=== PATIENT | male | born 1945 | race Caucasian/White ===

== ENCOUNTER 2016-08-30 10:18 | Emergency (ER) | payer MEDICARE, BC ==
--- NOTE | 2016-08-30 11:16 | EDDOCDS ---
Nurse's Notes [facility] Name: Dereck Yañez Age: 71 yrs Sex: Male : 1945 Arrival Date: 08/30/2016 Time: 10:18 Bed TR7 Private MD: Diagnosis: Pain in right shoulder-suspect bursitis Presentation: 08/30 10:31 Presenting complaint: Patient states: im achey. mainly right arm. symptoms for a couple srm of months. today felt like he couldn't get out of bed. states he cant lift his right arm very high. symptoms started with left arm pain since he fell off a ladder. changed medicines for cholesterol and insulin at about the same time. he stopped the new insulin then stopped it but has returned to new insulin as of last week. numbness sometimes to right hand in joints. his PMD is aware of these symptoms. when he wakes in the am his muscle in right arm but improves throughout the day. Presenting complaint: Patient states: denies chest or back pain. thighs hurt in the am too but once he stands up he's fine. Adult Sepsis Screening: The patient does not have new or worsening altered mentation. Patient's respiratory rate is less than 22. Systolic blood pressure is greater than 100. Patient has a qSOFA score of 0- Negative Sepsis Screen. Suicide/Homicide risk assessment- the patient denies having any suicidal and/or homicidal ideations and does not present with any other emotional, behavioral or mental health complaints. Status: Patient is not a financial services internship or dependent. Transition of care:. 10:31 Acuity: JEFFERY Level 3 [facility] 10:31 Method Of Arrival: Walkin/Carried/Asstd srm Triage Assessment: 10:41 General: Appears in no apparent distress, Behavior is appropriate for age, cooperative. srm Pain: Pain currently is 10 out of 10 on a pain scale. Musculoskeletal: Reports right arm pain. Historical: - Allergies: no known allergies; - Home Meds: 1. folic acid 1 mg oral tab once daily 2. levothyroxine 112 mcg Oral tab 1 tab once daily 3. atenolol 100 mg Oral tab 1 tab twice a day 4. lisinopril 20 mg Oral tab 1 tab once daily 5. atorvastatin 40 mg oral tab 1 tab once daily was told to stopp it last week for 2 weeks 6. aspirin 325 mg Oral tab 1 tab once daily 7. iron 65mg daily 8. vitamin b12 5000mg daily 9. Toujeo SoloStar 100 units subcutaneous inpn daily 10. [place]-3 oral oral daily 11. fenofibrate oral 145 mg oral once daily - PMHx: Diabetes - IDDM: uncontrolled; Hypercholesterolemia; Thyroid problem; cardia arrythmia; - PSHx: pig heart valve; cardiac bypass; 2 toes amputations; - Social history: Smoking status: Patient states former smoker of tobacco. No barriers to communication noted, The patient speaks fluent Icelandic, Speaks appropriately for age. - Family history: Not pertinent. - : The pt / caregiver states he / she is not on anticoagulants. Home medication list is obtained from the patient. - Exposure Risk Screening:: None identified. Screenin:14 Screening information is obtained from the patient. Fall risk: No risks identified. [facility] Assistance ADL's: requires no assistance with activities of daily living. Abuse/DV Screen: The patient / caregiver reports he/she is: not in a situation that causes fear, pain or injury. Nutritional screening: No deficits noted. Advance Directives: There is no active DNR order. home support is adequate. Assessment: 11:12 General: Appears in no apparent distress, comfortable, Behavior is appropriate for age, h cooperative, pleasant. Pain: Location: right arm Pain currently is 4 out of 10 on a pain scale. Neurological: No deficits noted. Level of Consciousness is awake, alert, Oriented to person, place, time. Respiratory: Onset: The symptoms/episode began/occurred Airway is patent Respiratory effort is even, unlabored, Respiratory pattern is regular, symmetrical. Derm: Skin is pink, warm & dry. Musculoskeletal: Range of motion limited in right shoulder. Vital Signs: 10:20 BP 176 / 86; Pulse 62; Resp 18; Temp 96.5; Pulse Ox 97% ; Weight 104.33 kg; Height 6 jlm ft. 1 in. (185.42 cm); Pain 9/10; 10:20 Body Mass Index 30.34 (104.33 kg, 185.42 cm) [facility] Vitals: 10:20 Log In Time: August 30, 2016 at 10:21. [facility] ED Course: 10:19 Patient visited by Abigail Parada, [employer]. [facility] 10:19 Patient moved to Waiting jlm 10:26 Patient moved to Pre RCE jlm 10:35 Triage Initiated srm 10:41 Patient moved to Triage 2 srm 10:42 Patient moved to Triage 1 srm 10:44 [facility]el Hutton [facility] btw 10:44 Alise Reid MD is Attending Physician. btw 10:44 Patient visited by Noel Hutton PA. btw 10:[facility] btw 11:12 Patient moved to TR7 [facility] 11:14 The patient / caregiver is instructed regarding the plan of care and ED course. [facility] 11:14 No IV's were initiated during this patient's visit. No procedures done that require [facility] assistance. Order Results: There are currently no results for this order. Outcome: 10:54 Discharge ordered by Provider. btw 11:14 Discharge Assessment: Patient awake, alert and oriented x 3. No cognitive and/or [facility] functional deficits noted. Patient verbalized understanding of disposition instructions. patient administered narcotics - no. The following High Risk Discharge criteria are identified: None. Discharged to home ambulatory, with significant other. Condition: good Condition: stable Condition: improved. Discharge instructions given to patient, Instructed on discharge instructions, follow up and referral plans. Demonstrated understanding of instructions, Pt was receptive of discharge instructions/ teaching. No special radiology studies were completed. Property :Personal belongings accompany Pt. 11:15 Patient left the ED. [facility] Signatures: Shelli Acosta, RN RN [facility] Noel Hutton PA PA btw Hafner, Jane, RN RN [facility] Abigail Parada, [employer] Unit [facility] MTDD
--- NOTE | 2016-08-30 11:16 | EDDOCDS ---
Physician Documentation [facility] Name: Dereck Yañez Age: 71 yrs Sex: Male : 1945 Arrival Date: 08/30/2016 Time: 10:18 Bed TR7 Private MD: Disposition: 08/30/16 10:54 Discharged to Home/Self Care. Impression: Pain in right shoulder - suspect bursitis. - Condition is Stable. - Discharge Instructions: Shoulder Pain, Vbla-xz-Vpcz, Bursitis, Lfyz-vu-Xwms. - Prescriptions for Voltaren 1 % Topical gel - apply 2 gram by TOPICAL route 4 times per day; 100 gram. - Medication Reconciliation, Local Pharmacy Hours form. - Follow up: Orthopaedics, [facility]; When: Call to arrange an appointment; Reason: Further diagnostic work-up, Recheck today's complaints, Continuance of care. - Problem is new. - Symptoms are unchanged. Historical: - Allergies: no known allergies; - Home Meds: 1. folic acid 1 mg oral tab once daily 2. levothyroxine 112 mcg Oral tab 1 tab once daily 3. atenolol 100 mg Oral tab 1 tab twice a day 4. lisinopril 20 mg Oral tab 1 tab once daily 5. atorvastatin 40 mg oral tab 1 tab once daily was told to stopp it last week for 2 weeks 6. aspirin 325 mg Oral tab 1 tab once daily 7. iron 65mg daily 8. vitamin b12 5000mg daily 9. Toujeo SoloStar 100 units subcutaneous inpn daily 10. [place]-3 oral oral daily 11. fenofibrate oral 145 mg oral once daily - PMHx: Diabetes - IDDM: uncontrolled; Hypercholesterolemia; Thyroid problem; cardia arrythmia; - PSHx: pig heart valve; cardiac bypass; 2 toes amputations; - Social history: Smoking status: Patient states former smoker of tobacco. No barriers to communication noted, The patient speaks fluent Samoan, Speaks appropriately for age. - Family history: Not pertinent. - : The pt / caregiver states he / she is not on anticoagulants. Home medication list is obtained from the patient. - Exposure Risk Screening:: None identified. Vital Signs: 08/30 10:20 BP 176 / 86; Pulse 62; Resp 18; Temp 96.5; Pulse Ox 97% ; Weight 104.33 kg / 230.01 jlm lbs; Height 6 ft. 1 in. (185.42 cm); Pain 9/10; 10:20 Body Mass Index 30.34 (104.33 kg, 185.42 cm) [facility] Signatures: Shelli Acosta, RN RN Noel Talbert PA PA btw Ruth Desouza RN RN [facility] MTDD
--- NOTE | 2016-09-01 12:16 | EDDOCDS ---
Physician Documentation [facility] Name: Dereck Yañez Jr Age: 71 yrs Sex: Male : 1945 Arrival Date: 08/30/2016 Time: 10:18 Bed TR7 Private MD: Disposition: 08/30/16 10:54 Discharged to Home/Self Care. Impression: Pain in right shoulder - suspect bursitis. - Condition is Stable. - Discharge Instructions: Shoulder Pain, Cfas-gv-Vtew, Bursitis, Utds-kw-Pjrx. - Prescriptions for Voltaren 1 % Topical gel - apply 2 gram by TOPICAL route 4 times per day; 100 gram. - Medication Reconciliation, Local Pharmacy Hours form. - Follow up: Orthopaedics, [facility]; When: Call to arrange an appointment; Reason: Further diagnostic work-up, Recheck today's complaints, Continuance of care. - Problem is new. - Symptoms are unchanged. Historical: - Allergies: no known allergies; - Home Meds: 1. folic acid 1 mg oral tab once daily 2. levothyroxine 112 mcg Oral tab 1 tab once daily 3. atenolol 100 mg Oral tab 1 tab twice a day 4. lisinopril 20 mg Oral tab 1 tab once daily 5. atorvastatin 40 mg oral tab 1 tab once daily was told to stopp it last week for 2 weeks 6. aspirin 325 mg Oral tab 1 tab once daily 7. iron 65mg daily 8. vitamin b12 5000mg daily 9. Toujeo SoloStar 100 units subcutaneous inpn daily 10. [place]-3 oral oral daily 11. fenofibrate oral 145 mg oral once daily - PMHx: Diabetes - IDDM: uncontrolled; Hypercholesterolemia; Thyroid problem; cardia arrythmia; - PSHx: pig heart valve; cardiac bypass; 2 toes amputations; - Social history: Smoking status: Patient states former smoker of tobacco. No barriers to communication noted, The patient speaks fluent Cuban, Speaks appropriately for age. - Family history: Not pertinent. - : The pt / caregiver states he / she is not on anticoagulants. Home medication list is obtained from the patient. - Exposure Risk Screening:: None identified. Vital Signs: 08/30 10:20 BP 176 / 86; Pulse 62; Resp 18; Temp 96.5; Pulse Ox 97% ; Weight 104.33 kg / 230.01 jlm lbs; Height 6 ft. 1 in. (185.42 cm); Pain 9/10; 10:20 Body Mass Index 30.34 (104.33 kg, 185.42 cm) [facility] MDM: 11:44 [facility] Payment Agreement was scanned into [employer] and attached to record. lg 21:12 T-Sheet-- Draft Copy was scanned into [employer] and attached to record. klr Signatures: Shelli Acosta, RN Tracy Le, Rogelio Reg Noel Hutton PA PA btw Hafner, Jane, RN RN cjh Redder, Kathie klr The chart was reviewed and I authenticate all verbal orders and agree with the evaluation and treatment provided.Attachments: 11:44 [facility] Payment Agreement lg 21:12 T-Sheet-- Draft Copy klr Chart Complete MTDD
--- NOTE | 2016-09-01 12:16 | EDDOCDS ---
Nurse's Notes [facility] Name: Dereck Yañez Jr Age: 71 yrs Sex: Male : 1945 Arrival Date: 08/30/2016 Time: 10:18 Bed TR7 Private MD: Diagnosis: Pain in right shoulder-suspect bursitis Presentation: 08/30 10:31 Presenting complaint: Patient states: im achey. mainly right arm. symptoms for a couple srm of months. today felt like he couldn't get out of bed. states he cant lift his right arm very high. symptoms started with left arm pain since he fell off a ladder. changed medicines for cholesterol and insulin at about the same time. he stopped the new insulin then stopped it but has returned to new insulin as of last week. numbness sometimes to right hand in joints. his PMD is aware of these symptoms. when he wakes in the am his muscle in right arm but improves throughout the day. Presenting complaint: Patient states: denies chest or back pain. thighs hurt in the am too but once he stands up he's fine. Adult Sepsis Screening: The patient does not have new or worsening altered mentation. Patient's respiratory rate is less than 22. Systolic blood pressure is greater than 100. Patient has a qSOFA score of 0- Negative Sepsis Screen. Suicide/Homicide risk assessment- the patient denies having any suicidal and/or homicidal ideations and does not present with any other emotional, behavioral or mental health complaints. Status: Patient is not a interlibrary loan services librarian or dependent. Transition of care:. 10:31 Acuity: JEFFERY Level 3 [facility] 10:31 Method Of Arrival: Walkin/Carried/Asstd srm Triage Assessment: 10:41 General: Appears in no apparent distress, Behavior is appropriate for age, cooperative. srm Pain: Pain currently is 10 out of 10 on a pain scale. Musculoskeletal: Reports right arm pain. Historical: - Allergies: no known allergies; - Home Meds: 1. folic acid 1 mg oral tab once daily 2. levothyroxine 112 mcg Oral tab 1 tab once daily 3. atenolol 100 mg Oral tab 1 tab twice a day 4. lisinopril 20 mg Oral tab 1 tab once daily 5. atorvastatin 40 mg oral tab 1 tab once daily was told to stopp it last week for 2 weeks 6. aspirin 325 mg Oral tab 1 tab once daily 7. iron 65mg daily 8. vitamin b12 5000mg daily 9. Toujeo SoloStar 100 units subcutaneous inpn daily 10. [place]-3 oral oral daily 11. fenofibrate oral 145 mg oral once daily - PMHx: Diabetes - IDDM: uncontrolled; Hypercholesterolemia; Thyroid problem; cardia arrythmia; - PSHx: pig heart valve; cardiac bypass; 2 toes amputations; - Social history: Smoking status: Patient states former smoker of tobacco. No barriers to communication noted, The patient speaks fluent Serbian, Speaks appropriately for age. - Family history: Not pertinent. - : The pt / caregiver states he / she is not on anticoagulants. Home medication list is obtained from the patient. - Exposure Risk Screening:: None identified. Screenin:14 Screening information is obtained from the patient. Fall risk: No risks identified. [facility] Assistance ADL's: requires no assistance with activities of daily living. Abuse/DV Screen: The patient / caregiver reports he/she is: not in a situation that causes fear, pain or injury. Nutritional screening: No deficits noted. Advance Directives: There is no active DNR order. home support is adequate. Assessment: 11:12 General: Appears in no apparent distress, comfortable, Behavior is appropriate for age, cjh cooperative, pleasant. Pain: Location: right arm Pain currently is 4 out of 10 on a pain scale. Neurological: No deficits noted. Level of Consciousness is awake, alert, Oriented to person, place, time. Respiratory: Onset: The symptoms/episode began/occurred Airway is patent Respiratory effort is even, unlabored, Respiratory pattern is regular, symmetrical. Derm: Skin is pink, warm & dry. Musculoskeletal: Range of motion limited in right shoulder. Vital Signs: 10:20 BP 176 / 86; Pulse 62; Resp 18; Temp 96.5; Pulse Ox 97% ; Weight 104.33 kg; Height 6 jlm ft. 1 in. (185.42 cm); Pain 9/10; 10:20 Body Mass Index 30.34 (104.33 kg, 185.42 cm) [facility] Vitals: 10:20 Log In Time: August 30, 2016 at 10:21. [facility] ED Course: 10:19 Patient visited by Abigail Parada, [employer]. [facility] 10:19 Patient moved to Waiting jlm 10:26 Patient moved to Pre RCE jlm 10:35 Triage Initiated srm 10:41 Patient moved to Triage 2 srm 10:42 Patient moved to Triage 1 srm 10:44 Noel [facility]utton [facility] btw 10:44 Alise Reid MD is Attending Physician. btw 10:44 Patient visited by Noel Hutton PA. btw 10:53 [facility]. btw 11:12 Patient moved to TR7 cj 11:14 The patient / caregiver is instructed regarding the plan of care and ED course. [facility] 11:14 No IV's were initiated during this patient's visit. No procedures done that require [facility] assistance. 11:37 Patient name changed from Dereck\S\\S\Casco\S\ to Dereck\S\E\S\Otilio. EDMS 11:44 [facility] Payment Agreement was scanned into [employer] and attached to record. 11:52 Patient name changed from Dereck\S\E\S\Casco\S\ to Dereck\S\E\S\Otilio Jr. EDMS 21:12 T-Sheet-- Draft Copy was scanned into [employer] and attached to record. klr Order Results: There are currently no results for this order. Outcome: 10:54 Discharge ordered by Provider. btw 11:14 Discharge Assessment: Patient awake, alert and oriented x 3. No cognitive and/or [facility] functional deficits noted. Patient verbalized understanding of disposition instructions. patient administered narcotics - no. The following High Risk Discharge criteria are identified: None. Discharged to home ambulatory, with significant other. Condition: good Condition: stable Condition: improved. Discharge instructions given to patient, Instructed on discharge instructions, follow up and referral plans. Demonstrated understanding of instructions, Pt was receptive of discharge instructions/ teaching. No special radiology studies were completed. Property :Personal belongings accompany Pt. 11:15 Patient left the ED. [facility] Signatures: Dispatcher [employer] EDMS Shelli Acosta, RN RN [facility] Tracy Lopez, Reg Reg lg Noel Hutton PA PA btw Hafner, Jane, RN RN [facility] Abigail Parada, Conveyor Operator Unit [facility] Viv Pearson Chart Complete MTDD
--- NOTE | 2016-09-01 12:16 | EDDOCDS ---
Physician Documentation [facility] Name: Dereck Yañez Jr Age: 71 yrs Sex: Male : 1945 Arrival Date: 08/30/2016 Time: 10:18 Bed TR7 Private MD: Disposition: 08/30/16 10:54 Discharged to Home/Self Care. Impression: Pain in right shoulder - suspect bursitis. - Condition is Stable. - Discharge Instructions: Shoulder Pain, Bcnb-iz-Qfly, Bursitis, Lruj-tf-Jvsa. - Prescriptions for Voltaren 1 % Topical gel - apply 2 gram by TOPICAL route 4 times per day; 100 gram. - Medication Reconciliation, Local Pharmacy Hours form. - Follow up: Orthopaedics, [facility]; When: Call to arrange an appointment; Reason: Further diagnostic work-up, Recheck today's complaints, Continuance of care. - Problem is new. - Symptoms are unchanged. Historical: - Allergies: no known allergies; - Home Meds: 1. folic acid 1 mg oral tab once daily 2. levothyroxine 112 mcg Oral tab 1 tab once daily 3. atenolol 100 mg Oral tab 1 tab twice a day 4. lisinopril 20 mg Oral tab 1 tab once daily 5. atorvastatin 40 mg oral tab 1 tab once daily was told to stopp it last week for 2 weeks 6. aspirin 325 mg Oral tab 1 tab once daily 7. iron 65mg daily 8. vitamin b12 5000mg daily 9. Toujeo SoloStar 100 units subcutaneous inpn daily 10. [place]-3 oral oral daily 11. fenofibrate oral 145 mg oral once daily - PMHx: Diabetes - IDDM: uncontrolled; Hypercholesterolemia; Thyroid problem; cardia arrythmia; - PSHx: pig heart valve; cardiac bypass; 2 toes amputations; - Social history: Smoking status: Patient states former smoker of tobacco. No barriers to communication noted, The patient speaks fluent Guinean, Speaks appropriately for age. - Family history: Not pertinent. - : The pt / caregiver states he / she is not on anticoagulants. Home medication list is obtained from the patient. - Exposure Risk Screening:: None identified. Vital Signs: 08/30 10:20 BP 176 / 86; Pulse 62; Resp 18; Temp 96.5; Pulse Ox 97% ; Weight 104.33 kg / 230.01 jlm lbs; Height 6 ft. 1 in. (185.42 cm); Pain 9/10; 10:20 Body Mass Index 30.34 (104.33 kg, 185.42 cm) [facility] MDM: 11:44 [facility] Payment Agreement was scanned into MED[employer] and attached to record. lg 21:12 T-Sheet-- Draft Copy was scanned into [facility] and attached to record. klr Signatures: Shelli Acosta, RN Tracy Le, Rogelio Reg Noel Hutton PA PA btw Hafner, Jane, RN RN cjh Redder, Kathie klr The chart was reviewed and I authenticate all verbal orders and agree with the evaluation and treatment provided.Attachments: 11:44 [facility] Payment Agreement lg 21:12 T-Sheet-- Draft Copy klr Chart Complete MTDD
== END 2016-08-30 11:15 | disposition home or self-care (01) ==
LOC: M ED 10:18
DX: M25.511 Pain in right shoulder (principal); E11.9 Type 2 diabetes mellitus without complications; E78.00 Pure hypercholesterolemia, unspecified; E07.9 Disorder of thyroid, unspecified; I49.9 Cardiac arrhythmia, unspecified; Z79.899 Other long term (current) drug therapy; Z79.82 Long term (current) use of aspirin; Z79.4 Long term (current) use of insulin

== ENCOUNTER 2017-09-23 08:07 | Inpatient (IN) | payer MEDICARE ==
[2017-09-23] MEDS: NS 1,000 ML IV ×2 (02:29→16:31)
[2017-09-23] MEDS: LEVOTHYROXINE 100MCG TABLET (0.1MG) PO (06:00)
[2017-09-23 08:54] LABS: BEDSIDE GLUCOSE 351 MG/DL (83-110)
[2017-09-23 08:54] LABS: BASO % 0.1 % (0.0-1.0); HEMATOCRIT 36.2 % (42.0-52.0); HEMOGLOBIN 12.4 g/dl (14.0-18.0); IMMATURE GRANULOCYTE % 1.8 % (0-3.0); MEAN CORPUSCULAR HGB CONC 34.3 g/dl (32.0-36.5); MEAN CORPUSCULAR VOLUME 84.6 fl (80.0-96.0); MONO # 1.5 10^3/uL (0.0-0.8); MONO % 9.6 % (0.0-5.0); NEUTROPHILS # 13.5 10^3/uL (1.8-7.7); NEUTROPHILS % 87.5 % (36.0-66.0); PLATELET COUNT, AUTOMATED 132 10^3/uL (150-450); RED BLOOD COUNT 4.28 10^6/uL (4.30-6.10); RED CELL DISTRIBUTION WIDTH 15.2 % (11.5-14.5); WHITE BLOOD COUNT 15.4 10^3/uL (4.0-10.0)
[2017-09-23] MEDS: ASPIRIN 81 MG CHEW TABLET PO (08:56)
[2017-09-23] MEDS: ONDANSETRON 4MG/2ML VIAL (J2405) IV (08:56)
[2017-09-23] MEDS: MORPHINE 4 MG/ML 1ML VIAL (J2270) IV (08:56)
[2017-09-23 09:13] LABS: INR 1.23; PROTHROMBIN TIME 15.7 SECONDS (12.4-14.5)
[2017-09-23 09:14] LABS: ALBUMIN 2.9 GM/DL (3.2-5.2); ALBUMIN/GLOBULIN RATIO 0.66 (1.00-1.93); ALKALINE PHOSPHATASE 74 U/L (45-117); ALT/SGPT 19 U/L (12-78); ANION GAP 15 MEQ/L (8-16); BILIRUBIN,DIRECT 0.5 MG/DL (0.0-0.2); BILIRUBIN,TOTAL 1.4 MG/DL (0.2-1.0); BLOOD UREA NITROGEN 51 MG/DL (7-18); CALCIUM LEVEL 8.1 MG/DL (8.8-10.2); CARBON DIOXIDE LEVEL 18 MEQ/L (21-32); CHLORIDE LEVEL 98 MEQ/L (98-107); CPK CREATINE PHOSPHOKINASE 74 U/L (39-308); CREATININE FOR GFR 2.38 MG/DL (0.70-1.30); GLOMERULAR FILTRATION RATE 28.6 (>42); GLUCOSE, FASTING 319 MG/DL (70-100); NT-PRO BNP 2361 PG/ML (<125); POTASSIUM SERUM 4.2 MEQ/L (3.5-5.1); SODIUM LEVEL 131 MEQ/L (136-145); TOTAL PROTEIN 7.3 GM/DL (6.4-8.2); TROPONIN I 0.02 NG/ML (< 0.10)
[2017-09-23 09:17] LABS: LYMPH # 0.2 10^3/uL (1.5-4.5); POSITIVE DIFF POS FLAG
[2017-09-23 09:19] LABS: AST/SGOT 15 U/L (7-37); CK-MB VALUE MASS 1.3 NG/ML (0.0-3.6); LIPASE 138 U/L (73-393); MB/CK RELATIVE INDEX 1.75 (< OR =4)
[2017-09-23 09:33] LABS: LACTIC ACID SEPSIS PROTOCOL 2.4 MMOL/L (0.4-2.0)
[2017-09-23] MEDS ORDERED: IPRATROPIUM 0.5MG/ALBUTEROL 2.5MG INH SOL UD 3ML (DUONEB)(J7620) NEB (13:15)
[2017-09-23] MEDS: IPRATROPIUM 0.5MG/ALBUTEROL 2.5MG INH SOL UD 3ML (DUONEB)(J7620) NEB ×2 (13:32→20:00)
[2017-09-23] MEDS ORDERED: ONDANSETRON 4 MG TAB (S0181) PO (13:45)
[2017-09-23] MEDS ORDERED: BISACODYL 5 MG TAB PO (13:45)
[2017-09-23] MEDS: LISINOPRIL 20 MG TAB PO (13:57)
[2017-09-23] MEDS: ATORVASTATIN 20 MG TAB PO (13:57)
[2017-09-23] MEDS: FOLIC ACID 1 MG TAB PO (13:58)
[2017-09-23] MEDS: AZITHROMYCIN INJ 500 MG, VIAL MATE ADAPTER 1 EACH in D5W 250 ML IV (13:58)
[2017-09-23 15:16] LABS: BEDSIDE GLUCOSE 408 MG/DL (83-110)
[2017-09-23] MEDS ORDERED: GLUCOSE 4 GM CHEW TABLET PO (15:30)
[2017-09-23] MEDS ORDERED: GLUCAGON FOR INJ 1 MG VIAL (J1610) SC (15:30)
[2017-09-23] MEDS ORDERED: DEXTROSE 50% 50 ML SYRINGE IV (15:30)
[2017-09-23 15:50] LABS: CK-MB VALUE MASS 1.1 NG/ML (0.0-3.6); CPK CREATINE PHOSPHOKINASE 60 U/L (39-308); MB/CK RELATIVE INDEX 1.83 (< OR =4); TROPONIN I 0.02 NG/ML (< 0.10)
[2017-09-23] MEDS: CEFTRIAXONE SOD 2 GM in APPROPRIATE DILUENT 1 EA IV (16:29)
[2017-09-23] MEDS: CYANOCOBALAMIN 500 MCG TAB PO (16:30)
[2017-09-23] MEDS: FERROUS SULFATE 325MG TAB PO (16:30)
[2017-09-23] MEDS: FENOFIBRATE 145 MG TAB (TRICOR) PO (16:30)
[2017-09-23] MEDS: METOPROLOL TARTRATE 100 MG TAB PO (16:31)
[2017-09-23] MEDS: OMEGA-3 1050MG CAPSULE PO (16:31)
[2017-09-23] MEDS: HumaLOG INSULIN (NovoLOG) PER UNIT SC ×2 (16:59→20:56)
[2017-09-23] MEDS: ACETAMINOPHEN TAB 650MG DOSE (2X325MG) PO ×2 (19:46→23:46)
[2017-09-23] MEDS: HEPARIN SOD (PORCINE) 5000 UNITS/ML VIAL SQ (21:02)
[2017-09-23] MEDS: LEVEMIR (INSULIN DETEMIR) 1 UNITS/0.01ML SC (21:03)
[2017-09-23 21:06] LABS: BEDSIDE GLUCOSE 241 MG/DL (83-110)
[2017-09-23 22:00] LABS: CK-MB VALUE MASS 1.2 NG/ML (0.0-3.6); CPK CREATINE PHOSPHOKINASE 68 U/L (39-308); MB/CK RELATIVE INDEX 1.76 (< OR =4); TROPONIN I 0.04 NG/ML (< 0.10)
[2017-09-24 01:33] LABS: AMORPHOUS SEDIMENT SMALL (NEGATIVE); APPEARANCE, URINE CLOUDY (CLEAR); BACTERIA, URINE AUTO 1+ (NEGATIVE); BILIRUBIN, URINE AUTO NEGATIVE (NEGATIVE); BLOOD, URINE BLOOD 1+ (NEGATIVE); COLOR, URINE YELLOW (YELLOW); GLUCOSE, URINE (UA) AUTO 3+ mg/dL (NEGATIVE); KETONE, URINE AUTO NEGATIVE (NEGATIVE); LEUKOCYTE ESTERASE, URINE AUTO NEGATIVE (NEGATIVE); MUCUS, URINE SMALL (NEGATIVE); NITRITE, URINE AUTO NEGATIVE (NEGATIVE); PROTEIN, URINE AUTO 3+ mg/dL (NEGATIVE); RBC, URINE AUTO 7 /HPF (0-3); SQUAMOUS EPITHELIAL CELL UR AU 3 /HPF (0-6); WBC, URINE AUTO 3 /HPF (0-3)
[2017-09-24] MEDS: IPRATROPIUM 0.5MG/ALBUTEROL 2.5MG INH SOL UD 3ML (DUONEB)(J7620) NEB ×4 (02:00→20:00)
[2017-09-24] MEDS: ACETAMINOPHEN TAB 650MG DOSE (2X325MG) PO ×2 (03:53→08:23)
[2017-09-24] MEDS: VANCOMYCIN HCL 1,000 MG, VIAL MATE ADAPTER 1 EACH in D5W 250 ML IV ×2 (04:58→06:15)
[2017-09-24 05:55] LABS: BASO % 0.1 % (0.0-1.0); EOS % 0.1 % (0.0-3.0); HEMATOCRIT 30.3 % (42.0-52.0); HEMOGLOBIN 10.3 g/dl (14.0-18.0); IMMATURE GRANULOCYTE % 1.7 % (0-3.0); LYMPH # 0.5 10^3/uL (1.5-4.5); LYMPH % 3.5 % (24.0-44.0); MEAN CORPUSCULAR HEMOGLOBIN 28.8 pg (27.0-33.0); MEAN CORPUSCULAR VOLUME 84.6 fl (80.0-96.0); MONO # 1.7 10^3/uL (0.0-0.8); MONO % 13.2 % (0.0-5.0); NEUTROPHILS # 10.5 10^3/uL (1.8-7.7); NEUTROPHILS % 81.4 % (36.0-66.0); PLATELET COUNT, AUTOMATED 133 10^3/uL (150-450); RED BLOOD COUNT 3.58 10^6/uL (4.30-6.10); RED CELL DISTRIBUTION WIDTH 15.4 % (11.5-14.5); WHITE BLOOD COUNT 12.8 10^3/uL (4.0-10.0)
[2017-09-24 06:15] LABS: ALBUMIN 2.1 GM/DL (3.2-5.2); ALBUMIN/GLOBULIN RATIO 0.48 (1.00-1.93); ALKALINE PHOSPHATASE 61 U/L (45-117); ALT/SGPT 12 U/L (12-78); ANION GAP 9 MEQ/L (8-16); AST/SGOT 12 U/L (7-37); BILIRUBIN,TOTAL 0.6 MG/DL (0.2-1.0); BLOOD UREA NITROGEN 54 MG/DL (7-18); CALCIUM LEVEL 7.4 MG/DL (8.8-10.2); CARBON DIOXIDE LEVEL 21 MEQ/L (21-32); CHLORIDE LEVEL 103 MEQ/L (98-107); CREATININE FOR GFR 2.43 MG/DL (0.70-1.30); GLOMERULAR FILTRATION RATE 27.9 (>42); GLUCOSE, FASTING 118 MG/DL (70-100); MAGNESIUM LEVEL 2.1 MG/DL (1.8-2.4); POTASSIUM SERUM 3.5 MEQ/L (3.5-5.1); SODIUM LEVEL 133 MEQ/L (136-145); TOTAL PROTEIN 6.5 GM/DL (6.4-8.2)
[2017-09-24] MEDS: LEVOTHYROXINE 100MCG TABLET (0.1MG) PO (06:15)
[2017-09-24] MEDS: ASPIRIN ENTERIC 325 MG TAB PO (08:23)
[2017-09-24] MEDS: HumaLOG INSULIN (NovoLOG) PER UNIT SC ×4 (08:23→20:28)
[2017-09-24] MEDS: ATORVASTATIN 20 MG TAB PO (08:23)
[2017-09-24] MEDS: FENOFIBRATE 145 MG TAB (TRICOR) PO (08:23)
[2017-09-24] MEDS: METOPROLOL TARTRATE 100 MG TAB PO (08:24)
[2017-09-24] MEDS: HEPARIN SOD (PORCINE) 5000 UNITS/ML VIAL SQ ×2 (08:24→20:54)
[2017-09-24] MEDS: FOLIC ACID 1 MG TAB PO (08:24)
[2017-09-24] MEDS: FERROUS SULFATE 325MG TAB PO (08:24)
[2017-09-24] MEDS: OMEGA-3 1050MG CAPSULE PO (08:24)
[2017-09-24] MEDS: CYANOCOBALAMIN 500 MCG TAB PO (08:24)
[2017-09-24] MEDS: NS 1,000 ML IV ×3 (08:25→19:29)
[2017-09-24 11:34] LABS: BEDSIDE GLUCOSE 138 MG/DL (83-110)
[2017-09-24] MEDS: traMADol 50 MG TAB PO ×2 (12:23→23:21)
[2017-09-24] MEDS: AZITHROMYCIN INJ 500 MG, VIAL MATE ADAPTER 1 EACH in D5W 250 ML IV (13:39)
[2017-09-24] MEDS: CEFTRIAXONE SOD 2 GM in APPROPRIATE DILUENT 1 EA IV (15:05)
[2017-09-24 16:57] LABS: BEDSIDE GLUCOSE 378 MG/DL (83-110)
[2017-09-24 20:30] LABS: BEDSIDE GLUCOSE 88 MG/DL (83-110)
[2017-09-24] MEDS: LEVEMIR (INSULIN DETEMIR) 1 UNITS/0.01ML SC (20:54)
[2017-09-25] MEDS: IPRATROPIUM 0.5MG/ALBUTEROL 2.5MG INH SOL UD 3ML (DUONEB)(J7620) NEB ×4 (01:28→20:00)
[2017-09-25] MEDS: NS 1,000 ML IV ×3 (04:00→21:31)
[2017-09-25 05:10] LABS: BASO % 0.1 % (0.0-1.0); EOS % 0.1 % (0.0-3.0); HEMOGLOBIN 9.8 g/dl (14.0-18.0); IMMATURE GRANULOCYTE % 1.4 % (0-3.0); LYMPH # 0.3 10^3/uL (1.5-4.5); LYMPH % 2.5 % (24.0-44.0); MEAN CORPUSCULAR HEMOGLOBIN 28.6 pg (27.0-33.0); MEAN CORPUSCULAR HGB CONC 33.8 g/dl (32.0-36.5); MEAN CORPUSCULAR VOLUME 84.5 fl (80.0-96.0); MONO # 1.6 10^3/uL (0.0-0.8); MONO % 11.9 % (0.0-5.0); NEUTROPHILS # 11.3 10^3/uL (1.8-7.7); PLATELET COUNT, AUTOMATED 138 10^3/uL (150-450); RED BLOOD COUNT 3.43 10^6/uL (4.30-6.10); RED CELL DISTRIBUTION WIDTH 15.7 % (11.5-14.5); WHITE BLOOD COUNT 13.4 10^3/uL (4.0-10.0)
[2017-09-25 05:27] LABS: ALBUMIN 1.9 GM/DL (3.2-5.2); ALBUMIN/GLOBULIN RATIO 0.44 (1.00-1.93); ALKALINE PHOSPHATASE 78 U/L (45-117); ALT/SGPT 16 U/L (12-78); ANION GAP 10 MEQ/L (8-16); AST/SGOT 21 U/L (7-37); BILIRUBIN,TOTAL 0.5 MG/DL (0.2-1.0); BLOOD UREA NITROGEN 54 MG/DL (7-18); CALCIUM LEVEL 7.4 MG/DL (8.8-10.2); CARBON DIOXIDE LEVEL 21 MEQ/L (21-32); CHLORIDE LEVEL 104 MEQ/L (98-107); CREATININE FOR GFR 2.38 MG/DL (0.70-1.30); GLOMERULAR FILTRATION RATE 28.6 (>42); GLUCOSE, FASTING 44 MG/DL (70-100); MAGNESIUM LEVEL 2.1 MG/DL (1.8-2.4); POTASSIUM SERUM 3.1 MEQ/L (3.5-5.1); SODIUM LEVEL 135 MEQ/L (136-145); TOTAL PROTEIN 6.2 GM/DL (6.4-8.2)
[2017-09-25] MEDS: VANCOMYCIN HCL 1,000 MG, VIAL MATE ADAPTER 1 EACH in D5W 250 ML IV (05:56)
[2017-09-25] MEDS: LEVOTHYROXINE 112MCG TABLET (0.112MG) PO (05:56)
[2017-09-25 06:48] LABS: BEDSIDE GLUCOSE 114 MG/DL (83-110)
[2017-09-25] MEDS: HumaLOG INSULIN (NovoLOG) PER UNIT SC ×4 (07:30→20:30)
[2017-09-25] MEDS: ATORVASTATIN 20 MG TAB PO (08:27)
[2017-09-25] MEDS: CYANOCOBALAMIN 500 MCG TAB PO (08:27)
[2017-09-25] MEDS: HEPARIN SOD (PORCINE) 5000 UNITS/ML VIAL SQ ×2 (08:27→20:44)
[2017-09-25] MEDS: ASPIRIN ENTERIC 325 MG TAB PO (08:27)
[2017-09-25 08:28] LABS: BEDSIDE GLUCOSE 139 MG/DL (83-110)
[2017-09-25] MEDS: OMEGA-3 1050MG CAPSULE PO (08:28)
[2017-09-25] MEDS: FENOFIBRATE 145 MG TAB (TRICOR) PO (08:28)
[2017-09-25] MEDS: FOLIC ACID 1 MG TAB PO (08:28)
[2017-09-25] MEDS: METOPROLOL TARTRATE 100 MG TAB PO (08:28)
[2017-09-25] MEDS: FERROUS SULFATE 325MG TAB PO (08:28)
[2017-09-25] MEDS: POTASSIUM CHLORIDE 10 MEQ SR TABLET PO (08:47)
[2017-09-25] MEDS: traMADol 50 MG TAB PO ×2 (12:40→20:53)
[2017-09-25 12:41] LABS: BEDSIDE GLUCOSE 121 MG/DL (83-110)
[2017-09-25] MEDS: AZITHROMYCIN INJ 500 MG, VIAL MATE ADAPTER 1 EACH in D5W 250 ML IV (13:45)
[2017-09-25] MEDS: CEFTRIAXONE SOD 2 GM in APPROPRIATE DILUENT 1 EA IV (15:28)
[2017-09-25 17:00] LABS: BEDSIDE GLUCOSE 97 MG/DL (83-110)
[2017-09-25 20:34] LABS: BEDSIDE GLUCOSE 100 MG/DL (83-110)
[2017-09-25] MEDS ORDERED: LEVEMIR (INSULIN DETEMIR) 1 UNITS/0.01ML SC (21:00)
[2017-09-26] MEDS: IPRATROPIUM 0.5MG/ALBUTEROL 2.5MG INH SOL UD 3ML (DUONEB)(J7620) NEB (02:00)
[2017-09-26 05:40] LABS: BASO % 0.2 % (0.0-1.0); EOS % 0.4 % (0.0-3.0); HEMATOCRIT 30.4 % (42.0-52.0); HEMOGLOBIN 10.1 g/dl (14.0-18.0); IMMATURE GRANULOCYTE % 1.9 % (0-3.0); LYMPH # 0.5 10^3/uL (1.5-4.5); LYMPH % 4.8 % (24.0-44.0); MEAN CORPUSCULAR HEMOGLOBIN 28.5 pg (27.0-33.0); MEAN CORPUSCULAR HGB CONC 33.2 g/dl (32.0-36.5); MEAN CORPUSCULAR VOLUME 85.9 fl (80.0-96.0); MONO # 1.1 10^3/uL (0.0-0.8); MONO % 11.8 % (0.0-5.0); NEUTROPHILS # 7.5 10^3/uL (1.8-7.7); NEUTROPHILS % 80.9 % (36.0-66.0); PLATELET COUNT, AUTOMATED 141 10^3/uL (150-450); RED BLOOD COUNT 3.54 10^6/uL (4.30-6.10); RED CELL DISTRIBUTION WIDTH 15.6 % (11.5-14.5); WHITE BLOOD COUNT 9.3 10^3/uL (4.0-10.0)
[2017-09-26 06:01] LABS: ALBUMIN 1.9 GM/DL (3.2-5.2); ALBUMIN/GLOBULIN RATIO 0.42 (1.00-1.93); ALKALINE PHOSPHATASE 103 U/L (45-117); ALT/SGPT 15 U/L (12-78); ANION GAP 10 MEQ/L (8-16); AST/SGOT 20 U/L (7-37); BILIRUBIN,TOTAL 0.4 MG/DL (0.2-1.0); BLOOD UREA NITROGEN 42 MG/DL (7-18); CALCIUM LEVEL 6.9 MG/DL (8.8-10.2); CARBON DIOXIDE LEVEL 20 MEQ/L (21-32); CHLORIDE LEVEL 105 MEQ/L (98-107); CREATININE FOR GFR 1.98 MG/DL (0.70-1.30); GLOMERULAR FILTRATION RATE 35.4 (>42); GLUCOSE, FASTING 75 MG/DL (70-100); MAGNESIUM LEVEL 2.2 MG/DL (1.8-2.4); POTASSIUM SERUM 3.6 MEQ/L (3.5-5.1); SODIUM LEVEL 135 MEQ/L (136-145); TOTAL PROTEIN 6.4 GM/DL (6.4-8.2); VANCOMYCIN LEVEL TROUGH 17.3 UG/ML (10.0-20.0)
[2017-09-26] MEDS: LEVOTHYROXINE 112MCG TABLET (0.112MG) PO (06:11)
[2017-09-26] MEDS: VANCOMYCIN HCL 1,000 MG, VIAL MATE ADAPTER 1 EACH in D5W 250 ML IV (06:11)
[2017-09-26] MEDS: NS 1,000 ML IV (06:11)
[2017-09-26 06:46] LABS: BEDSIDE GLUCOSE 83 MG/DL (83-110)
[2017-09-26] MEDS: HumaLOG INSULIN (NovoLOG) PER UNIT SC (07:30)
[2017-09-26 08:45] LABS: LACTIC ACID SEPSIS PROTOCOL 1.3 MMOL/L (0.4-2.0)
[2017-09-26] MEDS: ATORVASTATIN 20 MG TAB PO (09:00)
[2017-09-26] MEDS: HEPARIN SOD (PORCINE) 5000 UNITS/ML VIAL SQ (09:00)
[2017-09-26] MEDS: FENOFIBRATE 145 MG TAB (TRICOR) PO (09:14)
[2017-09-26] MEDS: CYANOCOBALAMIN 500 MCG TAB PO (09:14)
[2017-09-26] MEDS: OMEGA-3 1050MG CAPSULE PO (09:14)
[2017-09-26] MEDS: DOXYCYCLINE HYCLATE 100 MG TAB PO (09:14)
[2017-09-26] MEDS: FOLIC ACID 1 MG TAB PO (09:14)
[2017-09-26] MEDS: ASPIRIN ENTERIC 325 MG TAB PO (09:14)
[2017-09-26] MEDS: FERROUS SULFATE 325MG TAB PO (09:14)
[2017-09-26] MEDS: METOPROLOL TARTRATE 100 MG TAB PO (09:15)
[2017-09-28 00:07] LABS: BODY FLUID CULTURE Not Indicated (.); LEGIONELLA ANTIGEN URINE Negative (Negative); ORGANISM ID Not indicated. (.); SPECIMEN SOURCE Urine (.); URINE STREP PNEUMONIAE ANTIGEN Negative (Negative)
== END 2017-09-26 11:52 | disposition home or self-care (01) | DRG 871 ==
LOC: M MSPAV 09-25 17:10 → M ED 08:07 → M ED INP 11:26 → M PCU 14:48
DX: A41.9 Sepsis, unspecified organism (principal); J18.9 Pneumonia, unspecified organism; J90 Pleural effusion, not elsewhere classified; N17.9 Acute kidney failure, unspecified; E87.2 Acidosis; E46 Unspecified protein-calorie malnutrition; E87.1 Hypo-osmolality and hyponatremia; E86.0 Dehydration; R65.20 Severe sepsis without septic shock; E11.649 Type 2 diabetes mellitus with hypoglycemia without coma; L97.529 Non-pressure chronic ulcer of other part of left foot with unspecified severity; Z95.3 Presence of xenogenic heart valve; Z95.1 Presence of aortocoronary bypass graft; Z89.421 Acquired absence of other right toe(s); Z87.891 Personal history of nicotine dependence; Z88.8 Allergy status to other drugs, medicaments and biological substances; Z91.041 Radiographic dye allergy status; Z79.82 Long term (current) use of aspirin; Z79.899 Other long term (current) drug therapy

== ENCOUNTER 2017-09-27 11:57 | Inpatient (IN) | payer MEDICARE ==
[2017-09-27] MEDS: LEVOTHYROXINE 112MCG TABLET (0.112MG) PO (06:00)
[2017-09-27] MEDS: METOPROLOL TARTRATE 100 MG TAB PO ×2 (09:00→20:39)
[2017-09-27] MEDS: amLODIPine 5 MG TAB PO ×2 (09:00→20:39)
[~2017-09-27 11:57] MED LIST: ACETAMINOPHEN TAB 650MG DOSE (2X325MG) PO; CEFTAROLINE FOSAMIL 600 MG in D5W MINI-BAG PLUS 50 ML IV; DEXTROSE 50% 50 ML SYRINGE IV; GLUCAGON FOR INJ 1 MG VIAL (J1610) SC; GLUCOSE 4 GM CHEW TABLET PO; IPRATROPIUM 0.5MG/ALBUTEROL 2.5MG INH SOL UD 3ML (DUONEB)(J7620) NEB
[2017-09-27] MEDS: HumaLOG INSULIN (NovoLOG) PER UNIT SC ×3 (12:00→20:42)
[2017-09-27] MEDS: CYANOCOBALAMIN 500 MCG TAB PO (12:27)
[2017-09-27] MEDS: ATORVASTATIN 20 MG TAB PO (12:27)
[2017-09-27] MEDS: ASPIRIN 325 MG TAB PO (12:27)
[2017-09-27] MEDS: DOCUSATE SODIUM 100 MG CAP PO ×2 (12:28→20:39)
[2017-09-27] MEDS: FENOFIBRATE 145 MG TAB (TRICOR) PO (12:28)
[2017-09-27] MEDS: FOLIC ACID 1 MG TAB PO (12:28)
[2017-09-27] MEDS: OMEGA-3 1050MG CAPSULE PO (12:28)
[2017-09-27] MEDS: FERROUS SULFATE 325MG TAB PO (12:28)
[2017-09-27 12:42] LABS: BEDSIDE GLUCOSE 231 MG/DL (83-110)
[2017-09-27] MEDS: METOCLOPRAMIDE INJ 10MG/2ML VIAL (J2765) IV (13:57)
[2017-09-27] MEDS: CEFTAROLINE FOSAMIL 400 MG in D5W MINI-BAG PLUS 50 ML IV (13:58)
[2017-09-27 14:17] LABS: HEMATOCRIT 31.7 % (42.0-52.0); HEMOGLOBIN 10.7 g/dl (14.0-18.0); MEAN CORPUSCULAR HEMOGLOBIN 28.4 pg (27.0-33.0); MEAN CORPUSCULAR HGB CONC 33.8 g/dl (32.0-36.5); MEAN CORPUSCULAR VOLUME 84.1 fl (80.0-96.0); PLATELET COUNT, AUTOMATED 171 10^3/uL (150-450); RED BLOOD COUNT 3.77 10^6/uL (4.30-6.10); RED CELL DISTRIBUTION WIDTH 15.1 % (11.5-14.5); WHITE BLOOD COUNT 12.1 10^3/uL (4.0-10.0)
[2017-09-27 14:40] LABS: ERYTHROCYTE SEDIMENTATION RATE 126 mm/hr (0-20)
[2017-09-27 14:47] LABS: ALBUMIN 2.1 GM/DL (3.2-5.2); ALBUMIN/GLOBULIN RATIO 0.51 (1.00-1.93); ALKALINE PHOSPHATASE 132 U/L (45-117); ALT/SGPT 21 U/L (12-78); ANION GAP 14 MEQ/L (8-16); AST/SGOT 26 U/L (7-37); BILIRUBIN,TOTAL 0.7 MG/DL (0.2-1.0); BLOOD UREA NITROGEN 35 MG/DL (7-18); CALCIUM LEVEL 7.7 MG/DL (8.8-10.2); CARBON DIOXIDE LEVEL 19 MEQ/L (21-32); CHLORIDE LEVEL 101 MEQ/L (98-107); GLOMERULAR FILTRATION RATE 39.5 (>42); GLUCOSE, FASTING 222 MG/DL (70-100); POTASSIUM SERUM 4.2 MEQ/L (3.5-5.1); SODIUM LEVEL 134 MEQ/L (136-145); TOTAL PROTEIN 6.2 GM/DL (6.4-8.2)
[2017-09-27 15:22] LABS: LDH LACTATE DEHYDROGENASE 199 U/L (87-241)
[2017-09-27] MEDS ORDERED: MOM 30ML SUSPENSION UDC PO (15:30)
[2017-09-27] MEDS: IPRATROPIUM 0.5MG/ALBUTEROL 2.5MG INH SOL UD 3ML (DUONEB)(J7620) NEB (16:00)
[2017-09-27] MEDS ORDERED: LIDOCAINE 1% MDV 20ML VIAL As Ordered (16:04)
[2017-09-27 18:05] LABS: BF MONONUCLEAR CELL % 23.2 % (0-0); BF POLYMORPHONUCLEAR CELL % 76.8 % (0-0); RBC BODY FLUID < 2 10^3/uL (<2); WBC BODY FLUID 259 /uL (0-10)
[2017-09-27 18:06] LABS: APPEARANCE, BODY FLUID CLEAR (CLEAR); PLEURAL FL COLOR YELLOW (COLORLESS); SOURCE, BODY FLUID PLEURAL
[2017-09-27 18:07] LABS: BF DIFF IF INDICATED? YES (NO)
[2017-09-27 18:10] LABS: BEDSIDE GLUCOSE 227 MG/DL (83-110)
[2017-09-27 18:20] LABS: PH BODY FLUID 7.076 UNITS (NOT ESTABLISHED); SOURCE, BODY FLUID pH PLEURAL
[2017-09-27 18:29] LABS: AMYLASE, BODY FLUID 49 U/L (NOT ESTABLISHED); CHOLESTEROL, BODY FLUID < 50 MG/DL (NOT ESTABLISHED); LDH, BODY FLUID 1089 U/L (NOT ESTABLISHED); SOURCE, BODY FLUID ALBUMIN PLEURAL; SOURCE, BODY FLUID AMYLASE PLEURAL; SOURCE, BODY FLUID CHOL PLEURAL; SOURCE, BODY FLUID GLUCOSE PLEURAL; SOURCE, BODY FLUID LDH PLEURAL; SOURCE, BODY FLUID TOT PROTEIN PLEURAL; SOURCE, BODY FLUID TRIG PLEURAL; TOTAL PROTEIN, BODY FLUID 4.1 G/DL (NOT ESTABLISHED); TRIGLYCERIDE, BODY FLUID 62 MG/DL (NOT ESTABLISHED)
[2017-09-27] MEDS: SENOKOT S TAB PO (20:39)
[2017-09-27 21:01] LABS: BEDSIDE GLUCOSE 217 MG/DL (83-110)
[2017-09-28] MEDS: hydrALAZINE INJ 20 MG/ML VIAL IV ×4 (01:10→18:17)
[2017-09-28] MEDS: CEFTAROLINE FOSAMIL 400 MG in D5W MINI-BAG PLUS 50 ML IV ×2 (01:10→14:19)
[2017-09-28] MEDS: traMADol 50 MG TAB PO (01:11)
[2017-09-28 05:06] LABS: HEMATOCRIT 30.9 % (42.0-52.0); HEMOGLOBIN 10.5 g/dl (14.0-18.0); MEAN CORPUSCULAR HEMOGLOBIN 28.1 pg (27.0-33.0); MEAN CORPUSCULAR VOLUME 82.6 fl (80.0-96.0); PLATELET COUNT, AUTOMATED 170 10^3/uL (150-450); RED BLOOD COUNT 3.74 10^6/uL (4.30-6.10); RED CELL DISTRIBUTION WIDTH 15.3 % (11.5-14.5); WHITE BLOOD COUNT 10.9 10^3/uL (4.0-10.0)
[2017-09-28 05:19] LABS: ANION GAP 14 MEQ/L (8-16); BLOOD UREA NITROGEN 35 MG/DL (7-18); CARBON DIOXIDE LEVEL 15 MEQ/L (21-32); CHLORIDE LEVEL 105 MEQ/L (98-107); CREATININE FOR GFR 1.65 MG/DL (0.70-1.30); GLOMERULAR FILTRATION RATE 43.6 (>42); GLUCOSE, FASTING 200 MG/DL (70-100); POTASSIUM SERUM 3.6 MEQ/L (3.5-5.1); SODIUM LEVEL 134 MEQ/L (136-145)
[2017-09-28] MEDS: LEVOTHYROXINE 112MCG TABLET (0.112MG) PO (05:56)
[2017-09-28] MEDS ORDERED: LEVALBUTEROL 1.25 MG/0.5 ML CONCENTRATE NEB NEB (07:30)
[2017-09-28] MEDS: LEVALBUTEROL 1.25 MG/0.5 ML CONCENTRATE NEB NEB ×3 (08:00→20:00)
[2017-09-28] MEDS: IPRATROPIUM 0.5MG/ALBUTEROL 2.5MG INH SOL UD 3ML (DUONEB)(J7620) NEB ×4 (08:00→23:03)
[2017-09-28] MEDS: HumaLOG INSULIN (NovoLOG) PER UNIT SC ×4 (08:17→21:00)
[2017-09-28] MEDS: FENOFIBRATE 145 MG TAB (TRICOR) PO (08:18)
[2017-09-28] MEDS: FOLIC ACID 1 MG TAB PO (08:18)
[2017-09-28] MEDS: CYANOCOBALAMIN 500 MCG TAB PO (08:18)
[2017-09-28] MEDS: ASPIRIN 325 MG TAB PO (08:18)
[2017-09-28] MEDS: PERCOCET 5MG/325MG TAB PO ×2 (08:18→21:19)
[2017-09-28] MEDS: FERROUS SULFATE 325MG TAB PO (08:19)
[2017-09-28] MEDS: amLODIPine 5 MG TAB PO (08:19)
[2017-09-28] MEDS: ATORVASTATIN 20 MG TAB PO (08:19)
[2017-09-28] MEDS: DOCUSATE SODIUM 100 MG CAP PO ×2 (08:20→21:20)
[2017-09-28] MEDS: OMEGA-3 1050MG CAPSULE PO (08:20)
[2017-09-28] MEDS: SENOKOT S TAB PO ×2 (08:20→21:18)
[2017-09-28] MEDS: PANTOPRAZOLE 40MG TAB (PROTONIX) PO (08:20)
[2017-09-28] MEDS: METOPROLOL TARTRATE 100 MG TAB PO (08:20)
[2017-09-28 11:39] LABS: BEDSIDE GLUCOSE 244 MG/DL (83-110)
[2017-09-28] MEDS: NS 1,000 ML IV (12:44)
[2017-09-28 16:48] LABS: BEDSIDE GLUCOSE 166 MG/DL (83-110)
[2017-09-28] MEDS: cloNIDine 0.1 MG TAB PO (21:18)
[2017-09-29] MEDS: NS 1,000 ML IV ×2 (00:33→09:30)
[2017-09-29 00:34] LABS: BEDSIDE GLUCOSE 250 MG/DL (83-110)
[2017-09-29] MEDS: hydrALAZINE INJ 20 MG/ML VIAL IV ×4 (00:48→18:27)
[2017-09-29] MEDS: LEVALBUTEROL 1.25 MG/0.5 ML CONCENTRATE NEB NEB ×4 (02:00→20:00)
[2017-09-29] MEDS: CEFTAROLINE FOSAMIL 400 MG in D5W MINI-BAG PLUS 50 ML IV ×2 (02:12→13:59)
[2017-09-29 05:48] LABS: HEMATOCRIT 29.9 % (42.0-52.0); MEAN CORPUSCULAR HEMOGLOBIN 28.1 pg (27.0-33.0); MEAN CORPUSCULAR HGB CONC 33.4 g/dl (32.0-36.5); PLATELET COUNT, AUTOMATED 147 10^3/uL (150-450); RED BLOOD COUNT 3.56 10^6/uL (4.30-6.10); RED CELL DISTRIBUTION WIDTH 15.1 % (11.5-14.5); WHITE BLOOD COUNT 8.1 10^3/uL (4.0-10.0)
[2017-09-29 06:00] LABS: ANION GAP 10 MEQ/L (8-16); BLOOD UREA NITROGEN 35 MG/DL (7-18); CALCIUM LEVEL 8.1 MG/DL (8.8-10.2); CARBON DIOXIDE LEVEL 20 MEQ/L (21-32); CHLORIDE LEVEL 107 MEQ/L (98-107); CREATININE FOR GFR 1.96 MG/DL (0.70-1.30); GLOMERULAR FILTRATION RATE 35.8 (>42); GLUCOSE, FASTING 178 MG/DL (70-100); POTASSIUM SERUM 3.4 MEQ/L (3.5-5.1); SODIUM LEVEL 137 MEQ/L (136-145)
[2017-09-29] MEDS: LEVOTHYROXINE 112MCG TABLET (0.112MG) PO (06:28)
[2017-09-29] MEDS: PERCOCET 5MG/325MG TAB PO ×2 (06:32→20:18)
[2017-09-29] MEDS: HumaLOG INSULIN (NovoLOG) PER UNIT SC ×4 (07:30→20:32)
[2017-09-29] MEDS: IPRATROPIUM 0.5MG/ALBUTEROL 2.5MG INH SOL UD 3ML (DUONEB)(J7620) NEB ×3 (08:00→22:15)
[2017-09-29] MEDS: amLODIPine 5 MG TAB PO ×2 (10:25→14:01)
[2017-09-29] MEDS: METOPROLOL TARTRATE 100 MG TAB PO (10:26)
[2017-09-29] MEDS: POTASSIUM CHLORIDE 10 MEQ SR TABLET PO (10:26)
[2017-09-29] MEDS ORDERED: ALTEPLASE 2 MG/2 ML VIAL (J2997 PER 1MG) XX (10:45)
[2017-09-29] MEDS ORDERED: CETACAINE SPRAY 5GM As Ordered (11:51)
[2017-09-29] MEDS ORDERED: MIDAZOLAM INJ 2 MG/2 ML VIAL (J2250) As Ordered ×3 (11:52)
[2017-09-29 13:50] LABS: BEDSIDE GLUCOSE 171 MG/DL (83-110)
[2017-09-29] MEDS: ASPIRIN 325 MG TAB PO (14:01)
[2017-09-29] MEDS: ATORVASTATIN 20 MG TAB PO (14:02)
[2017-09-29] MEDS: DOCUSATE SODIUM 100 MG CAP PO ×2 (14:20→20:18)
[2017-09-29] MEDS: FENOFIBRATE 145 MG TAB (TRICOR) PO (14:21)
[2017-09-29] MEDS: SENOKOT S TAB PO ×2 (14:22→20:17)
[2017-09-29] MEDS: FOLIC ACID 1 MG TAB PO (14:22)
[2017-09-29] MEDS: CYANOCOBALAMIN 500 MCG TAB PO (14:22)
[2017-09-29] MEDS: FERROUS SULFATE 325MG TAB PO (14:22)
[2017-09-29] MEDS: PANTOPRAZOLE 40MG TAB (PROTONIX) PO (14:26)
[2017-09-29] MEDS: OMEGA-3 1050MG CAPSULE PO (14:26)
[2017-09-29 17:58] LABS: BEDSIDE GLUCOSE 299 MG/DL (83-110)
[2017-09-30] MEDS: hydrALAZINE INJ 20 MG/ML VIAL IV ×3 (01:05→14:03)
[2017-09-30] MEDS: CEFTAROLINE FOSAMIL 400 MG in D5W MINI-BAG PLUS 50 ML IV (01:05)
[2017-09-30] MEDS: PERCOCET 5MG/325MG TAB PO ×2 (03:49→20:41)
[2017-09-30 05:42] LABS: HEMOGLOBIN 9.6 g/dl (14.0-18.0); MEAN CORPUSCULAR HEMOGLOBIN 28.2 pg (27.0-33.0); MEAN CORPUSCULAR HGB CONC 33.1 g/dl (32.0-36.5); PLATELET COUNT, AUTOMATED 158 10^3/uL (150-450); RED BLOOD COUNT 3.41 10^6/uL (4.30-6.10); RED CELL DISTRIBUTION WIDTH 15.2 % (11.5-14.5); WHITE BLOOD COUNT 9.3 10^3/uL (4.0-10.0)
[2017-09-30 06:00] LABS: ANION GAP 10 MEQ/L (8-16); BLOOD UREA NITROGEN 36 MG/DL (7-18); CALCIUM LEVEL 7.8 MG/DL (8.8-10.2); CARBON DIOXIDE LEVEL 19 MEQ/L (21-32); CHLORIDE LEVEL 111 MEQ/L (98-107); GLOMERULAR FILTRATION RATE 31.3 (>42); GLUCOSE, FASTING 183 MG/DL (70-100); MAGNESIUM LEVEL 2.1 MG/DL (1.8-2.4); POTASSIUM SERUM 3.6 MEQ/L (3.5-5.1); SODIUM LEVEL 140 MEQ/L (136-145)
[2017-09-30] MEDS: LEVOTHYROXINE 112MCG TABLET (0.112MG) PO (06:41)
[2017-09-30 07:23] LABS: BEDSIDE GLUCOSE 240 MG/DL (83-110)
[2017-09-30] MEDS: LEVALBUTEROL 1.25 MG/0.5 ML CONCENTRATE NEB NEB ×5 (08:00→20:32)
[2017-09-30] MEDS: IPRATROPIUM 0.5MG/ALBUTEROL 2.5MG INH SOL UD 3ML (DUONEB)(J7620) NEB ×4 (08:00→20:32)
[2017-09-30] MEDS: HumaLOG INSULIN (NovoLOG) PER UNIT SC ×4 (08:56→20:41)
[2017-09-30] MEDS: FERROUS SULFATE 325MG TAB PO (09:20)
[2017-09-30] MEDS: CYANOCOBALAMIN 500 MCG TAB PO (09:20)
[2017-09-30] MEDS: ASPIRIN 325 MG TAB PO (09:20)
[2017-09-30] MEDS: METOPROLOL TARTRATE 100 MG TAB PO (09:21)
[2017-09-30] MEDS: FENOFIBRATE 145 MG TAB (TRICOR) PO (09:21)
[2017-09-30] MEDS: FOLIC ACID 1 MG TAB PO (09:21)
[2017-09-30] MEDS: ATORVASTATIN 20 MG TAB PO (09:21)
[2017-09-30] MEDS: OMEGA-3 1050MG CAPSULE PO (09:22)
[2017-09-30] MEDS: PANTOPRAZOLE 40MG TAB (PROTONIX) PO (09:22)
[2017-09-30] MEDS: DOCUSATE SODIUM 100 MG CAP PO ×2 (09:22→20:40)
[2017-09-30] MEDS: SENOKOT S TAB PO ×2 (09:22→20:40)
[2017-09-30] MEDS: amLODIPine 5 MG TAB PO (12:07)
[2017-09-30 12:10] LABS: BEDSIDE GLUCOSE 271 MG/DL (83-110)
[2017-09-30] MEDS ORDERED: CEFAZOLIN SOD 2 GM in APPROPRIATE DILUENT 1 EA IV (14:00)
[2017-09-30] MEDS: ALTEPLASE 2 MG/2 ML VIAL (J2997 PER 1MG) XX (15:19)
[2017-09-30 17:15] LABS: BEDSIDE GLUCOSE 216 MG/DL (83-110)
[2017-09-30 21:34] LABS: BEDSIDE GLUCOSE 180 MG/DL (83-110)
[2017-10-01 05:32] LABS: HEMATOCRIT 28.9 % (42.0-52.0); HEMOGLOBIN 9.6 g/dl (14.0-18.0); MEAN CORPUSCULAR HEMOGLOBIN 28.4 pg (27.0-33.0); MEAN CORPUSCULAR HGB CONC 33.2 g/dl (32.0-36.5); MEAN CORPUSCULAR VOLUME 85.5 fl (80.0-96.0); PLATELET COUNT, AUTOMATED 139 10^3/uL (150-450); RED BLOOD COUNT 3.38 10^6/uL (4.30-6.10); RED CELL DISTRIBUTION WIDTH 15.4 % (11.5-14.5); WHITE BLOOD COUNT 7.7 10^3/uL (4.0-10.0)
[2017-10-01 05:49] LABS: ANION GAP 9 MEQ/L (8-16); BLOOD UREA NITROGEN 34 MG/DL (7-18); CALCIUM LEVEL 8.2 MG/DL (8.8-10.2); CARBON DIOXIDE LEVEL 20 MEQ/L (21-32); CHLORIDE LEVEL 111 MEQ/L (98-107); CREATININE FOR GFR 2.35 MG/DL (0.70-1.30); GLUCOSE, FASTING 142 MG/DL (70-100); MAGNESIUM LEVEL 2.2 MG/DL (1.8-2.4); POTASSIUM SERUM 3.7 MEQ/L (3.5-5.1); SODIUM LEVEL 140 MEQ/L (136-145)
[2017-10-01] MEDS: LEVOTHYROXINE 112MCG TABLET (0.112MG) PO (06:06)
[2017-10-01] MEDS: METOPROLOL TARTRATE 100 MG TAB PO (08:57)
[2017-10-01] MEDS: HumaLOG INSULIN (NovoLOG) PER UNIT SC ×4 (08:57→21:00)
[2017-10-01] MEDS: OMEGA-3 1050MG CAPSULE PO (08:57)
[2017-10-01] MEDS: FENOFIBRATE 145 MG TAB (TRICOR) PO (08:57)
[2017-10-01] MEDS: FOLIC ACID 1 MG TAB PO (08:57)
[2017-10-01] MEDS: FERROUS SULFATE 325MG TAB PO (08:57)
[2017-10-01] MEDS: ASPIRIN 325 MG TAB PO (08:57)
[2017-10-01] MEDS: DOCUSATE SODIUM 100 MG CAP PO ×2 (08:58→21:21)
[2017-10-01] MEDS: SENOKOT S TAB PO ×2 (08:58→21:00)
[2017-10-01] MEDS: PANTOPRAZOLE 40MG TAB (PROTONIX) PO (08:58)
[2017-10-01] MEDS: amLODIPine 5 MG TAB PO (08:58)
[2017-10-01] MEDS: ATORVASTATIN 20 MG TAB PO (08:58)
[2017-10-01] MEDS: CYANOCOBALAMIN 500 MCG TAB PO (08:58)
[2017-10-01 12:27] LABS: BEDSIDE GLUCOSE 195 MG/DL (83-110)
[2017-10-01] MEDS: LEVALBUTEROL 1.25 MG/0.5 ML CONCENTRATE NEB NEB ×2 (14:00→20:00)
[2017-10-01] MEDS: IPRATROPIUM 0.5MG/ALBUTEROL 2.5MG INH SOL UD 3ML (DUONEB)(J7620) NEB ×2 (15:53→22:27)
[2017-10-01 17:45] LABS: BEDSIDE GLUCOSE 201 MG/DL (83-110)
[2017-10-01] MEDS: LEVEMIR (INSULIN DETEMIR) 1 UNITS/0.01ML SC (17:53)
[2017-10-01 21:31] LABS: BEDSIDE GLUCOSE 154 MG/DL (83-110)
[2017-10-02] MEDS: LEVALBUTEROL 1.25 MG/0.5 ML CONCENTRATE NEB NEB ×4 (02:00→20:00)
[2017-10-02] MEDS: LEVOTHYROXINE 112MCG TABLET (0.112MG) PO ×2 (05:34→07:41)
[2017-10-02 05:47] LABS: HEMATOCRIT 29.8 % (42.0-52.0); HEMOGLOBIN 9.8 g/dl (14.0-18.0); MEAN CORPUSCULAR HEMOGLOBIN 27.8 pg (27.0-33.0); MEAN CORPUSCULAR HGB CONC 32.9 g/dl (32.0-36.5); MEAN CORPUSCULAR VOLUME 84.4 fl (80.0-96.0); PLATELET COUNT, AUTOMATED 145 10^3/uL (150-450); RED BLOOD COUNT 3.53 10^6/uL (4.30-6.10); RED CELL DISTRIBUTION WIDTH 15.2 % (11.5-14.5); WHITE BLOOD COUNT 6.8 10^3/uL (4.0-10.0)
[2017-10-02 06:49] LABS: ANION GAP 9 MEQ/L (8-16); BLOOD UREA NITROGEN 30 MG/DL (7-18); CARBON DIOXIDE LEVEL 20 MEQ/L (21-32); CHLORIDE LEVEL 112 MEQ/L (98-107); CREATININE FOR GFR 2.11 MG/DL (0.70-1.30); GLOMERULAR FILTRATION RATE 32.8 (>42); GLUCOSE, FASTING 118 MG/DL (70-100); POTASSIUM SERUM 3.6 MEQ/L (3.5-5.1); SODIUM LEVEL 141 MEQ/L (136-145)
[2017-10-02] MEDS: IPRATROPIUM 0.5MG/ALBUTEROL 2.5MG INH SOL UD 3ML (DUONEB)(J7620) NEB ×3 (07:29→23:45)
[2017-10-02] MEDS: HumaLOG INSULIN (NovoLOG) PER UNIT SC ×4 (07:38→21:38)
[2017-10-02] MEDS: LEVEMIR (INSULIN DETEMIR) 1 UNITS/0.01ML SC (07:38)
[2017-10-02] MEDS: FENOFIBRATE 145 MG TAB (TRICOR) PO (07:39)
[2017-10-02] MEDS: ATORVASTATIN 20 MG TAB PO (07:39)
[2017-10-02] MEDS: METOPROLOL TARTRATE 100 MG TAB PO (07:40)
[2017-10-02] MEDS: amLODIPine 5 MG TAB PO ×2 (07:40→10:58)
[2017-10-02] MEDS: ASPIRIN 325 MG TAB PO (07:40)
[2017-10-02] MEDS: PANTOPRAZOLE 40MG TAB (PROTONIX) PO (07:41)
[2017-10-02] MEDS: FOLIC ACID 1 MG TAB PO (07:41)
[2017-10-02] MEDS: CYANOCOBALAMIN 500 MCG TAB PO (07:43)
[2017-10-02] MEDS: PERCOCET 5MG/325MG TAB PO ×3 (07:43→21:30)
[2017-10-02] MEDS: DOCUSATE SODIUM 100 MG CAP PO ×2 (07:43→21:27)
[2017-10-02] MEDS: FERROUS SULFATE 325MG TAB PO (07:43)
[2017-10-02] MEDS: SENOKOT S TAB PO ×2 (07:43→21:27)
[2017-10-02] MEDS: OMEGA-3 1050MG CAPSULE PO (07:44)
[2017-10-02] MEDS: CALCIUM CARBONATE 500 MG CHEW U/D PO (07:49)
[2017-10-02] MEDS ORDERED: NICOTINE 14 MG/24 HR TRANSDERMAL TD (09:00)
[2017-10-02] MEDS: SODIUM BICARBONATE 325 MG TAB PO ×2 (12:54→21:27)
[2017-10-02 16:12] LABS: APPEARANCE, URINE CLEAR (CLEAR); BACTERIA, URINE AUTO NEGATIVE (NEGATIVE); BILIRUBIN, URINE AUTO NEGATIVE (NEGATIVE); BLOOD, URINE BLOOD NEGATIVE (NEGATIVE); COLOR, URINE YELLOW (YELLOW); GLUCOSE, URINE (UA) AUTO 3+ mg/dL (NEGATIVE); KETONE, URINE AUTO TRACE mg/dL (NEGATIVE); LEUKOCYTE ESTERASE, URINE AUTO NEGATIVE (NEGATIVE); NITRITE, URINE AUTO NEGATIVE (NEGATIVE); PROTEIN, URINE AUTO 2+ mg/dL (NEGATIVE); RBC, URINE AUTO 3 /HPF (0-3); SPECIFIC GRAVITY URINE AUTO 1.015 (1.002-1.035); SQUAMOUS EPITHELIAL CELL UR AU 0 /HPF (0-6); UROBILINOGEN, URINE AUTO 0.2 mg/dL (0.0-2.0); WBC, URINE AUTO 2 /HPF (0-3)
[2017-10-02] MEDS ORDERED: SODIUM CHLORIDE 0.9% INJ 10 ML SYR IV (16:15)
[2017-10-02] MEDS: SODIUM CHLORIDE 0.9% INJ 10 ML SYR IV (16:54)
[2017-10-02] MEDS: SODIUM BICARBONATE 100 MEQ in D5W 1,000 ML IV (21:52)
[2017-10-03] MEDS: LEVALBUTEROL 1.25 MG/0.5 ML CONCENTRATE NEB NEB ×3 (02:00→14:00)
[2017-10-03 03:18] LABS: BEDSIDE GLUCOSE 244 MG/DL (83-110)
[2017-10-03 03:18] LABS: BEDSIDE GLUCOSE 101 MG/DL (83-110)
[2017-10-03 03:18] LABS: BEDSIDE GLUCOSE 211 MG/DL (83-110)
[2017-10-03] MEDS: LEVOTHYROXINE 112MCG TABLET (0.112MG) PO ×2 (05:18→05:31)
[2017-10-03] MEDS: SODIUM CHLORIDE 0.9% INJ 10 ML SYR IV ×2 (05:19→18:12)
[2017-10-03 05:35] LABS: HEMATOCRIT 27.4 % (42.0-52.0); HEMOGLOBIN 9.1 g/dl (14.0-18.0); MEAN CORPUSCULAR HGB CONC 33.2 g/dl (32.0-36.5); MEAN CORPUSCULAR VOLUME 84.3 fl (80.0-96.0); PLATELET COUNT, AUTOMATED 149 10^3/uL (150-450); RED BLOOD COUNT 3.25 10^6/uL (4.30-6.10); RED CELL DISTRIBUTION WIDTH 14.8 % (11.5-14.5); WHITE BLOOD COUNT 6.7 10^3/uL (4.0-10.0)
[2017-10-03 05:53] LABS: ANION GAP 9 MEQ/L (8-16); BLOOD UREA NITROGEN 24 MG/DL (7-18); CALCIUM LEVEL 7.7 MG/DL (8.8-10.2); CARBON DIOXIDE LEVEL 24 MEQ/L (21-32); CHLORIDE LEVEL 108 MEQ/L (98-107); CREATININE FOR GFR 1.95 MG/DL (0.70-1.30); FERRITIN 646 NG/ML (26-388); GLUCOSE, FASTING 138 MG/DL (70-100); IRON (FE) 25 UG/DL (65-175); PERCENT SATURATION 15.8 % (19.7-50.0); POTASSIUM SERUM 3.7 MEQ/L (3.5-5.1); SODIUM LEVEL 141 MEQ/L (136-145); TOTAL IRON BINDING CAPACITY 158 UG/DL (250-450)
[2017-10-03] MEDS: HumaLOG INSULIN (NovoLOG) PER UNIT SC ×4 (07:30→21:00)
[2017-10-03] MEDS: IPRATROPIUM 0.5MG/ALBUTEROL 2.5MG INH SOL UD 3ML (DUONEB)(J7620) NEB ×2 (07:43→15:15)
[2017-10-03] MEDS ORDERED: E-Z-PAQUE 96% w/w SUSP 176GM BTL As Ordered (09:07)
[2017-10-03] MEDS ORDERED: E-Z-GAS II EFFERVESCENT PACKET (SODIUM BICARB./CITRIC ACID/SIMETHICONE) As Ordered (09:07)
[2017-10-03] MEDS ORDERED: E-Z-HD 98% w/w 340GM SUSP BTL As Ordered (09:07)
[2017-10-03] MEDS: ATORVASTATIN 20 MG TAB PO (11:11)
[2017-10-03] MEDS: DOCUSATE SODIUM 100 MG CAP PO ×2 (11:12→20:40)
[2017-10-03] MEDS: FERROUS SULFATE 325MG TAB PO (11:12)
[2017-10-03] MEDS: PANTOPRAZOLE 40MG TAB (PROTONIX) PO (11:12)
[2017-10-03] MEDS: OMEGA-3 1050MG CAPSULE PO (11:12)
[2017-10-03] MEDS: FOLIC ACID 1 MG TAB PO (11:13)
[2017-10-03] MEDS: METOPROLOL TARTRATE 100 MG TAB PO (11:13)
[2017-10-03] MEDS: SODIUM BICARBONATE 325 MG TAB PO ×2 (11:13→20:41)
[2017-10-03] MEDS: ASPIRIN 325 MG TAB PO (11:13)
[2017-10-03] MEDS: amLODIPine 10 MG TAB PO (11:14)
[2017-10-03] MEDS: SENOKOT S TAB PO ×2 (11:15→20:40)
[2017-10-03] MEDS: CYANOCOBALAMIN 500 MCG TAB PO (11:15)
[2017-10-03] MEDS: LEVEMIR (INSULIN DETEMIR) 1 UNITS/0.01ML SC (11:16)
[2017-10-03] MEDS: PERCOCET 5MG/325MG TAB PO (12:59)
[2017-10-03] MEDS: D5W/0.45% SODIUM CHLORIDE 1,000 ML IV ×2 (14:30→23:44)
[2017-10-03 21:27] LABS: BEDSIDE GLUCOSE 195 MG/DL (83-110)
[2017-10-03 21:27] LABS: BEDSIDE GLUCOSE 150 MG/DL (83-110)
[2017-10-03 21:27] LABS: BEDSIDE GLUCOSE 138 MG/DL (83-110)
[2017-10-04] MEDS: SODIUM CHLORIDE 0.9% INJ 10 ML SYR IV ×2 (04:00→17:37)
[2017-10-04] MEDS: PERCOCET 5MG/325MG TAB PO ×2 (05:57→20:25)
[2017-10-04] MEDS: LEVOTHYROXINE 112MCG TABLET (0.112MG) PO (05:57)
[2017-10-04 06:00] LABS: BASO % 0.2 % (0.0-1.0); EOS % 0.2 % (0.0-3.0); HEMATOCRIT 26.9 % (42.0-52.0); LYMPH # 0.8 10^3/uL (1.5-4.5); LYMPH % 11.8 % (24.0-44.0); MEAN CORPUSCULAR HGB CONC 33.5 g/dl (32.0-36.5); MEAN CORPUSCULAR VOLUME 83.5 fl (80.0-96.0); MONO % 15.4 % (0.0-5.0); NEUTROPHILS # 4.7 10^3/uL (1.8-7.7); NEUTROPHILS % 70.4 % (36.0-66.0); PLATELET COUNT, AUTOMATED 149 10^3/uL (150-450); RED BLOOD COUNT 3.22 10^6/uL (4.30-6.10); RED CELL DISTRIBUTION WIDTH 14.7 % (11.5-14.5); WHITE BLOOD COUNT 6.6 10^3/uL (4.0-10.0)
[2017-10-04 06:37] LABS: ANION GAP 9 MEQ/L (8-16); BLOOD UREA NITROGEN 19 MG/DL (7-18); CALCIUM LEVEL 7.3 MG/DL (8.8-10.2); CARBON DIOXIDE LEVEL 25 MEQ/L (21-32); CHLORIDE LEVEL 106 MEQ/L (98-107); CREATININE FOR GFR 1.76 MG/DL (0.70-1.30); GLOMERULAR FILTRATION RATE 40.5 (>42); GLUCOSE, FASTING 169 MG/DL (70-100); MAGNESIUM LEVEL 1.7 MG/DL (1.8-2.4); POTASSIUM SERUM 3.6 MEQ/L (3.5-5.1); SODIUM LEVEL 140 MEQ/L (136-145)
[2017-10-04] MEDS: MAG SULF 1GM/100ML (MAG RUN) 1 GM in APPROPRIATE DILUENT 1 EA IV ×2 (07:54→09:22)
[2017-10-04] MEDS: PANTOPRAZOLE 40MG TAB (PROTONIX) PO (07:54)
[2017-10-04] MEDS: OMEGA-3 1050MG CAPSULE PO (07:54)
[2017-10-04] MEDS: DOCUSATE SODIUM 100 MG CAP PO ×2 (07:54→20:24)
[2017-10-04] MEDS: ASPIRIN 325 MG TAB PO (07:54)
[2017-10-04] MEDS: METOPROLOL TARTRATE 100 MG TAB PO (07:55)
[2017-10-04] MEDS: CYANOCOBALAMIN 500 MCG TAB PO (07:55)
[2017-10-04] MEDS: SODIUM BICARBONATE 325 MG TAB PO (07:55)
[2017-10-04] MEDS: FOLIC ACID 1 MG TAB PO (07:55)
[2017-10-04] MEDS: ATORVASTATIN 20 MG TAB PO (07:55)
[2017-10-04] MEDS: HumaLOG INSULIN (NovoLOG) PER UNIT SC ×4 (07:56→21:00)
[2017-10-04] MEDS: SENOKOT S TAB PO ×2 (07:56→20:25)
[2017-10-04] MEDS: amLODIPine 10 MG TAB PO (07:56)
[2017-10-04] MEDS: **hydrALAZINE** 10 MG TAB PO ×3 (07:56→20:25)
[2017-10-04] MEDS ORDERED: IRON SUCROSE 100MG 5ML VIAL (J1756 PER 1MG) IV (09:00)
[2017-10-04] MEDS: CALCIUM GLUCONATE 1,000 MG in D5W MINI-BAG PLUS 100 ML IV (10:47)
[2017-10-04] MEDS: IRON SUCROSE 100 MG in NS 100 ML IV (12:42)
[2017-10-04] MEDS: D5W/0.45% SODIUM CHLORIDE 1,000 ML IV ×2 (12:46→23:36)
[2017-10-04] MEDS: EUCERIN 120GM CREAM TOP ×2 (14:25→21:00)
[2017-10-05 00:01] LABS: BEDSIDE GLUCOSE 214 MG/DL (83-110)
[2017-10-05 00:01] LABS: BEDSIDE GLUCOSE 180 MG/DL (83-110)
[2017-10-05 00:01] LABS: BEDSIDE GLUCOSE 208 MG/DL (83-110)
[2017-10-05] MEDS: LEVOTHYROXINE 112MCG TABLET (0.112MG) PO (05:20)
[2017-10-05] MEDS: SODIUM CHLORIDE 0.9% INJ 10 ML SYR IV ×2 (05:23→18:00)
[2017-10-05 05:34] LABS: BASO % 0.2 % (0.0-1.0); EOS % 0.2 % (0.0-3.0); HEMATOCRIT 26.3 % (42.0-52.0); HEMOGLOBIN 8.8 g/dl (14.0-18.0); IMMATURE GRANULOCYTE % 1.6 % (0-3.0); LYMPH # 0.6 10^3/uL (1.5-4.5); LYMPH % 11.2 % (24.0-44.0); MEAN CORPUSCULAR HEMOGLOBIN 27.4 pg (27.0-33.0); MEAN CORPUSCULAR HGB CONC 33.5 g/dl (32.0-36.5); MEAN CORPUSCULAR VOLUME 81.9 fl (80.0-96.0); MONO # 0.9 10^3/uL (0.0-0.8); MONO % 17.5 % (0.0-5.0); NEUTROPHILS # 3.5 10^3/uL (1.8-7.7); NEUTROPHILS % 69.3 % (36.0-66.0); PLATELET COUNT, AUTOMATED 152 10^3/uL (150-450); RED BLOOD COUNT 3.21 10^6/uL (4.30-6.10); RED CELL DISTRIBUTION WIDTH 14.7 % (11.5-14.5)
[2017-10-05 06:16] LABS: ANION GAP 8 MEQ/L (8-16); BLOOD UREA NITROGEN 15 MG/DL (7-18); CALCIUM LEVEL 7.2 MG/DL (8.8-10.2); CARBON DIOXIDE LEVEL 25 MEQ/L (21-32); CHLORIDE LEVEL 105 MEQ/L (98-107); CREATININE FOR GFR 1.61 MG/DL (0.70-1.30); GLOMERULAR FILTRATION RATE 44.9 (>42); GLUCOSE, FASTING 180 MG/DL (70-100); MAGNESIUM LEVEL 2.2 MG/DL (1.8-2.4); POTASSIUM SERUM 3.5 MEQ/L (3.5-5.1); SODIUM LEVEL 138 MEQ/L (136-145)
[2017-10-05] MEDS: CYANOCOBALAMIN 500 MCG TAB PO (08:15)
[2017-10-05] MEDS: ASPIRIN 325 MG TAB PO (08:15)
[2017-10-05] MEDS: amLODIPine 10 MG TAB PO (08:17)
[2017-10-05] MEDS: SENOKOT S TAB PO ×2 (08:17→21:04)
[2017-10-05] MEDS: METOPROLOL TARTRATE 100 MG TAB PO (08:17)
[2017-10-05] MEDS: **hydrALAZINE** 10 MG TAB PO ×3 (08:18→21:04)
[2017-10-05] MEDS: FOLIC ACID 1 MG TAB PO (08:19)
[2017-10-05] MEDS: OMEGA-3 1050MG CAPSULE PO (08:19)
[2017-10-05] MEDS: DOCUSATE SODIUM 100 MG CAP PO ×2 (08:19→21:03)
[2017-10-05] MEDS: PANTOPRAZOLE 40MG TAB (PROTONIX) PO (08:19)
[2017-10-05] MEDS: ATORVASTATIN 20 MG TAB PO (08:19)
[2017-10-05] MEDS: HumaLOG INSULIN (NovoLOG) PER UNIT SC ×4 (08:20→21:00)
[2017-10-05] MEDS: LEVEMIR (INSULIN DETEMIR) 1 UNITS/0.01ML SC (08:22)
[2017-10-05] MEDS: IRON SUCROSE 100 MG in NS 100 ML IV (08:49)
[2017-10-05] MEDS: EUCERIN 120GM CREAM TOP ×2 (09:00→21:04)
[2017-10-05] MEDS: D5W/0.45% SODIUM CHLORIDE 1,000 ML IV ×2 (12:00→18:22)
[2017-10-05] MEDS: NS 1,000 ML IV (14:00)
[2017-10-05] MEDS ORDERED: PROPOFOL 200 MG/20 ML VIAL As Ordered ×2 (14:01→14:26)
[2017-10-05] MEDS ORDERED: LIDOCAINE 2% INJ 100 MG/5 ML SDV (FOR ANES.) As Ordered (14:26)
[2017-10-05] MEDS ORDERED: LIDOCAINE 2% INJ 100 MG/5 ML SYRINGE As Ordered (14:26)
[2017-10-05] MEDS ORDERED: GLYCOPYRROLATE INJ 0.2 MG/ML 2 ML VIAL As Ordered (14:27)
[2017-10-05] MEDS: PERCOCET 5MG/325MG TAB PO (21:04)
[2017-10-06] MEDS: D5W/0.45% SODIUM CHLORIDE 1,000 ML IV (01:49)
[2017-10-06] MEDS: LEVOTHYROXINE 112MCG TABLET (0.112MG) PO (05:14)
[2017-10-06] MEDS: SODIUM CHLORIDE 0.9% INJ 10 ML SYR IV (05:14)
[2017-10-06 05:35] LABS: EOS % 0.2 % (0.0-3.0); HEMATOCRIT 25.9 % (42.0-52.0); HEMOGLOBIN 8.7 g/dl (14.0-18.0); IMMATURE GRANULOCYTE % 1.2 % (0-3.0); LYMPH # 0.6 10^3/uL (1.5-4.5); LYMPH % 14.9 % (24.0-44.0); MEAN CORPUSCULAR HEMOGLOBIN 27.7 pg (27.0-33.0); MEAN CORPUSCULAR HGB CONC 33.6 g/dl (32.0-36.5); MEAN CORPUSCULAR VOLUME 82.5 fl (80.0-96.0); MONO # 0.8 10^3/uL (0.0-0.8); MONO % 17.8 % (0.0-5.0); NEUTROPHILS # 2.8 10^3/uL (1.8-7.7); NEUTROPHILS % 65.9 % (36.0-66.0); PLATELET COUNT, AUTOMATED 154 10^3/uL (150-450); RED BLOOD COUNT 3.14 10^6/uL (4.30-6.10); RED CELL DISTRIBUTION WIDTH 14.8 % (11.5-14.5); WHITE BLOOD COUNT 4.2 10^3/uL (4.0-10.0)
[2017-10-06 05:51] LABS: ANION GAP 9 MEQ/L (8-16); BLOOD UREA NITROGEN 13 MG/DL (7-18); CALCIUM LEVEL 7.5 MG/DL (8.8-10.2); CARBON DIOXIDE LEVEL 24 MEQ/L (21-32); CHLORIDE LEVEL 104 MEQ/L (98-107); CREATININE FOR GFR 1.68 MG/DL (0.70-1.30); GLOMERULAR FILTRATION RATE 42.7 (>42); GLUCOSE, FASTING 149 MG/DL (70-100); MAGNESIUM LEVEL 1.9 MG/DL (1.8-2.4); POTASSIUM SERUM 3.3 MEQ/L (3.5-5.1); SODIUM LEVEL 137 MEQ/L (136-145)
[2017-10-06] MEDS: CYANOCOBALAMIN 500 MCG TAB PO (09:54)
[2017-10-06] MEDS: PANTOPRAZOLE 40MG TAB (PROTONIX) PO (09:54)
[2017-10-06] MEDS: METOPROLOL TARTRATE 100 MG TAB PO (09:54)
[2017-10-06] MEDS: amLODIPine 10 MG TAB PO (09:54)
[2017-10-06] MEDS: SENOKOT S TAB PO (09:54)
[2017-10-06] MEDS: ATORVASTATIN 20 MG TAB PO (09:54)
[2017-10-06] MEDS: **hydrALAZINE** 10 MG TAB PO (09:55)
[2017-10-06] MEDS: POTASSIUM CHLORIDE 10 MEQ SR TABLET PO (09:55)
[2017-10-06] MEDS: FOLIC ACID 1 MG TAB PO (09:55)
[2017-10-06] MEDS: OMEGA-3 1050MG CAPSULE PO (09:55)
[2017-10-06] MEDS: ASPIRIN 325 MG TAB PO (09:55)
[2017-10-06] MEDS: DOCUSATE SODIUM 100 MG CAP PO (09:56)
[2017-10-06] MEDS: HumaLOG INSULIN (NovoLOG) PER UNIT SC ×2 (09:56→12:43)
[2017-10-06] MEDS: EUCERIN 120GM CREAM TOP (09:57)
[2017-10-06] MEDS: IRON SUCROSE 100 MG in NS 100 ML IV (10:12)
[2017-10-06] MEDS: PERCOCET 5MG/325MG TAB PO (10:12)
[2017-10-06] MEDS: LEVEMIR (INSULIN DETEMIR) 1 UNITS/0.01ML SC (11:26)
[2017-10-06 11:29] LABS: BEDSIDE GLUCOSE 176 MG/DL (83-110)
[2017-10-06 11:29] LABS: BEDSIDE GLUCOSE 178 MG/DL (83-110)
[2017-10-06 11:29] LABS: BEDSIDE GLUCOSE 137 MG/DL (83-110)
[2017-10-08 22:00] LABS: BEDSIDE GLUCOSE 234 MG/DL (83-110)
== END 2017-10-06 14:30 | disposition home health service (06) | DRG 871 ==
LOC: M MS5PR 10-02 01:15 → M MSPAV 11:57 → M PCU 16:20
PROVIDERS: Hospitalist
PROC: B246ZZ4 Ultrasonography of Right and Left Heart, Transesophageal (ICD-10-PCS; 2017-09-29 12:00)
PROC: 0B9P30Z Drainage of Left Pleura with Drainage Device, Percutaneous Approach (ICD-10-PCS; principal; 2017-09-29 12:19)
PROC: 02HV33Z Insertion of Infusion Device into Superior Vena Cava, Percutaneous Approach (ICD-10-PCS; 2017-09-29 12:19)
PROC: 3E0L3GC Introduction of Other Therapeutic Substance into Pleural Cavity, Percutaneous Approach (ICD-10-PCS; 2017-09-29 12:19)
PROC: 0D758DZ Dilation of Esophagus with Intraluminal Device, Via Natural or Artificial Opening Endoscopic (ICD-10-PCS; 2017-09-29 12:19)
DX: A41.01 Sepsis due to Methicillin susceptible Staphylococcus aureus (principal); I33.0 Acute and subacute infective endocarditis; N17.9 Acute kidney failure, unspecified; E87.1 Hypo-osmolality and hyponatremia; J90 Pleural effusion, not elsewhere classified; M86.471 Chronic osteomyelitis with draining sinus, right ankle and foot; E87.2 Acidosis; R11.2 Nausea with vomiting, unspecified; R65.20 Severe sepsis without septic shock; E11.621 Type 2 diabetes mellitus with foot ulcer; E11.69 Type 2 diabetes mellitus with other specified complication; L97.513 Non-pressure chronic ulcer of other part of right foot with necrosis of muscle; E88.09 Other disorders of plasma-protein metabolism, not elsewhere classified; E78.00 Pure hypercholesterolemia, unspecified; E11.22 Type 2 diabetes mellitus with diabetic chronic kidney disease; N18.3 Chronic kidney disease, stage 3 (moderate); E03.9 Hypothyroidism, unspecified; M70.31 Other bursitis of elbow, right elbow; K20.9 Esophagitis, unspecified; I12.9 Hypertensive chronic kidney disease with stage 1 through stage 4 chronic kidney disease, or unspecified chronic kidney disease; D50.9 Iron deficiency anemia, unspecified; R13.10 Dysphagia, unspecified; K22.0 Achalasia of cardia; E83.42 Hypomagnesemia; I70.0 Atherosclerosis of aorta; Z95.3 Presence of xenogenic heart valve; Z95.1 Presence of aortocoronary bypass graft; Z89.411 Acquired absence of right great toe; Z89.421 Acquired absence of other right toe(s); Z91.040 Latex allergy status; Z88.1 Allergy status to other antibiotic agents; Z88.8 Allergy status to other drugs, medicaments and biological substances; Z87.891 Personal history of nicotine dependence; Z79.82 Long term (current) use of aspirin; Z79.899 Other long term (current) drug therapy; Z79.4 Long term (current) use of insulin; Z91.19 Patient's noncompliance with other medical treatment and regimen

== ENCOUNTER → 2017-10-11 | Outpatient (REF) | payer MEDICARE ==
[2017-10-11 18:19] LABS: ESTIMATED AVERAGE GLUCOSE 171 MG/DL (60-110); HEMOGLOBIN A1c 7.6 %
== END ==
LOC: M LAB REF 15:55
DX: E11.9 Type 2 diabetes mellitus without complications (principal); E03.9 Hypothyroidism, unspecified
CPT/HCPCS: 84443

== ENCOUNTER → 2017-10-11 | Outpatient (REF) | payer MEDICARE ==
[2017-10-11 17:12] LABS: BASO % 0.2 % (0.0-1.0); EOS % 0.2 % (0.0-3.0); HEMATOCRIT 27.3 % (42.0-52.0); HEMOGLOBIN 8.8 g/dl (13.5-17.5); IMMATURE GRANULOCYTE % 0.5 % (0-3.0); LYMPH # 0.7 10^3/uL (1.5-4.5); LYMPH % 15.8 % (24.0-44.0); MEAN CORPUSCULAR HEMOGLOBIN 27.3 pg (27.0-33.0); MEAN CORPUSCULAR HGB CONC 32.2 g/dl (32.0-36.5); MEAN CORPUSCULAR VOLUME 84.8 fl (80.0-96.0); MONO # 0.4 10^3/uL (0.0-0.8); MONO % 9.7 % (0.0-5.0); NEUTROPHILS % 73.6 % (36.0-66.0); PLATELET COUNT, AUTOMATED 258 10^3/uL (150-450); RED BLOOD COUNT 3.22 10^6/uL (4.30-6.10); RED CELL DISTRIBUTION WIDTH 15.4 % (11.5-14.5); WHITE BLOOD COUNT 4.1 10^3/uL (4.0-10.0)
[2017-10-11 17:38] LABS: ERYTHROCYTE SEDIMENTATION RATE 108 mm/hr (0-20)
[2017-10-11 18:11] LABS: ANION GAP 6 MEQ/L (8-16); BLOOD UREA NITROGEN 22 MG/DL (7-18); C REACTIVE PROTEIN QUANTITATIV 1.99 MG/DL (0.00-0.30); CALCIUM LEVEL 7.9 MG/DL (8.8-10.2); CARBON DIOXIDE LEVEL 25 MEQ/L (21-32); CHLORIDE LEVEL 107 MEQ/L (98-107); CREATININE FOR GFR 1.87 MG/DL (0.70-1.30); GLOMERULAR FILTRATION RATE 37.8 (>42); GLUCOSE, FASTING 219 MG/DL (70-100); POTASSIUM SERUM 4.4 MEQ/L (3.5-5.1); SODIUM LEVEL 138 MEQ/L (136-145)
== END ==
LOC: M LAB REF 15:57
DX: M86.9 Osteomyelitis, unspecified (principal); B95.61 Methicillin susceptible Staphylococcus aureus infection as the cause of diseases classified elsewhere
CPT/HCPCS: 80048

== ENCOUNTER → 2017-12-09 | Outpatient (REF) | payer MEDICARE ==
[2017-12-09 20:38] LABS: HEMATOCRIT 33.4 % (42.0-52.0); MEAN CORPUSCULAR HEMOGLOBIN 28.8 pg (27.0-33.0); MEAN CORPUSCULAR HGB CONC 32.9 g/dl (32.0-36.5); MEAN CORPUSCULAR VOLUME 87.4 fl (80.0-96.0); PLATELET COUNT, AUTOMATED 142 10^3/uL (150-450); RED BLOOD COUNT 3.82 10^6/uL (4.30-6.10); RED CELL DISTRIBUTION WIDTH 16.2 % (11.5-14.5); WHITE BLOOD COUNT 3.6 10^3/uL (4.0-10.0)
[2017-12-09 21:17] LABS: ANION GAP 7 MEQ/L (8-16); BLOOD UREA NITROGEN 48 MG/DL (7-18); C REACTIVE PROTEIN QUANTITATIV 0.66 MG/DL (0.00-0.30); CARBON DIOXIDE LEVEL 22 MEQ/L (21-32); CHLORIDE LEVEL 108 MEQ/L (98-107); CREATININE FOR GFR 2.54 MG/DL (0.70-1.30); ESTIMATED AVERAGE GLUCOSE 183 MG/DL (60-110); GLOMERULAR FILTRATION RATE 26.5 (>42); GLUCOSE, FASTING 212 MG/DL (70-100); SODIUM LEVEL 137 MEQ/L (136-145)
[2017-12-09 21:54] LABS: ERYTHROCYTE SEDIMENTATION RATE 70 mm/hr (0-20)
== END ==
LOC: M LAB REF 19:37
DX: E11.621 Type 2 diabetes mellitus with foot ulcer (principal)
CPT/HCPCS: 83036

== ENCOUNTER → 2017-12-13 | Outpatient (REF) | payer MEDICARE ==
[2017-12-13 18:47] LABS: COMPLEMENT C3 115 MG/DL (90-180)
[2017-12-13 18:47] LABS: COMPLEMENT C4 22.4 MG/DL (10-40); TOTAL PROTEIN 7.6 GM/DL (6.4-8.2)
[2017-12-13 19:38] LABS: URINE TOTAL PROTEIN 427.4 MG/DL (0-12)
[2017-12-14 14:45] LABS: ALBUMIN 3.94 GM/DL (3.29-5.55); ALBUMIN % 51.8 % (55.8-66.1); ALPHA-1-GLOBULIN % 5.5 % (2.9-4.9); ALPHA-1-GLOBULINS 0.42 GM/DL (0.17-0.41); ALPHA-2-GLOBULINS 0.84 GM/DL (0.42-0.99); ALPHA-2-GLOBULINS % 11.1 % (7.1-11.8); BETA-1-GLOBULINS 0.43 GM/DL (0.28-0.60); BETA-1-GLOBULINS % 5.7 % (4.7-7.2); BETA-2-GLOBULINS 0.39 GM/DL (0.19-0.55); BETA-2-GLOBULINS % 5.1 % (3.2-6.5); GAMMA GLOBULIN % 20.8 % (11.1-18.8); GAMMA GLOBULINS 1.58 GM/DL (0.65-1.58)
[2017-12-16 13:43] LABS: UPEP INTERPRETATION NO M-SPIKE NOTED; URINE VOLUME RANDOM ML
[2017-12-17 00:07] LABS: ANCA-ATYPICAL <1:20 titer (Neg:<1:20); ANTI DOUBLE STRAND-DNA AB 3 IU/mL (0-9); ANTINUCLEAR ANTIBODIES DIRECT Negative (Negative); CYTOPLASMIC NEUTROP AB ANCA-C <1:20 titer (Neg:<1:20); PERINUCLEAR AB ANCA-P <1:20 titer (Neg:<1:20)
== END ==
LOC: M LAB REF 17:13
DX: R80.9 Proteinuria, unspecified (principal)
CPT/HCPCS: 84165

== ENCOUNTER → 2017-12-27 | Outpatient (REF) | payer MEDICARE ==
[2017-12-27 18:39] LABS: CREATININE, URINE 77.1 MG/DL
[2017-12-27 20:03] LABS: TOTAL VOLUME, URINE 1825 ML
== END ==
LOC: M LAB REF 17:31
DX: R80.9 Proteinuria, unspecified (principal)
CPT/HCPCS: 81050

== ENCOUNTER → 2017-12-29 | Outpatient (CLI) | payer MEDICARE | LOC: M RAD 12:32 | DX: E11.621 Type 2 diabetes mellitus with foot ulcer (principal); L97.412 Non-pressure chronic ulcer of right heel and midfoot with fat layer exposed | CPT/HCPCS: 73718 ==

== ENCOUNTER → 2018-02-10 | Outpatient (CLI) | payer MEDICARE | LOC: M RAD 12:34 | DX: N18.4 Chronic kidney disease, stage 4 (severe) (principal); N17.9 Acute kidney failure, unspecified; I15.0 Renovascular hypertension | CPT/HCPCS: 76775 ==

== ENCOUNTER → 2018-02-15 | Outpatient (REF) | payer MEDICARE | LOC: M LAB REF 16:58 | DX: N39.0 Urinary tract infection, site not specified (principal) | CPT/HCPCS: 87186 ==

== ENCOUNTER → 2018-04-22 | Outpatient (REF) | payer MEDICARE ==
[2018-04-23 18:53] LABS: CRYOGLOBULINS NEGATIVE (NEGATIVE)
[2018-04-25 10:33] LABS: HEPATITIS B CORE ANTIBODY IGM NEGATIVE (NEGATIVE); HEPATITIS B SURFACE ANTIBODY POSITIVE (POSITIVE); HEPATITIS B SURFACE ANTIGEN NEGATIVE (NEGATIVE)
== END ==
LOC: M LAB REF 16:58
DX: N18.4 Chronic kidney disease, stage 4 (severe) (principal); I15.0 Renovascular hypertension; R80.8 Other proteinuria
CPT/HCPCS: 82595

== ENCOUNTER → 2018-05-13 | Outpatient (REF) | payer MEDICARE ==
[2018-05-13 16:25] LABS: INR 0.98; PROTHROMBIN TIME 13.1 SECONDS (12.1-14.4)
== END ==
LOC: M LABDRAWP 14:18
DX: Z01.812 Encounter for preprocedural laboratory examination (principal); R80.9 Proteinuria, unspecified; N18.4 Chronic kidney disease, stage 4 (severe)
CPT/HCPCS: 85610

== ENCOUNTER → 2018-05-23 | Outpatient (CLI) | payer MEDICARE ==
[~2018-05-23] MED LIST changes: +**hydrALAZINE HCL** 25 MG TAB PO; -ACETAMINOPHEN TAB 650MG DOSE (2X325MG) PO; -CEFTAROLINE FOSAMIL 600 MG in D5W MINI-BAG PLUS 50 ML IV; -DEXTROSE 50% 50 ML SYRINGE IV; -GLUCAGON FOR INJ 1 MG VIAL (J1610) SC; -GLUCOSE 4 GM CHEW TABLET PO; -IPRATROPIUM 0.5MG/ALBUTEROL 2.5MG INH SOL UD 3ML (DUONEB)(J7620) NEB; +LIDOCAINE 1% MDV 20ML VIAL As Ordered; +METOPROLOL TART 50 MG TAB PO; +amLODIPine 10 MG TAB PO
== END ==
LOC: M RADPRO 11:08
DX: N18.4 Chronic kidney disease, stage 4 (severe) (principal); R80.9 Proteinuria, unspecified; E11.22 Type 2 diabetes mellitus with diabetic chronic kidney disease; Z91.041 Radiographic dye allergy status; Z88.8 Allergy status to other drugs, medicaments and biological substances; Z79.899 Other long term (current) drug therapy; Z53.8 Procedure and treatment not carried out for other reasons

== ENCOUNTER → 2018-06-13 | Outpatient (CLI) | payer MEDICARE ==
[~2018-06-13] MED LIST changes: -**hydrALAZINE HCL** 25 MG TAB PO; +**hydrALAZINE** 50 MG TAB PO; +ALPRAZolam 0.5 MG TAB PO; -METOPROLOL TART 50 MG TAB PO; -amLODIPine 10 MG TAB PO; +hydrALAZINE INJ 20 MG/ML VIAL IV
== END ==
LOC: M RADPRO 10:37
DX: N26.9 Renal sclerosis, unspecified (principal); N18.4 Chronic kidney disease, stage 4 (severe); R80.9 Proteinuria, unspecified; E11.22 Type 2 diabetes mellitus with diabetic chronic kidney disease; Z88.8 Allergy status to other drugs, medicaments and biological substances; Z79.890 Hormone replacement therapy; Z79.899 Other long term (current) drug therapy; Z79.4 Long term (current) use of insulin; Z79.82 Long term (current) use of aspirin
CPT/HCPCS: 50200

== ENCOUNTER → 2018-06-21 | Outpatient (REF) | payer MEDICARE ==
[2018-06-21 19:25] LABS: FERRITIN 216 NG/ML (26-388); FOLATE 20.2 NG/ML; IRON (FE) 57 UG/DL (65-175); PERCENT SATURATION 22.7 % (19.7-50.0); TOTAL IRON BINDING CAPACITY 251 UG/DL (250-450); VITAMIN B12 LEVEL 726 PG/ML
== END ==
LOC: M LAB REF 17:33
DX: D64.9 Anemia, unspecified (principal)
CPT/HCPCS: 82746

== ENCOUNTER → 2018-06-28 | Outpatient (REF) | payer MEDICARE | LOC: M SFHCPLAZ 14:12 | DX: E78.5 Hyperlipidemia, unspecified (principal); E11.9 Type 2 diabetes mellitus without complications; Z53.8 Procedure and treatment not carried out for other reasons ==

== ENCOUNTER → 2018-06-29 | Outpatient (REF) | payer MEDICARE ==
[~2018-06-29] MED LIST changes: -**hydrALAZINE** 50 MG TAB PO; -ALPRAZolam 0.5 MG TAB PO; +AMLO10TA4 PO; +ASPI-222 PO; +ATOR40TA75 PO; +B-D1MIS3 XX; +CLEO150C PO; +DOXY100T PO; +FENO145T13 PO; +FOLI1TAB5 PO; +HYDR-3910 PO; +INSUHUMDS SC; +IRON65TA PO; +LEVO100T5 PO; -LIDOCAINE 1% MDV 20ML VIAL As Ordered; +LISI-538 PO; +LOPR1TAB7 PO; +LOVA1CAP17 PO; +NORV5TAB PO; +OMEG100011 PO; +TOUJ1.2I SC; +TRAM50TA2 PO; +VITA500T53 PO; -hydrALAZINE INJ 20 MG/ML VIAL IV
[2018-06-29 12:26] LABS: CHOLESTEROL RISK RATIO 4.205 (<5)
[2018-06-29 13:27] LABS: MAU/CREAT RATIO 3058.8 MCG/MG (0.0-30.0)
[2018-06-29 14:00] LABS: HEMOGLOBIN A1c 7.4 %
== END ==
LOC: M SFHCPLAZ 07:45
PROVIDERS: ATTEND Family Medicine
DX: E78.5 Hyperlipidemia, unspecified (principal); E11.9 Type 2 diabetes mellitus without complications

== ENCOUNTER → 2019-01-02 | Outpatient (REF) | payer MEDICARE ==
[~2019-01-02] MED LIST changes: +ACET1TAB55 PO; -AMLO10TA4 PO; +AMLO10TA5 PO; +ASPI81TA85 PO; +ATEN100T PO; +CLOP75TA2 PO; +FERR325T3 PO; +FOLI1TAB11 PO; -FOLI1TAB5 PO; +GLUC1KIT IM; +LEVO112T2 PO; +LISI40TA PO; +OMEGCAP4 PO; +VITA500T17 PO; +VITA500T40 PO; -VITA500T53 PO
[2019-01-02 17:13] LABS: CHOLESTEROL RISK RATIO 5.153 (<5); THYROID STIMULATING HORMONE 7.55 uIU/ML (0.358-3.740)
== END ==
LOC: M SFHCPLAZ 15:07
PROVIDERS: ATTEND Family Medicine
DX: E03.9 Hypothyroidism, unspecified (principal); E78.5 Hyperlipidemia, unspecified
CPT/HCPCS: 36415; 80061; 84443; G0463

== ENCOUNTER 2019-01-24 10:55 | Inpatient (IN) | payer MEDICARE ==
[~2019-01-24] VITALS: Ht 185.4 cm; Wt 97.0 kg
[~2019-01-24 10:55] MED LIST changes: -ACET1TAB55 PO; -ASPI81TA85 PO; -ATEN100T PO; -CLOP75TA2 PO; -FERR325T3 PO; -GLUC1KIT IM; -LEVO112T2 PO; -LISI40TA PO; -OMEGCAP4 PO; -VITA500T40 PO
[2019-01-24] MEDS ORDERED: DEXTROSE 50% 50 ML SYRINGE IV PRN (12:15)
[2019-01-24] MEDS ORDERED: GLUCAGON FOR INJ 1 MG VIAL (J1610) SC PRN (12:15)
[2019-01-24] MEDS ORDERED: GLUCOSE 4 GM CHEW TABLET PO PRN (12:15)
[2019-01-24] MEDS ORDERED: BISACODYL 10 MG SUPP PR PRN (12:15)
[2019-01-24] MEDS ORDERED: MOM 30ML SUSPENSION UDC PO PRN (12:15)
[2019-01-24] MEDS ORDERED: ACETAMINOPHEN TAB 650MG DOSE (2X325MG) PO PRN (12:15)
--- NOTE | 2019-01-24 12:49 | HPEPDOC ---
Healthcare Architect Note DATE OF ADMISSION: 01/24/19 SOURCE OF ADMISSION INFORMATION: [facility] records and patient CHIEF COMPLAINT: stroke HISTORY OF PRESENT ILLNESS: 73 right handed man with pmh HTN, DM2, CAD with OH s/p CABG and aortic valve replacement in 2008, CKD stage 4, carotid artery disease presented to [facility] on 01/19/19 complaining of onset of slurred speech, left facial droop, and left sided weakness within the TPA window. He was found to be hypertensive with sBP in the 200s, CTH negative for acute intracranial abnormalities. He was given tPA and admitted to the neurology service on telemetry. MR brain on January 22, 2019 showed, acute stroke within the right hernandez radiate and putamen. He later was switched to dual-antiplatelet therapy for a total of 3 weeks to be switched to just Aspirin on 02/11/19. ECHO on 01/20/19 showed, overall LV systolic function is in the low normal rangeno regional wall motion abnormalitiesno obvious PFO or shunt on bubble study. CTA head and neck showed chronic occlusion of the left vertebral artery, 50% stenosis of the right ICA. He was placed on a modified diet due to his dysphagia, but was upgraded from puree to dental soft prior to discharge. He had impairments in mobility and ADLs well below his prior level of function and deemed medically appropriate for discharge to ARU on 01/24/19. REVIEW OF SYSTEMS: The following is a completed review of systems and has been reviewed. Review of systems otherwise unremarkable. PAIN: Patient self reports no pain EYES: No recent vision changes EARS, NOSE, & THROAT: +dysphagia CARDIOVASCULAR: Denies chest pain or palpitations PULMONARY: Denies shortness of breath GASTROINTESTINAL: Denies constipation/diarrhea GENITOURINARY: denies dysuria MUSCULOSKELETAL: left UE weakenss NEUROLOGICAL: left UE paresis HEMATOLOGICAL: negative SKIN: right plantar foot ulcer PSYCHIATRIC: Unremarkable All other review of systems found to be negative. 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, no ETOH, smoking, or illicit drugs, Allergies: please see below DIET: mechanical soft, thins PHYSICAL EXAMINATION: VITAL SIGNS: Please see below. GENERAL: Pleasant and cooperative. No acute distress. +left sided facial droop HEENT: PERRL. Extraocular movements intact. Clear conjunctiva CARDIOVASCULAR: Regular rate and rhythm. No murmurs, rubs, or gallops LUNGS: Clear to auscultation bilaterally. No wheezes. No rhonchi ABDOMEN: Soft, nontender, nondistended. Positive bowel sounds. Normal active bowel sounds NEUROLOGICAL: Alert and oriented times three. Cranial nerves II through XII grossly intact. Sensation grossly intact, no neglect appreciated (-) babinkski bilat, hyper-reflexia LUE 1/4 MAS elbow flexion tone EXTREMITIES: 5\5 strength right upper extremities. 2/5 strengthen right elbow flexofrs, extensors, and fiberglass roller, 1/5 wrist extension 5\5 strength right lower extremity. 4-/5 strength in left lower extremity. SKIN: right plantar hyperkeratotic lesion IMAGING:Imaging documentation personally reviewed by record FUNCTIONAL STATUS: Premorbid: Independent with all activities of daily life as well as mobility On Admission:A lot of help with bed mobility, toileting, dressing, and a little assistance with eating, and a lot of help for ambulating with a RW. GOALS: Mod-I with cane for ambulation community distances, uneven terrain, stai rs, Mod-I bathing, dressing, toileting, medical optimization, assess for DMEs, caregiver training. ASSESSMENT:73-year-old M with past medical history of CABG and DM who presents status post stroke. PLAN: 1. Rehab: PT- advance gait and improve dynamic balance OT- strengthen LUE and stretch to prevent shoulder, elbow, wrist contractures PROFESSOR OF PRACTICE: advance diet and assess for cognitive deficits 2. Neuro: s/p right hernandez-radiata and putamen stroke with left sided hemiparesis with gait impairment, c/u ASa and Plavix for 3 weeks, then starting 02/11/19 continue solely on ASA -c/u Tricor and BP management for secondary stroke prevention -Fluoxetine for motor recovery 3. CArdio: [facility] Aortic valve repair and CABG, most recent ECHO 09/2017 with normal LVEF- medicine consulted to assist in management -HTN: c/u BP meds adjust prn 4. Resp: encourage incentive spirometry 5. GI: [facility] esophageal strictures s/p dilatation, will consider inhousr GI consult during hospital course- will start protonix 6. endo: pmh hypothyroidism, c/u synthroid, DM continue insulin and ISS, adjust prn 7. DVT ppx: heparin and TEDs 8. : monitor PVRs 9. Skin: cover right plantar lesion with optifoam-refer to podiatry 10. Dispo: TBD POST ADMISSION PHYSICIAN EVALUATION: Medical and functional status: Description of medical status, medical assessment: As above. Rehabilitation diagnosis and current and prior cold morbid medical conditions as above. Risk of complications and plans to mitigate them as above. Description of functional status current status is as above. Prior status as above. Status compared to preadmission: There are no clinically significant differences between the patient's current status and the information described on the preadmission screening document. Treatment plan anticipated: Treatment plan is as described above. Required disciplines including physical therapy, occupational therapy, others as noted above Intensity of services: 3 hours a day, 6 days a week. Special considerations: There are no specific special or safety considerations that would likely preclude immediate implementation of an intensive rehabilitation program or subsequently influence the plan of care ATTESTATION: Considering all the information above, it is my best judgment that this patient requires intensive rehabilitation therapy as described above and an inpatient hospital environment due to the complexity of nursing, medical, and rehabilitation needs required by the patient. Furthermore, this patient can reasonably be expected to participate in an benefit from an inpatient rehabilitation stay with an interdisciplinary team approach to the delivery of rehabilitation care under the direction and supervision of rehabilitation physician. PROGNOSIS: Excellent ESTIMATED LENGTH OF STAY:18-21 days. PROJECTED DISCHARGE DESTINATION: Home with family support and any durable medical equipment required to increase functional safety and mobility TIME SPENT COUNSELING AND COORDINATING INITIAL CARE: Greater than 70 minutes. Vital Signs Vital Signs Date Time Temp Pulse Resp B/P (MAP) Pulse Ox O2 Delivery O2 Flow Rate FiO2 01/24/19 13:00 97.2 58 18 158/72 (100) 96 Home Medications Scheduled Amlodipine Besylate (Amlodipine Besylate) 10 Mg Tablet, 10 MG PO DAILY, (Reported) Aspirin (Aspir 81) 81 Mg Tablet.dr, 81 MG PO DAILY, (Reported) Atenolol (Atenolol) 100 Mg Tablet, 100 MG PO DAILY, (Reported) Atorvastatin Calcium (Atorvastatin Calcium) 40 Mg Tablet, 40 MG PO QHS, (Reported) Clopidogrel Bisulfate (Clopidogrel) 75 Mg Tablet, 75 MG PO DAILY, (Reported) Cyanocobalamin (Vitamin B-12) (Vitamin B-12) 500 Mcg Tablet, 500 MCG PO DAILY, (Reported) Fenofibrate Nanocrystallized (Fenofibrate) 145 Mg Tablet, 145 MG PO DAILY, (Reported) Ferrous Sulfate (Ferrous Sulfate) 325 Mg Tablet.dr, 325 MG PO DAILY, (Reported) WITH BREAKFAST Folic Acid (Folic Acid) 1 Mg Tablet, 1 MG PO DAILY, (Reported) Glucagon,Human Recombinant (Glucagon Emergency Kit) 1 Mg Vial, 1 MG IM ASDIRECTED, (Reported) Insulin Glargine,Hum.rec.anlog (Toujeo Solostar) 300 Unit/1 Ml Insuln.pen, 100 UNIT SC DAILY, (Reported) Insulin Human Lispro (Humalog) 100 Unit/1 Ml Vial, 1 DOSE SC ASDIRECTED, (Reported) 1-8 UNITS DIRECTED Levothyroxine Sodium (Levothyroxine Sodium) 112 Mcg Tablet, 112 MCG PO DAILY, (Reported) Lisinopril (Lisinopril) 40 Mg Tablet, 40 MG PO DAILY, (Reported) [place]-3/Dha/Epa/Fish Oil ([place]-3 Fish Oil 1,000 mg Sfgl) 1,000 Mg Capsule, 1 CAP PO DAILY, (Reported) Scheduled PRN Acetaminophen (Acetaminophen) 325 Mg Tablet, 650 MG PO Q6H PRN for PAIN, (Reported) Allergies Coded Allergies: Contrast Media (Verified Allergy, Unknown, 03/29/13) daptomycin (Verified Allergy, Unknown, 01/24/19) A-FIB/CHADSVASC A-FIB History Current/History of A-Fib/PAF?: No MILDRED JUÁREZ MD Jan 24, 2019 12:49
[2019-01-24 13:00] VITALS: BP 158/72
[2019-01-24] MEDS ORDERED: CLOP75TA2 PO (13:13)
[2019-01-24] MEDS ORDERED: ASPI81TA85 PO (13:13)
[2019-01-24] MEDS ORDERED: AMLO10TA5 PO (13:13)
[2019-01-24] MEDS ORDERED: LISI40TA PO (13:13)
[2019-01-24] MEDS ORDERED: LEVO112T2 PO (13:20)
[2019-01-24] MEDS ORDERED: INSUHUMDS SC (13:20)
[2019-01-24] MEDS ORDERED: ACET1TAB55 PO (13:20)
[2019-01-24] MEDS ORDERED: ATOR40TA75 PO (13:20)
[2019-01-24] MEDS ORDERED: ATEN100T PO (13:20)
[2019-01-24] MEDS ORDERED: GLUC1KIT IM (13:20)
[2019-01-24] MEDS ORDERED: OMEGCAP4 PO (13:22)
[2019-01-24] MEDS ORDERED: FENO145T13 PO (13:22)
[2019-01-24] MEDS ORDERED: VITA500T40 PO (13:22)
[2019-01-24] MEDS ORDERED: FERR325T3 PO (13:24)
[2019-01-24] MEDS ORDERED: TOUJ1.2I SC (13:24)
[2019-01-24] MEDS ORDERED: FOLI1TAB11 PO (13:24)
[2019-01-24] MEDS: HumaLOG INSULIN (NovoLOG) PER UNIT SC SCH ×3 (14:30→20:23)
--- NOTE | 2019-01-24 18:35 | HPEPDOC ---
[facility] Medical History & Physical Date of Admission Jan 24, 2019 Date of Service: Jan 24, 2019 Attending Physician: MILDRED JUÁREZ MD History and Physical CHIEF COMPLAINT: CVA HISTORY OF PRESENT ILLNESS: 73 yo male transfered from [facility] to [facility] for rehab after having tPA for CVA with residual left sided weakness and dysphagia. Patient states he still has residual left sided numbness but able to move left l ower leg. 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 State no CP, no N, no V, no ACEVEDO, no vision changes, no SOB, occasional dysarthria. States no abdomen pain, diarrhea or constipation. no complaints. PAST MEDICAL HISTORY: Type 2 IDDM HTN Hypercholesterolemia Aortic Pig Valve Replacement CVA (s/p tPA) involving the right hernandez radiata/internal capsule - ischemic infarct [place] 2009 with cardiac arrest PAST SURGICAL HISTORY: CABG x 4 in 2009 R Foot Great Toe and 3rd Toe Amputations Bilateral cataract surgery ALLERGIES: Daptomycin Doxycycline: gi upset Contrast Media SOCIAL HISTORY: Quit smoking 35 years ago. Smoked 4 PPD since age [age]. 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 Father: of [place] in 50s. 1 Sister: DM Son: Colon Cancer Status-Post Colectomy ALLERGIES: Please see below. REVIEW OF SYSTEMS: 10 systems reviewed and negative except as per HPI HOME MEDICATIONS: Please see below. PHYSICAL EXAMINATION: VITAL SIGNS: as below GENERAL APPEARANCE: pleasant, NAD AAOx3 HEENT: upper/lower dentures, no tongue deviation, HARRIS/EOMI; oral mucosa moist CARDIOVASCULAR: RRR no murmur LUNGS: CTA no W/R/R ABDOMEN: soft NT ND NABS MUSCULOSKELETAL: sensation intact to upper and lower extremities bilaterally but no movement to left upper arm EXTREMITIES: no edema; decreased muscle strength left lower leg; right foot with healed hallux and 3rd toe amputation NEUROLOGICAL: left lower facial droop, no movement left upper extremity; left lower extremity with 3/5 strength and able to lift agains gravity but not resistance. DTR intact; PSYCHIATRIC: normal mood and affect SKIN: right plantar surface 2.5cm hard callous at distal MTP 2nd/3rd area; LABORATORY DATA: See below. IMAGING: Records pending review of including MRI, Echo, Carotid US LABS PENDING: CBC,CMP for AM ASSESSMENT/PLAN: 1) ischemic CVA - S/P tPA with residual left sided weakness management per ARU, PT/OT; ASA/plavix 2) Type 2 IDDM - SSI, Levemir (1/2 dose of outpatient) and monitor BS 3) HTN - stable - avoid hypotension (less than 110) and hypertension (above 160); continue current medications norvasc, atenolol,prinivil 4) Hypercholesterolemia - lipitor/tricor 5) history of Aortic Pig Valve Replacement - anticoagulation with warfarin or NOAC not indications. 6) hypothryoid - continue levothryoxine DVT prophylaxis: Heparin SC Vital Signs Vital Signs Date Time Temp Pulse Resp B/P (MAP) Pulse Ox O2 Delivery O2 Flow Rate FiO2 01/24/19 13:00 97.2 58 18 158/72 (100) 96 Laboratory Data Labs 24H Laboratory Tests 2 01/24/19 13:28: Bedside Glucose (Misc Panel) 167H Home Medications Scheduled Amlodipine Besylate (Amlodipine Besylate) 10 Mg Tablet, 10 MG PO DAILY Aspirin (Aspir 81) 81 Mg Tablet.dr, 81 MG PO DAILY Atenolol (Atenolol) 100 Mg Tablet, 100 MG PO DAILY Atorvastatin Calcium (Atorvastatin Calcium) 40 Mg Tablet, 40 MG PO QHS Clopidogrel Bisulfate (Clopidogrel) 75 Mg Tablet, 75 MG PO DAILY Cyanocobalamin (Vitamin B-12) (Vitamin B-12) 500 Mcg Tablet, 500 MCG PO DAILY Fenofibrate Nanocrystallized (Fenofibrate) 145 Mg Tablet, 145 MG PO DAILY Ferrous Sulfate (Ferrous Sulfate) 325 Mg Tablet.dr, 325 MG PO DAILY WITH BREAKFAST Folic Acid (Folic Acid) 1 Mg Tablet, 1 MG PO DAILY Glucagon,Human Recombinant (Glucagon Emergency Kit) 1 Mg Vial, 1 MG IM ASDIRECTED Insulin Glargine,Hum.rec.anlog (Chastity Peterson) 300 Unit/1 Ml Insuln.pen, 100 UNIT SC DAILY Insulin Human Lispro (Humalog) 100 Unit/1 Ml Vial, 1 DOSE SC ASDIRECTED 1-8 UNITS DIRECTED Levothyroxine Sodium (Levothyroxine Sodium) 112 Mcg Tablet, 112 MCG PO DAILY Lisinopril (Lisinopril) 40 Mg Tablet, 40 MG PO DAILY [place]-3/Dha/Epa/Fish Oil ([place]-3 Fish Oil 1,000 mg Sfgl) 1,000 Mg Capsule, 1 CAP PO DAILY Scheduled PRN Acetaminophen (Acetaminophen) 325 Mg Tablet, 650 MG PO Q6H PRN for PAIN Allergies Coded Allergies: Contrast Media (Verified Allergy, Unknown, 03/29/13) daptomycin (Verified Allergy, Unknown, 01/24/19) A-FIB/CHADSVASC A-FIB History Current/History of A-Fib/PAF?: No Current PO Anticoag Therapy: Yes KAT JUSTICE DO Jan 24, 2019 16:03
[2019-01-24 20:00] VITALS: BP 156/71
[2019-01-24] MEDS: SENNA 8.6 MG TAB (SENOKOT) PO SCH (20:34)
[2019-01-24] MEDS: ATORVASTATIN 20 MG TAB PO SCH (20:34)
[2019-01-24] MEDS: HEPARIN SOD (PORCINE) 5000 UNITS/ML VIAL SQ SCH (20:34)
[2019-01-24] MEDS: FLUoxetine 20 MG CAP PO SCH (20:34)
[2019-01-24] MEDS: DOCUSATE SODIUM 100 MG CAP PO SCH (20:34)
[2019-01-25] MEDS: LEVOTHYROXINE 112MCG TABLET (0.112MG) PO SCH (05:49)
[2019-01-25 06:00] VITALS: BP 150/80
[2019-01-25 06:43] LABS: BASO % 0.2 % (0.0-1.0); EOS # 0.1 10^3/uL (0.0-0.50); EOS % 1.4 % (0.0-3.0); HEMATOCRIT 39.5 % (42.0-52.0); HEMOGLOBIN 12.7 g/dl (13.5-17.5); LYMPH # 0.8 10^3/uL (1.5-4.5); LYMPH % 16.4 % (24.0-44.0); MEAN CORPUSCULAR HEMOGLOBIN 27.9 pg (27.0-33.0); MEAN CORPUSCULAR HGB CONC 32.2 g/dl (32.0-36.5); MEAN CORPUSCULAR VOLUME 86.8 fl (80.0-96.0); MONO # 0.7 10^3/uL (0.0-0.8); MONO % 13.7 % (0.0-5.0); NEUTROPHILS # 3.4 10^3/uL (1.8-7.7); NEUTROPHILS % 67.1 % (36.0-66.0); PLATELET COUNT, AUTOMATED 133 10^3/uL (150-450); RED BLOOD COUNT 4.55 10^6/uL (4.30-6.10); WHITE BLOOD COUNT 5.1 10^3/uL (4.0-10.0)
[2019-01-25 07:11] LABS: BILIRUBIN,TOTAL 0.8 MG/DL (0.2-1.0); CALCIUM LEVEL 8.7 MG/DL (8.8-10.2); CREATININE FOR GFR 2.57 MG/DL (0.70-1.30); GLOMERULAR FILTRATION RATE 26.1 (>42); POTASSIUM SERUM 4.5 MEQ/L (3.5-5.1); TOTAL PROTEIN 7.4 GM/DL (6.4-8.2)
[2019-01-25] MEDS ORDERED: ATENOLOL 50 MG TAB PO SCH (09:00)
[2019-01-25] MEDS: LEVEMIR (INSULIN DETEMIR) 1 UNITS/0.01ML SC SCH (09:08)
[2019-01-25] MEDS: DOCUSATE SODIUM 100 MG CAP PO SCH ×2 (09:08→21:00)
[2019-01-25] MEDS: FERROUS SULFATE 325MG TAB PO SCH (09:08)
[2019-01-25] MEDS: ASPIRIN 81 MG CHEW TABLET PO SCH (09:08)
[2019-01-25] MEDS: HEPARIN SOD (PORCINE) 5000 UNITS/ML VIAL SQ SCH ×2 (09:08→21:15)
[2019-01-25] MEDS: CLOPIDOGREL 75 MG TAB PO SCH (09:08)
[2019-01-25] MEDS: CYANOCOBALAMIN 500 MCG TAB PO SCH (09:09)
[2019-01-25] MEDS: HumaLOG INSULIN (NovoLOG) PER UNIT SC SCH ×4 (09:09→21:00)
[2019-01-25] MEDS: OMEGA-3 1000MG CAPSULE PO SCH (09:09)
[2019-01-25] MEDS: FENOFIBRATE 145 MG TAB (TRICOR) PO SCH (09:09)
[2019-01-25] MEDS: FOLIC ACID 1 MG TAB PO SCH (09:09)
[2019-01-25] MEDS: amLODIPine 10 MG TAB PO SCH (09:09)
[2019-01-25] MEDS: LISINOPRIL 40 MG TAB PO SCH (09:09)
--- NOTE | 2019-01-25 11:52 | IPNPDOC ---
PM&R Progress Note DATE OF SERVICE: Jan 25, 2019 Lion Trainer Progress Note Subjective: Patient seen with partner bedside, stating he feels fine. He denies a choking sensation in his throat and able to participate in therapy. REVIEW OF SYSTEMS: The following is a completed review of systems and has been reviewed. Review of systems otherwise unremarkable. PAIN: Patient self reports no pain EYES: No recent vision changes EARS, NOSE, & THROAT: +dysphagia CARDIOVASCULAR: Denies chest pain or palpitations PULMONARY: Denies shortness of breath GASTROINTESTINAL: Denies constipation/diarrhea GENITOURINARY: denies dysuria MUSCULOSKELETAL: left UE weakenss NEUROLOGICAL: left UE paresis HEMATOLOGICAL: negative SKIN: right plantar foot ulcer PSYCHIATRIC: Unremarkable All other review of systems found to be negative. PHYSICAL EXAMINATION: VITAL SIGNS: Please see below. GENERAL: Pleasant and cooperative. No acute distress. +left sided facial droop HEENT: PERRL. Extraocular movements intact. Clear conjunctiva CARDIOVASCULAR: Regular rate and rhythm. No murmurs, rubs, or gallops LUNGS: Clear to auscultation bilaterally. No wheezes. No rhonchi ABDOMEN: Soft, nontender, nondistended. Positive bowel sounds. Normal active bowel sounds NEUROLOGICAL: Alert and oriented times three. Cranial nerves II through XII grossly intact. Sensation grossly intact, no neglect appreciated (-) babinkski bilat, hyper-reflexia LUE 1/4 MAS elbow flexion tone EXTREMITIES: 5\5 strength right upper extremities. 2/5 strengthen right elbow flexors, extensors, and suggestion clerk, 1/5 wrist extension 5\5 strength right lower extremity. 4-/5 strength in left lower extremity. SKIN: right plantar hyperkeratotic lesion ASSESSMENT:73-year-old M with past medical history of CABG and DM who presents status post stroke. PLAN: 1. 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 Neuro: s/p right hernandez-radiata and putamen stroke with left sided hemiparesis with gait impairment, c/u ASa and Plavix for 3 weeks, then starting 02/11/19 continue solely on ASA -c/u Tricor and BP management for secondary stroke prevention -Fluoxetine for motor recovery 3. CArdio: [facility] Aortic valve repair and CABG, most recent ECHO 09/2017 with normal LVEF- medicine consulted to assist in management -HTN: c/u BP meds adjust prn 4. Resp: encourage incentive spirometry 5. GI: pmh esophageal strictures s/p dilatation, will consider inhouse GI consult during hospital course- will start protonix 6. endo: pmh hypothyroidism, c/u synthroid, DM continue insulin and ISS, adjust prn 7. DVT ppx: heparin and TEDs 8. : monitor PVRs 9. Skin: cover right plantar lesion with optifoam-refer to podiatry 10. Dispo: TBD Allergies Coded Allergies: Contrast Media (Verified Allergy, Unknown, 03/29/13) daptomycin (Verified Allergy, Unknown, 01/24/19) Vital Signs Vital Signs Date Time Temp Pulse Resp B/P (MAP) Pulse Ox O2 Delivery O2 Flow Rate FiO2 01/25/19 09:09 52 150/80 01/25/19 06:00 97.3 17 97 Laboratory Data CBC/BMP Laboratory Tests 01/25/19 06:20 Red Blood Count 4.55, Mean Corpuscular Volume 86.8, Mean Corpuscular Hemoglobin 27.9, Mean Corpuscular Hemoglobin Concent 32.2, Red Cell Distribution Width 15.2 H, Neutrophils (%) (Auto) 67.1 H, Lymphocytes (%) (Auto) 16.4 L, Monocytes (%) (Auto) 13.7 H, Eosinophils (%) (Auto) 1.4, Basophils (%) (Auto) 0.2, Neutrophils # (Auto) 3.4, Lymphocytes # (Auto) 0.8 L, Monocytes # (Auto) 0.7, Eosinophils # (Auto) 0.1, Basophils # (Auto) 0.0, Calcium Level 8.7 L, Aspartate Amino Transf (AST/SGOT) 29, Alanine Aminotransferase (ALT/SGPT) 27, Alkaline Phosphatase 99, Total Bilirubin 0.8, Total Protein 7.4, Albumin 3.0 L Labs 24H Laboratory Tests 2 01/24/19 13:28: Bedside Glucose (Misc Panel) 167H 01/24/19 16:42: Bedside Glucose (Misc Panel) 140H 01/24/19 20:02: Bedside Glucose (Misc Panel) 219H 01/25/19 06:02: Bedside Glucose (Misc Panel) 174H 01/25/19 06:20: Immature Granulocyte % (Auto) 1.2, White Blood Count 5.1, Red Blood Count 4.55, Hemoglobin 12.7L, Hematocrit 39.5L, Mean Corpuscular Volume 86.8, Mean Corpuscular Hemoglobin 27.9, Mean Corpuscular Hemoglobin Concent 32.2, Red Cell Distribution Width 15.2H, Platelet Count 133L, Neutrophils (%) (Auto) 67.1H, Lymphocytes (%) (Auto) 16.4L, Monocytes (%) (Auto) 13.7H, Eosinophils (%) (Auto) 1.4, Basophils (%) (Auto) 0.2, Neutrophils # (Auto) 3.4, Lymphocytes # (Auto) 0.8L, Monocytes # (Auto) 0.7, Eosinophils # (Auto) 0.1, Basophils # (Auto) 0.0, Nucleated Red Blood Cells % (auto) 0.0, Anion Gap 8, Glomerular Filtration Rate 26.1L, Blood Urea Nitrogen 50H, Creatinine 2.57H, Sodium Level 142, Potassium Level 4.5, Chloride Level 113H, Carbon Dioxide Level 21, Calcium Level 8.7L, Aspartate Amino Transf (AST/SGOT) 29, Alanine Aminotransferase (ALT/SGPT) 27, Alkaline Phosphatase 99, Total Bilirubin 0.8, Total Protein 7.4, Albumin 3.0L, Albumin/Globulin Ratio 0.68L 01/25/19 11:16: Bedside Glucose (Misc Panel) 190H Current Medications Current Medications Current Medications Acetaminophen (Tylenol Tab) 650 mg Q6HP PRN PO PAIN / FEVER; Start 01/24/19 at 12:15 Amlodipine Besylate (Norvasc) 10 mg DAILY PO Last administered on 01/25/19at 09:09; Start 01/25/19 at 09:00 Aspirin (Aspirin Chewable) 81 mg DAILY PO Last administered on 01/25/19at 09:08; Start 01/25/19 at 09:00 Atenolol (Tenormin) 100 mg DAILY PO ; Start 01/25/19 at 09:00 Atorvastatin Calcium (Lipitor) 40 mg QHS PO Last administered on 01/24/19at 20:34; Start 01/24/19 at 21:00 Bisacodyl (Dulcolax Suppository) 10 mg DAILYPRN PRN NV CONSTIPATION; Start 01/24/19 at 12:15 Clopidogrel Bisulfate (PLAVix) 75 mg DAILY PO Last administered on 01/25/19at 09:08; Start 01/25/19 at 09:00 Cyanocobalamin (Vitamin B12) 500 mcg DAILY PO Last administered on 01/25/19at 09:09; Start 01/25/19 at 09:00 Dextrose (Dextrose 50%) 25 ml ASDIRECTED PRN IV SEE LABEL COMMENTS; Start 01/24/19 at 12:15 Docusate Sodium (Colace) 100 mg BID PO Last administered on 01/25/19at 09:08; Start 01/24/19 at 21:00 Fenofibrate (Tricor) 145 mg DAILY PO Last administered on 01/25/19at 09:09; Start 01/25/19 at 09:00 Ferrous Sulfate (Ferrous Sulfate) 325 mg DAILY PO Last administered on 01/25/19at 09:08; Start 01/25/19 at 09:00 Fish Oil (Seco-3 (1000mg)) 1 cap DAILY PO Last administered on 01/25/19at 09:09; Start 01/25/19 at 09:00 Fluoxetine HCl (PROzac) 20 mg QHS PO Last administered on 01/24/19at 20:34; Start 01/24/19 at 21:00 Folic Acid (Folic Acid) 1 mg DAILY PO Last administered on 01/25/19at 09:09; Start 01/25/19 at 09:00 Glucagon (Glucagon) 1 mg ASDIRECTED PRN SC SEE LABEL COMMENTS; Start 01/24/19 at 12:15 Glucose (Glucose) 16 GM ASDIRECTED PRN PO SEE LABEL COMMENTS; Start 01/24/19 at 12:15 Heparin Sodium (Porcine) (Heparin) 5,000 units Q12H SQ Last administered on 01/25/19at 09:08; Start 01/24/19 at 21:00 Home Med (Med Rec Complete!) ASDIRECTED XX ; Start 01/24/19 at 13:30; Stop 01/24/19 at 13:56; Status DC Insulin Detemir (Levemir Insulin) 50 units DAILY SC Last administered on 01/25/19at 09:08; Start 01/25/19 at 09:00 Insulin Human Lispro (HumaLOG INSULIN) SEE PROTOCOL TABLE AC SC Last administered on 01/25/19at 11:36; Start 01/24/19 at 12:00 Insulin Human Lispro (HumaLOG INSULIN) SEE PROTOCOL TABLE QHS SC ; Start 01/24/19 at 21:00 Levothyroxine Sodium (Synthroid) 112 mcg DAILY@06 PO Last administered on 01/25/19at 05:49; Start 01/25/19 at 06:00 Lisinopril (Prinivil) 40 mg DAILY PO Last administered on 01/25/19at 09:09; Start 01/25/19 at 09:00 Magnesium Hydroxide (Milk Of Magnesia) 30 ml DAILYPRN PRN PO CONSTIPATION; Start 01/24/19 at 12:15 Senna (Senokot) 1 tab QHS PO Last administered on 01/24/19at 20:34; Start 01/24/19 at 21:00 MILDRED JUÁREZ MD Jan 25, 2019 11:52
[2019-01-25 14:00] VITALS: BP 136/70
[2019-01-25] MEDS: hydroCHLOROthiazide 25 MG TAB PO SCH (14:37)
--- NOTE | 2019-01-25 14:48 | NUR ---
Recommend mechanical soft solids and thin liquids. Upright in chair as able for meals. Set-up assist. Encourage compensatory strategies: small bite, tongue or finger sweep to left cheek, liquid wash. Recommend f/u w/ GI for repeat endoscopy d/t hx esophageal stricture & c/o intermittent globus sensation. Addendum: 01/25/[address] [facility] Amended: Links added.
--- NOTE | 2019-01-25 14:52 | NUR ---
Pt scores wnl on cognitive assessment. Pt & his significant other deny any changes in pt's cognition since CVA. All questions answered. Cognitive tx is not recommended at this time. Please contact TERMINATION CLERK w/ any additional concerns or questions. Addendum: 01/25/[address] [facility] Amended: Links added.
[2019-01-25] MEDS ORDERED: LIDOCAINE 5% (LIDODERM) PATCH TD SCH (16:45)
[2019-01-25 20:00] VITALS: BP 160/78
[2019-01-25] MEDS: LIDOCAINE 5% (LIDODERM) PATCH TD SCH (21:00)
[2019-01-25] MEDS: SENNA 8.6 MG TAB (SENOKOT) PO SCH (21:00)
[2019-01-25] MEDS: FLUoxetine 20 MG CAP PO SCH (21:14)
[2019-01-25] MEDS: ATORVASTATIN 20 MG TAB PO SCH (21:14)
[2019-01-26 06:00] VITALS: BP 130/72
[2019-01-26] MEDS: LEVOTHYROXINE 112MCG TABLET (0.112MG) PO SCH (06:00)
[2019-01-26] MEDS: HumaLOG INSULIN (NovoLOG) PER UNIT SC SCH ×4 (07:30→21:00)
[2019-01-26] MEDS: METOPROLOL SUCC *XL* 12.5MG PER 1/2 TAB (TopROL *XL*) PO SCH ×2 (08:05→08:46)
[2019-01-26] MEDS: DOCUSATE SODIUM 100 MG CAP PO SCH ×2 (08:07→21:00)
[2019-01-26] MEDS: LEVEMIR (INSULIN DETEMIR) 1 UNITS/0.01ML SC SCH (08:44)
[2019-01-26] MEDS: LISINOPRIL 40 MG TAB PO SCH (08:45)
[2019-01-26] MEDS: HEPARIN SOD (PORCINE) 5000 UNITS/ML VIAL SQ SCH ×2 (08:45→21:04)
[2019-01-26] MEDS: FENOFIBRATE 145 MG TAB (TRICOR) PO SCH (08:45)
[2019-01-26] MEDS: amLODIPine 10 MG TAB PO SCH (08:46)
[2019-01-26] MEDS: CLOPIDOGREL 75 MG TAB PO SCH (08:46)
[2019-01-26] MEDS: CYANOCOBALAMIN 500 MCG TAB PO SCH (08:46)
[2019-01-26] MEDS: FERROUS SULFATE 325MG TAB PO SCH (08:46)
[2019-01-26] MEDS: OMEGA-3 1000MG CAPSULE PO SCH (08:47)
[2019-01-26] MEDS: **NOTE PATIENT COMMENT** MISC XX SCH (08:47)
[2019-01-26] MEDS: FOLIC ACID 1 MG TAB PO SCH (08:47)
[2019-01-26] MEDS: hydroCHLOROthiazide 25 MG TAB PO SCH (08:47)
[2019-01-26] MEDS: ASPIRIN 81 MG CHEW TABLET PO SCH (08:47)
[2019-01-26 14:00] VITALS: BP 122/58
--- NOTE | 2019-01-26 14:20 | NUR ---
Pt w/ mild flaccid dysarthria characterized by hypernasal speech and imprecise articulation w/ left-sided weakness. Recommend over-articulation, phonemic drills, and oral motor exercises. Addendum: 01/26/19 at 1420 by MIYA BURR [facility] Amended: Links added.
[2019-01-26 20:00] VITALS: BP 135/64
[2019-01-26] MEDS: SENNA 8.6 MG TAB (SENOKOT) PO SCH (21:00)
[2019-01-26] MEDS: LIDOCAINE 5% (LIDODERM) PATCH TD SCH (21:00)
[2019-01-26] MEDS: FLUoxetine 20 MG CAP PO SCH (21:02)
[2019-01-26] MEDS: ATORVASTATIN 20 MG TAB PO SCH (21:03)
[2019-01-27] MEDS: LEVOTHYROXINE 112MCG TABLET (0.112MG) PO SCH (05:25)
[2019-01-27 05:33] VITALS: BP 166/81
[2019-01-27 07:30] LABS: HEMATOCRIT 38.1 % (42.0-52.0); HEMOGLOBIN 12.3 g/dl (13.5-17.5); MEAN CORPUSCULAR HEMOGLOBIN 28.1 pg (27.0-33.0); MEAN CORPUSCULAR HGB CONC 32.3 g/dl (32.0-36.5); PLATELET COUNT, AUTOMATED 122 10^3/uL (150-450); RED BLOOD COUNT 4.38 10^6/uL (4.30-6.10)
[2019-01-27] MEDS: HumaLOG INSULIN (NovoLOG) PER UNIT SC SCH ×4 (07:30→20:02)
[2019-01-27] MEDS: METOPROLOL SUCC *XL* 12.5MG PER 1/2 TAB (TopROL *XL*) PO SCH (09:00)
[2019-01-27] MEDS: **NOTE PATIENT COMMENT** MISC XX SCH (09:00)
[2019-01-27] MEDS: LEVEMIR (INSULIN DETEMIR) 1 UNITS/0.01ML SC SCH (09:35)
[2019-01-27] MEDS: HEPARIN SOD (PORCINE) 5000 UNITS/ML VIAL SQ SCH ×2 (09:35→20:52)
[2019-01-27] MEDS: FENOFIBRATE 145 MG TAB (TRICOR) PO SCH (09:37)
[2019-01-27] MEDS: LISINOPRIL 40 MG TAB PO SCH (09:37)
[2019-01-27] MEDS: OMEGA-3 1000MG CAPSULE PO SCH (09:37)
[2019-01-27] MEDS: hydroCHLOROthiazide 25 MG TAB PO SCH (09:38)
[2019-01-27] MEDS: ASPIRIN 81 MG CHEW TABLET PO SCH (09:38)
[2019-01-27] MEDS: CLOPIDOGREL 75 MG TAB PO SCH (09:38)
[2019-01-27] MEDS: FERROUS SULFATE 325MG TAB PO SCH (09:38)
[2019-01-27] MEDS: CYANOCOBALAMIN 500 MCG TAB PO SCH (09:38)
[2019-01-27] MEDS: FOLIC ACID 1 MG TAB PO SCH (09:38)
[2019-01-27] MEDS: DOCUSATE SODIUM 100 MG CAP PO SCH ×3 (09:38→20:59)
[2019-01-27] MEDS: amLODIPine 10 MG TAB PO SCH (09:46)
[2019-01-27 14:00] VITALS: BP 96/54
[2019-01-27 14:25] VITALS: BP 96/54
--- NOTE | 2019-01-27 15:22 | NUR ---
Recommend upgrade to regular solids, continue thin liquids. Addendum: 01/27/19 at [address] [facility] Amended: Links added.
[2019-01-27 19:32] VITALS: BP 144/70
[2019-01-27] MEDS: ATORVASTATIN 20 MG TAB PO SCH (20:52)
[2019-01-27] MEDS: FLUoxetine 20 MG CAP PO SCH (20:52)
[2019-01-27] MEDS: LIDOCAINE 5% (LIDODERM) PATCH TD SCH (20:54)
[2019-01-27] MEDS: SENNA 8.6 MG TAB (SENOKOT) PO SCH (20:59)
[2019-01-28 05:55] VITALS: BP 147/68
[2019-01-28] MEDS: LEVOTHYROXINE 112MCG TABLET (0.112MG) PO SCH (06:00)
[2019-01-28] MEDS: HEPARIN SOD (PORCINE) 5000 UNITS/ML VIAL SQ SCH ×2 (08:18→20:23)
[2019-01-28] MEDS: ASPIRIN 81 MG CHEW TABLET PO SCH (08:18)
[2019-01-28] MEDS: DOCUSATE SODIUM 100 MG CAP PO SCH ×2 (08:19→20:24)
[2019-01-28] MEDS: CYANOCOBALAMIN 500 MCG TAB PO SCH (08:21)
[2019-01-28] MEDS: amLODIPine 10 MG TAB PO SCH (08:21)
[2019-01-28] MEDS: hydroCHLOROthiazide 25 MG TAB PO SCH (08:21)
[2019-01-28] MEDS: METOPROLOL SUCC *XL* 12.5MG PER 1/2 TAB (TopROL *XL*) PO SCH (08:21)
[2019-01-28] MEDS: FENOFIBRATE 145 MG TAB (TRICOR) PO SCH (08:21)
[2019-01-28] MEDS: HumaLOG INSULIN (NovoLOG) PER UNIT SC SCH ×4 (08:22→20:10)
[2019-01-28] MEDS: FERROUS SULFATE 325MG TAB PO SCH (08:24)
[2019-01-28] MEDS: CLOPIDOGREL 75 MG TAB PO SCH (08:24)
[2019-01-28] MEDS: FOLIC ACID 1 MG TAB PO SCH (08:24)
[2019-01-28] MEDS: LEVEMIR (INSULIN DETEMIR) 1 UNITS/0.01ML SC SCH (08:25)
[2019-01-28] MEDS: LISINOPRIL 40 MG TAB PO SCH (08:25)
[2019-01-28] MEDS: OMEGA-3 1000MG CAPSULE PO SCH (08:25)
[2019-01-28] MEDS: **NOTE PATIENT COMMENT** MISC XX SCH (08:26)
[2019-01-28 14:00] VITALS: BP 144/68
[2019-01-28 20:08] VITALS: BP 132/68
[2019-01-28] MEDS: ATORVASTATIN 20 MG TAB PO SCH (20:23)
[2019-01-28] MEDS: FLUoxetine 20 MG CAP PO SCH (20:23)
[2019-01-28] MEDS: SENNA 8.6 MG TAB (SENOKOT) PO SCH (20:24)
[2019-01-28] MEDS: LIDOCAINE 5% (LIDODERM) PATCH TD SCH (20:24)
[2019-01-29] MEDS: LEVOTHYROXINE 112MCG TABLET (0.112MG) PO SCH (06:02)
[2019-01-29 06:19] VITALS: BP 142/67
[2019-01-29] MEDS: **NOTE PATIENT COMMENT** MISC XX SCH (07:05)
[2019-01-29] MEDS: METOPROLOL SUCC *XL* 12.5MG PER 1/2 TAB (TopROL *XL*) PO SCH (07:54)
[2019-01-29] MEDS: HumaLOG INSULIN (NovoLOG) PER UNIT SC SCH ×4 (08:04→20:11)
[2019-01-29] MEDS: ASPIRIN 81 MG CHEW TABLET PO SCH (08:05)
[2019-01-29] MEDS: CYANOCOBALAMIN 500 MCG TAB PO SCH (08:05)
[2019-01-29] MEDS: amLODIPine 10 MG TAB PO SCH (08:05)
[2019-01-29] MEDS: FERROUS SULFATE 325MG TAB PO SCH (08:05)
[2019-01-29] MEDS: HEPARIN SOD (PORCINE) 5000 UNITS/ML VIAL SQ SCH ×2 (08:05→21:04)
[2019-01-29] MEDS: LEVEMIR (INSULIN DETEMIR) 1 UNITS/0.01ML SC SCH (08:05)
[2019-01-29] MEDS: hydroCHLOROthiazide 25 MG TAB PO SCH (08:06)
[2019-01-29] MEDS: FENOFIBRATE 145 MG TAB (TRICOR) PO SCH (08:06)
[2019-01-29] MEDS: LISINOPRIL 40 MG TAB PO SCH (08:06)
[2019-01-29] MEDS: CLOPIDOGREL 75 MG TAB PO SCH (08:06)
[2019-01-29] MEDS: FOLIC ACID 1 MG TAB PO SCH (08:06)
[2019-01-29] MEDS: DOCUSATE SODIUM 100 MG CAP PO SCH ×2 (08:07→21:00)
[2019-01-29] MEDS: OMEGA-3 1000MG CAPSULE PO SCH (08:07)
[2019-01-29 14:00] VITALS: BP 143/72
[2019-01-29 20:00] VITALS: BP 147/69
[2019-01-29] MEDS: LIDOCAINE 5% (LIDODERM) PATCH TD SCH (21:00)
[2019-01-29] MEDS: SENNA 8.6 MG TAB (SENOKOT) PO SCH (21:00)
[2019-01-29] MEDS: FLUoxetine 20 MG CAP PO SCH (21:04)
[2019-01-29] MEDS: ATORVASTATIN 20 MG TAB PO SCH (21:04)
[2019-01-30] MEDS: LEVOTHYROXINE 112MCG TABLET (0.112MG) PO SCH (05:55)
[2019-01-30 06:00] VITALS: BP 133/64
[2019-01-30 06:51] LABS: HEMATOCRIT 37.2 % (42.0-52.0); HEMOGLOBIN 12.2 g/dl (13.5-17.5); MEAN CORPUSCULAR HGB CONC 32.8 g/dl (32.0-36.5); MEAN CORPUSCULAR VOLUME 85.3 fl (80.0-96.0); PLATELET COUNT, AUTOMATED 132 10^3/uL (150-450); RED BLOOD COUNT 4.36 10^6/uL (4.30-6.10)
[2019-01-30] MEDS: DOCUSATE SODIUM 100 MG CAP PO SCH ×2 (09:00→20:33)
[2019-01-30] MEDS: **NOTE PATIENT COMMENT** MISC XX SCH (09:00)
[2019-01-30] MEDS: OMEGA-3 1000MG CAPSULE PO SCH (09:00)
[2019-01-30] MEDS: METOPROLOL SUCC *XL* 12.5MG PER 1/2 TAB (TopROL *XL*) PO SCH (09:00)
[2019-01-30] MEDS: LEVEMIR (INSULIN DETEMIR) 1 UNITS/0.01ML SC SCH (09:51)
[2019-01-30] MEDS: LISINOPRIL 40 MG TAB PO SCH (09:52)
[2019-01-30] MEDS: HumaLOG INSULIN (NovoLOG) PER UNIT SC SCH ×4 (09:52→20:33)
[2019-01-30] MEDS: FENOFIBRATE 145 MG TAB (TRICOR) PO SCH (09:52)
[2019-01-30] MEDS: FOLIC ACID 1 MG TAB PO SCH (09:52)
[2019-01-30] MEDS: hydroCHLOROthiazide 25 MG TAB PO SCH (09:55)
[2019-01-30] MEDS: ASPIRIN 81 MG CHEW TABLET PO SCH (09:55)
[2019-01-30] MEDS: amLODIPine 10 MG TAB PO SCH (09:55)
[2019-01-30] MEDS: FERROUS SULFATE 325MG TAB PO SCH (09:55)
[2019-01-30] MEDS: CLOPIDOGREL 75 MG TAB PO SCH (09:55)
[2019-01-30] MEDS: CYANOCOBALAMIN 500 MCG TAB PO SCH (09:55)
[2019-01-30] MEDS: HEPARIN SOD (PORCINE) 5000 UNITS/ML VIAL SQ SCH ×2 (09:56→20:32)
[2019-01-30 14:00] VITALS: BP 133/70
[2019-01-30 19:59] VITALS: BP 150/68
[2019-01-30] MEDS: ATORVASTATIN 20 MG TAB PO SCH (20:32)
[2019-01-30] MEDS: FLUoxetine 20 MG CAP PO SCH (20:32)
[2019-01-30] MEDS: SENNA 8.6 MG TAB (SENOKOT) PO SCH (20:33)
[2019-01-30] MEDS: LIDOCAINE 5% (LIDODERM) PATCH TD SCH (20:34)
[2019-01-31] MEDS: LEVOTHYROXINE 112MCG TABLET (0.112MG) PO SCH (05:49)
[2019-01-31 06:00] VITALS: BP 147/70
[2019-01-31] MEDS: HumaLOG INSULIN (NovoLOG) PER UNIT SC SCH ×5 (07:17→20:53)
[2019-01-31] MEDS: **NOTE PATIENT COMMENT** MISC XX SCH (09:00)
[2019-01-31] MEDS: OMEGA-3 1000MG CAPSULE PO SCH (09:00)
[2019-01-31] MEDS: FOLIC ACID 1 MG TAB PO SCH (09:43)
[2019-01-31] MEDS: CYANOCOBALAMIN 500 MCG TAB PO SCH (09:43)
[2019-01-31] MEDS: HEPARIN SOD (PORCINE) 5000 UNITS/ML VIAL SQ SCH ×2 (09:43→20:50)
[2019-01-31] MEDS: hydroCHLOROthiazide 25 MG TAB PO SCH (09:44)
[2019-01-31] MEDS: FENOFIBRATE 145 MG TAB (TRICOR) PO SCH (09:44)
[2019-01-31] MEDS: ASPIRIN 81 MG CHEW TABLET PO SCH (09:44)
[2019-01-31] MEDS: LISINOPRIL 40 MG TAB PO SCH (09:44)
[2019-01-31] MEDS: CLOPIDOGREL 75 MG TAB PO SCH (09:44)
[2019-01-31] MEDS: DOCUSATE SODIUM 100 MG CAP PO SCH ×2 (09:44→20:51)
[2019-01-31] MEDS: amLODIPine 10 MG TAB PO SCH (09:44)
[2019-01-31] MEDS: FERROUS SULFATE 325MG TAB PO SCH (09:44)
[2019-01-31] MEDS: METOPROLOL SUCC *XL* 12.5MG PER 1/2 TAB (TopROL *XL*) PO SCH (09:45)
[2019-01-31] MEDS: LEVEMIR (INSULIN DETEMIR) 1 UNITS/0.01ML SC SCH (09:46)
[2019-01-31 14:00] VITALS: BP 131/60
--- NOTE | 2019-01-31 18:05 | IPNPDOC ---
PM&R Progress Note DATE OF SERVICE: Jan 27, 2019 Grip Wrapper Progress Note Subjective: Patient instructed on how to strengthen his left arm outside of therapy and the importance of doing these exercises to maximize recovery. REVIEW OF SYSTEMS: The following is a completed review of systems and has been reviewed. Review of systems otherwise unremarkable. PAIN: Patient self reports no pain EYES: No recent vision changes EARS, NOSE, & THROAT: +dysphagia CARDIOVASCULAR: Denies chest pain or palpitations PULMONARY: Denies shortness of breath GASTROINTESTINAL: Denies constipation/diarrhea GENITOURINARY: denies dysuria MUSCULOSKELETAL: left UE weakenss NEUROLOGICAL: left UE paresis HEMATOLOGICAL: negative SKIN: right plantar foot ulcer PSYCHIATRIC: Unremarkable All other review of systems found to be negative. PHYSICAL EXAMINATION: VITAL SIGNS: Please see below. GENERAL: Pleasant and cooperative. No acute distress. +left sided facial droop HEENT: PERRL. Extraocular movements intact. Clear conjunctiva CARDIOVASCULAR: Regular rate and rhythm. No murmurs, rubs, or gallops LUNGS: Clear to auscultation bilaterally. No wheezes. No rhonchi ABDOMEN: Soft, nontender, nondistended. Positive bowel sounds. Normal active bowel sounds NEUROLOGICAL: Alert and oriented times three. Cranial nerves II through XII grossly intact. Sensation grossly intact, no neglect appreciated (-) babinkski bilat, hyper-reflexia LUE 1/4 MAS elbow flexion tone EXTREMITIES: 5\5 strength right upper extremities. 2/5 strengthen right elbow flexors, extensors, and inspector plug seam, 1/5 wrist extension 5\5 strength right lower extremity. 4-/5 strength in left lower extremity. SKIN: right plantar hyperkeratotic lesion ASSESSMENT:73-year-old M with past medical history of CABG and DM who presents status post stroke. PLAN: 1. 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 CArdio: [facility] Aortic valve repair and CABG, most recent ECHO 09/2017 with normal LVEF- medicine consulted to assist in management -HTN: c/u BP meds adjust prn 4. Resp: encourage incentive spirometry 5. GI: pmh esophageal strictures s/p dilatation, will consider inhouse GI consult during hospital course- will start protonix 6. endo: pmh hypothyroidism, c/u synthroid, DM continue insulin and ISS, adjust prn 7. DVT ppx: heparin and TEDs 8. : monitor PVRs 9. Skin: cover right plantar lesion with optifoam-refer to podiatry 10. Dispo: TBD Allergies Coded Allergies: Contrast Media (Verified Allergy, Unknown, 03/29/13) daptomycin (Verified Allergy, Unknown, 01/24/19) Vital Signs Vital Signs Date Time Temp Pulse Resp B/P (MAP) Pulse Ox O2 Delivery O2 Flow Rate FiO2 01/31/19 14:00 97.1 64 19 131/60 (83) 96 Laboratory Data Labs 24H Laboratory Tests 2 01/30/19 19:51: Bedside Glucose (Misc Panel) 95 01/31/19 06:42: Bedside Glucose (Misc Panel) 112H 01/31/19 11:27: Bedside Glucose (Misc Panel) 167H 01/31/19 16:42: Bedside Glucose (Misc Panel) 83 Current Medications Current Medications Current Medications Acetaminophen (Tylenol Tab) 650 mg Q6HP PRN PO PAIN / FEVER; Start 01/24/19 at 12:15 Amlodipine Besylate (Norvasc) 10 mg DAILY PO Last administered on 01/31/19at 09:44; Start 01/25/19 at 09:00 Aspirin (Aspirin Chewable) 81 mg DAILY PO Last administered on 01/31/19at 09:44; Start 01/25/19 at 09:00 Atenolol (Tenormin) 100 mg DAILY PO ; Start 01/25/19 at 09:00; Stop 01/25/19 at 12:10; Status DC Atorvastatin Calcium (Lipitor) 40 mg QHS PO Last administered on 01/30/19at 20:32; Start 01/24/19 at 21:00 Bisacodyl (Dulcolax Suppository) 10 mg DAILYPRN PRN RI CONSTIPATION; Start 01/24/19 at 12:15 Clopidogrel Bisulfate (PLAVix) 75 mg DAILY PO Last administered on 01/31/19 09:44; Start 01/25/19 at 09:00 Cyanocobalamin (Vitamin B12) 500 mcg DAILY PO Last administered on 01/31/19 09:43; Start 01/25/19 at 09:00 Dextrose (Dextrose 50%) 25 ml ASDIRECTED PRN IV SEE LABEL COMMENTS; Start 01/24/19 at 12:15 Docusate Sodium (Colace) 100 mg BID PO Last administered on 01/31/19 09:44; Start 01/24/19 at 21:00 Fenofibrate (Tricor) 145 mg DAILY PO Last administered on 01/31/19 09:44; Start 01/25/19 at 09:00 Ferrous Sulfate (Ferrous Sulfate) 325 mg DAILY PO Last administered on 01/31/19 09:44; Start 01/25/19 at 09:00 Fish Oil (Delta-3 (1000mg)) 1 cap DAILY PO Last administered on 01/27/19 09:37; Start 01/25/19 at 09:00 Fluoxetine HCl (PROzac) 20 mg QHS PO Last administered on 01/30/19 20:32; Start 01/24/19 at 21:00 Folic Acid (Folic Acid) 1 mg DAILY PO Last administered on 01/31/19 09:43; Start 01/25/19 at 09:00 Glucagon (Glucagon) 1 mg ASDIRECTED PRN SC SEE LABEL COMMENTS; Start 01/24/19 at 12:15 Glucose (Glucose) 16 GM ASDIRECTED PRN PO SEE LABEL COMMENTS; Start 01/24/19 at 12:15 Heparin Sodium (Porcine) (Heparin) 5,000 units Q12H SQ Last administered on 01/31/19 09:43; Start 01/24/19 at 21:00 Home Med (Med Rec Complete!) ASDIRECTED XX ; Start 01/24/19 at 13:30; Stop 01/24/19 at 13:56; Status DC Hydrochlorothiazide (Hydrodiuril) 25 mg DAILY PO Last administered on 01/31/19 09:44; Start 01/25/19 at 13:00 Insulin Detemir (Levemir Insulin) 50 units DAILY SC Last administered on 01/31/19 09:46; Start 01/25/19 at 09:00 Insulin Human Lispro (HumaLOG INSULIN) SEE PROTOCOL TABLE AC SC Last administered on 01/31/19at 12:11; Start 01/24/19 at 12:00 Insulin Human Lispro (HumaLOG INSULIN) SEE PROTOCOL TABLE QHS SC ; Start 01/24/19 at 21:00 Levothyroxine Sodium (Synthroid) 112 mcg DAILY@06 PO Last administered on 01/31/19at 05:49; Start 01/25/19 at 06:00 Lidocaine (Lidoderm Patch) 1 patch DAILY TD ; Start 01/25/19 at 16:45; Stop 01/25/19 at 17:34; Status DC Lidocaine (Lidoderm Patch) 1 patch DAILY@2100 TD Last administered on 01/27/19at 20:54; Start 01/25/19 at 21:00 Lisinopril (Prinivil) 40 mg DAILY PO Last administered on 01/31/19at 09:44; Start 01/25/19 at 09:00 Magnesium Hydroxide (Milk Of Magnesia) 30 ml DAILYPRN PRN PO CONSTIPATION; Start 01/24/19 at 12:15 Metoprolol Succinate (TopROL XL) 12.5 mg DAILY PO Last administered on 01/31/19at 09:45; Start 01/26/19 at 09:00 Miscellaneous (Unresolved Clarification Entry) SEE LABEL COMMENTS DAILY XX ; Start 01/30/19 at 09:00; Stop 01/31/19 at 09:12; Status DC Non-Formulary Medication ( See Comment Field Below ) REMOVE LIDODERM PATCH DAILY XX Last administered on 01/28/19at 08:26; Start 01/26/19 at 09:00 Senna (Senokot) 1 tab QHS PO Last administered on 01/24/19at 20:34; Start 01/24/19 at 21:00 MILDRED JUÁREZ MD Jan 31, 2019 18:05
--- NOTE | 2019-01-31 18:08 | IPNPDOC ---
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 He was encouraged to take advantage of his time here and maximize on his motor recovery potential. REVIEW OF SYSTEMS: The following is a completed review of systems and has been reviewed. Review of systems otherwise unremarkable. PAIN: Patient self reports no pain EYES: No recent vision changes EARS, NOSE, & THROAT: +dysphagia CARDIOVASCULAR: Denies chest pain or palpitations PULMONARY: Denies shortness of breath GASTROINTESTINAL: Denies constipation/diarrhea GENITOURINARY: denies dysuria MUSCULOSKELETAL: left UE weakness NEUROLOGICAL: left UE paresis HEMATOLOGICAL: negative SKIN: right plantar foot ulcer PSYCHIATRIC: Unremarkable All other review of systems found to be negative. PHYSICAL EXAMINATION: VITAL SIGNS: Please see below. GENERAL: Pleasant and cooperative. No acute distress. +left sided facial droop HEENT: PERRL. Extraocular movements intact. Clear conjunctiva CARDIOVASCULAR: Regular rate and rhythm. No murmurs, rubs, or gallops LUNGS: Clear to auscultation bilaterally. No wheezes. No rhonchi ABDOMEN: Soft, nontender, nondistended. Positive bowel sounds. Normal active bowel sounds NEUROLOGICAL: Alert and oriented times three. Cranial nerves II through XII grossly intact. Sensation grossly intact, no neglect appreciated (-) babinkski bilat, hyper-reflexia LUE 1/4 MAS elbow flexion tone EXTREMITIES: 5\5 strength right upper extremities. 2/5 strengthen right elbow flexors, extensors, and senior hr manager, 1/5 wrist extension 5\5 strength right lower extremity. 4-/5 strength in left lower extremity. SKIN: right plantar hyperkeratotic lesion ASSESSMENT:73-year-old M with past medical history of CABG and DM who presents status post stroke. PLAN: 1. 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 CArdio: pmh Aortic valve repair and CABG, most recent ECHO 09/2017 with normal LVEF- medicine consulted to assist in management -HTN: c/u BP meds adjust prn 4. Resp: encourage incentive spirometry 5. GI: pmh esophageal strictures s/p dilatation, will consider inhouse GI consult during hospital course- c/u protonix 6. endo: pmh hypothyroidism, c/u synthroid, DM continue insulin and ISS, adjust prn 7. DVT ppx: heparin and TEDs 8. : monitor PVRs 9. Skin: cover right plantar lesion with optifoam-refer to podiatry 10. Dispo: TBD Allergies Coded Allergies: Contrast Media (Verified Allergy, Unknown, 03/29/13) daptomycin (Verified Allergy, Unknown, 01/24/19) Vital Signs Vital Signs Date Time Temp Pulse Resp B/P (MAP) Pulse Ox O2 Delivery O2 Flow Rate FiO2 01/31/19 14:00 97.1 64 19 131/60 (83) 96 Laboratory Data Labs 24H Laboratory Tests 2 01/30/19 19:51: Bedside Glucose (Misc Panel) 95 01/31/19 06:42: Bedside Glucose (Misc Panel) 112H 01/31/19 11:27: Bedside Glucose (Misc Panel) 167H 01/31/19 16:42: Bedside Glucose (Misc Panel) 83 Current Medications Current Medications Current Medications Acetaminophen (Tylenol Tab) 650 mg Q6HP PRN PO PAIN / FEVER; Start 01/24/19 at 12:15 Amlodipine Besylate (Norvasc) 10 mg DAILY PO Last administered on 01/31/19at 09:44; Start 01/25/19 at 09:00 Aspirin (Aspirin Chewable) 81 mg DAILY PO Last administered on 01/31/19at 09:44; Start 01/25/19 at 09:00 Atenolol (Tenormin) 100 mg DAILY PO ; Start 01/25/19 at 09:00; Stop 01/25/19 at 12:10; Status DC Atorvastatin Calcium (Lipitor) 40 mg QHS PO Last administered on 01/30/19at 20:32; Start 01/24/19 at 21:00 Bisacodyl (Dulcolax Suppository) 10 mg DAILYPRN PRN RI CONSTIPATION; Start 01/24/19 at 12:15 Clopidogrel Bisulfate (PLAVix) 75 mg DAILY PO Last administered on 01/31/19 09:44; Start 01/25/19 at 09:00 Cyanocobalamin (Vitamin B12) 500 mcg DAILY PO Last administered on 01/31/19 09:43; Start 01/25/19 at 09:00 Dextrose (Dextrose 50%) 25 ml ASDIRECTED PRN IV SEE LABEL COMMENTS; Start 01/09 12/28 at 12:15 Docusate Sodium (Colace) 100 mg BID PO Last administered on 01/31/19 09:44; Start 01/24/19 at 21:00 Fenofibrate (Tricor) 145 mg DAILY PO Last administered on 01/31/19 09:44; Start 01/25/19 at 09:00 Ferrous Sulfate (Ferrous Sulfate) 325 mg DAILY PO Last administered on 01/31/19 09:44; Start 01/25/19 at 09:00 Fish Oil ([place]-3 (1000mg)) 1 cap DAILY PO Last administered on 01/27/19 09:37; Start 01/25/19 at 09:00 Fluoxetine HCl (PROzac) 20 mg QHS PO Last administered on 01/30/19 20:32; Start 01/24/19 at 21:00 Folic Acid (Folic Acid) 1 mg DAILY PO Last administered on 01/31/19 09:43; Start 01/25/19 at 09:00 Glucagon (Glucagon) 1 mg ASDIRECTED PRN SC SEE LABEL COMMENTS; Start 01/24/19 at 12:15 Glucose (Glucose) 16 GM ASDIRECTED PRN PO SEE LABEL COMMENTS; Start 01/24/19 at 12:15 Heparin Sodium (Porcine) (Heparin) 5,000 units Q12H SQ Last administered on 01/31/19 09:43; Start 01/24/19 at 21:00 Home Med (Med Rec Complete!) ASDIRECTED XX ; Start 01/24/19 at 13:30; Stop 01/24/19 at 13:56; Status DC Hydrochlorothiazide (Hydrodiuril) 25 mg DAILY PO Last administered on 01/31/19 09:44; Start 01/25/19 at 13:00 Insulin Detemir (Levemir Insulin) 50 units DAILY SC Last administered on 01/31/19at 09:46; Start 01/25/19 at 09:00 Insulin Human Lispro (HumaLOG INSULIN) SEE PROTOCOL TABLE AC SC Last administered on 01/31/19at 12:11; Start 01/24/19 at 12:00 Insulin Human Lispro (HumaLOG INSULIN) SEE PROTOCOL TABLE QHS SC ; Start 01/24/19 at 21:00 Levothyroxine Sodium (Synthroid) 112 mcg DAILY@06 PO Last administered on 01/31/19at 05:49; Start 01/25/19 at 06:00 Lidocaine (Lidoderm Patch) 1 patch DAILY TD ; Start 01/25/19 at 16:45; Stop 01/25/19 at 17:34; Status DC Lidocaine (Lidoderm Patch) 1 patch DAILY@2100 TD Last administered on 01/27/19at 20:54; Start 01/25/19 at 21:00 Lisinopril (Prinivil) 40 mg DAILY PO Last administered on 01/31/19at 09:44; Start 01/25/19 at 09:00 Magnesium Hydroxide (Milk Of Magnesia) 30 ml DAILYPRN PRN PO CONSTIPATION; Start 01/24/19 at 12:15 Metoprolol Succinate (TopROL XL) 12.5 mg DAILY PO Last administered on 01/31/19at 09:45; Start 01/26/19 at 09:00 Miscellaneous (Unresolved Clarification Entry) SEE LABEL COMMENTS DAILY XX ; Start 01/30/19 at 09:00; Stop 01/31/19 at 09:12; Status DC Non-Formulary Medication ( See Comment Field Below ) REMOVE LIDODERM PATCH DAILY XX Last administered on 01/28/19at 08:26; Start 01/26/19 at 09:00 Senna (Senokot) 1 tab QHS PO Last administered on 01/24/19at 20:34; Start 01/24/19 at 21:00 MILDRED JUÁREZ MD Jan 31, 2019 18:08
[2019-01-31 19:54] VITALS: BP 145/70
[2019-01-31] MEDS: FLUoxetine 20 MG CAP PO SCH (20:49)
[2019-01-31] MEDS: SENNA 8.6 MG TAB (SENOKOT) PO SCH (20:50)
[2019-01-31] MEDS: LIDOCAINE 5% (LIDODERM) PATCH TD SCH (20:50)
[2019-01-31] MEDS: ATORVASTATIN 20 MG TAB PO SCH (20:50)
[2019-02-01 05:53] VITALS: BP 124/59
[2019-02-01] MEDS: LEVOTHYROXINE 112MCG TABLET (0.112MG) PO SCH (06:03)
[2019-02-01 07:08] LABS: CREATININE FOR GFR 3.64 MG/DL (0.70-1.30); GLOMERULAR FILTRATION RATE 17.5 (>42); POTASSIUM SERUM 5.1 MEQ/L (3.5-5.1)
[2019-02-01] MEDS: METOPROLOL SUCC *XL* 12.5MG PER 1/2 TAB (TopROL *XL*) PO SCH (07:52)
--- NOTE | 2019-02-01 08:26 | IPN ---
DATE OF SERVICE: 01/30/2019 Patient on acute rehab unit in acute ischemic infarct with resulting left-sided weakness. His vital signs remain stable. Continues on Levemir 50 units subcu daily, fingerstick blood sugar with sliding scale protocol at bedtime and before meals (a.c.). He has a history of an aortic pig valve replacement, which requires no anticoagulation. Deep venous thrombosis (DVT) prophylaxis continues utilizing heparin. He continues on Lipitor and Tricor for his hypercholesterolemia. He has history of hypothyroidism and is maintained on levothyroxine. He is progressing well. He had no acute complaints today. OBJECTIVE: Blood pressure 133/70, pulse 60, respirations 18, temperature 97.2, oxygen saturation 94% on room air. The patient is alert and oriented times three. Pupils equal and react to light. Extraocular movements (EOMs) intact. Pharynx, tongue, and gums pink and moist. Tongue is midline. Neck is supple without lymphadenopathy. No thyromegaly. No goiter. Carotids 2+ without bruit. Chest: Clear to auscultation without wheeze or retraction. Heart is regular. Abdomen: Benign. Bowel sounds positive. Genitourinary ()/rectal: Not done. Extremities: No cyanosis, clubbing, or edema. Decreased strength left lower leg and left upper extremity. Peripheral pulses equal and palpable bilaterally. Skin is warm and dry. 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 Management per acute rehab unit. Continue physical therapy (PT), occupational therapy (OT), aspirin, Plavix. Insulin-dependent diabetes, type 2. Continue sliding scale and Levemir. Monitor blood sugars. Adjust if necessary. Hypertension, stable. Hypercholesterolemia. Continue Lipitor and Tricor. Aortic pig valve replacement. Anticoagulation not indicated. Hypothyroidism. Continue levothyroxine. Deep venous thrombosis prophylaxis with heparin. No acute medical issues.
[2019-02-01] MEDS: **NOTE PATIENT COMMENT** MISC XX SCH (09:00)
[2019-02-01] MEDS: OMEGA-3 1000MG CAPSULE PO SCH (09:00)
[2019-02-01] MEDS: HEPARIN SOD (PORCINE) 5000 UNITS/ML VIAL SQ SCH ×2 (09:10→21:15)
[2019-02-01] MEDS: LEVEMIR (INSULIN DETEMIR) 1 UNITS/0.01ML SC SCH (09:11)
[2019-02-01] MEDS: CLOPIDOGREL 75 MG TAB PO SCH (09:11)
[2019-02-01] MEDS: FOLIC ACID 1 MG TAB PO SCH (09:11)
[2019-02-01] MEDS: HumaLOG INSULIN (NovoLOG) PER UNIT SC SCH ×4 (09:11→21:00)
[2019-02-01] MEDS: FENOFIBRATE 145 MG TAB (TRICOR) PO SCH (09:11)
[2019-02-01] MEDS: LISINOPRIL 40 MG TAB PO SCH (09:12)
[2019-02-01] MEDS: ASPIRIN 81 MG CHEW TABLET PO SCH (09:12)
[2019-02-01] MEDS: hydroCHLOROthiazide 25 MG TAB PO SCH (09:12)
[2019-02-01] MEDS: DOCUSATE SODIUM 100 MG CAP PO SCH ×2 (09:12→21:00)
[2019-02-01] MEDS: amLODIPine 10 MG TAB PO SCH (09:12)
[2019-02-01] MEDS: FERROUS SULFATE 325MG TAB PO SCH (09:12)
[2019-02-01] MEDS: CYANOCOBALAMIN 500 MCG TAB PO SCH (09:13)
[2019-02-01] MEDS ORDERED: NS 1,000 ML IV ONE (10:15)
--- NOTE | 2019-02-01 10:17 | IPNPDOC ---
PM&R Progress Note DATE OF SERVICE: Feb 01, 2019 Electrocardiographic Technician Progress Note Subjective: Patient seen in his room stating his right posterior thigh cramps up in therapy limiting his distances. He denies feeling depressed. REVIEW OF SYSTEMS: The following is a completed review of systems and has been reviewed. Review of systems otherwise unremarkable. PAIN: Patient self reports no pain EYES: No recent vision changes EARS, NOSE, & THROAT: +dysphagia CARDIOVASCULAR: Denies chest pain or palpitations PULMONARY: Denies shortness of breath GASTROINTESTINAL: Denies constipation/diarrhea GENITOURINARY: denies dysuria MUSCULOSKELETAL: left UE weakness NEUROLOGICAL: left UE paresis HEMATOLOGICAL: negative SKIN: right plantar foot ulcer PSYCHIATRIC: Unremarkable All other review of systems found to be negative. PHYSICAL EXAMINATION: VITAL SIGNS: Please see below. GENERAL: Pleasant and cooperative. No acute distress. +left sided facial droop HEENT: PERRL. Extraocular movements intact. Clear conjunctiva CARDIOVASCULAR: Regular rate and rhythm. No murmurs, rubs, or gallops LUNGS: Clear to auscultation bilaterally. No wheezes. No rhonchi ABDOMEN: Soft, nontender, nondistended. Positive bowel sounds. Normal active bowel sounds NEUROLOGICAL: Alert and oriented times three. Cranial nerves II through XII grossly intact. Sensation grossly intact, no neglect appreciated (-) babinkski bilat, hyper-reflexia LUE 1/4 MAS elbow flexion tone EXTREMITIES: 5\5 strength right upper extremities. 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 4-/5 strength in left lower extremity. SKIN: right plantar hyperkeratotic lesion ASSESSMENT:73-year-old M with past medical history of CABG and DM who presents status post stroke. PLAN: 1. 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 CArdio: pmh Aortic valve repair and CABG, most recent ECHO 09/2017 with normal LVEF- medicine consulted to assist in management -HTN: c/u beta-aliyah, HCTZ and KATERYNA-I on hold for worsening renal function, getting IVF 4. Resp: encourage incentive spirometry 5. GI: pmh esophageal strictures s/p dilatation, will consider inhouse GI consult during hospital course- c/u protonix-stable 6. endo: pmh hypothyroidism, c/u synthroid, DM continue insulin and ISS, adjust prn 7. DVT ppx: heparin and TEDs 8. : monitor PVRs 9. 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 Skin: cover right plantar lesion with optifoam-refer to podiatry 10. Pain: will start low dose gabapentin for right thigh cramping, hold statin to see if this is causing myositis, and start Mg supplement 10. Dispo: TBD Allergies Coded Allergies: Contrast Media (Verified Allergy, Unknown, 03/29/13) daptomycin (Verified Allergy, Unknown, 01/24/19) Vital Signs Vital Signs Date Time Temp Pulse Resp B/P (MAP) Pulse Ox O2 Delivery O2 Flow Rate FiO2 02/01/19 09:12 58 124/59 02/01/19 05:53 97.9 18 96 Laboratory Data CBC/BMP Laboratory Tests 02/01/19 06:12 Calcium Level 9.0 Labs 24H Laboratory Tests 2 01/31/19 11:27: Bedside Glucose (Misc Panel) 167H 01/31/19 16:42: Bedside Glucose (Misc Panel) 83 01/31/19 19:43: Bedside Glucose (Misc Panel) 94 02/01/19 06:10: Bedside Glucose (Misc Panel) 121H 02/01/19 06:12: Anion Gap 6L, Glomerular Filtration Rate 17.5L, Blood Urea Nitrogen 79H, Creatinine 3.64H, Sodium Level 140, Potassium Level 5.1, Chloride Level 112H, Carbon Dioxide Level 22, Calcium Level 9.0 Current Medications Current Medications Current Medications Acetaminophen (Tylenol Tab) 650 mg Q6HP PRN PO PAIN / FEVER; Start 01/24/19 at 12:15 Amlodipine Besylate (Norvasc) 10 mg DAILY PO Last administered on 02/01/19 09:12; Start 01/25/19 at 09:00 Aspirin (Aspirin Chewable) 81 mg DAILY PO Last administered on 02/01/19 09:12; Start 01/25/19 at 09:00 Atenolol (Tenormin) 100 mg DAILY PO ; Start 01/25/19 at 09:00; Stop 01/25/19 at 12:10; Status DC Atorvastatin Calcium (Lipitor) 40 mg QHS PO Last administered on 01/31/19 20:50; Start 01/24/19 at 21:00 Bisacodyl (Dulcolax Suppository) 10 mg DAILYPRN PRN SC CONSTIPATION; Start 01/24/19 at 12:15 Clopidogrel Bisulfate (PLAVix) 75 mg DAILY PO Last administered on 02/01/19 09:11; Start 01/25/19 at 09:00 Cyanocobalamin (Vitamin B12) 500 mcg DAILY PO Last administered on 02/01/19 09:13; Start 01/25/19 at 09:00 Dextrose (Dextrose 50%) 25 ml ASDIRECTED PRN IV SEE LABEL COMMENTS; Start 01/24/19 at 12:15 Docusate Sodium (Colace) 100 mg BID PO Last administered on 02/01/19 09:12; Start 01/24/19 at 21:00 Fenofibrate (Tricor) 145 mg DAILY PO Last administered on 02/01/19 09:11; Start 01/25/19 at 09:00 Ferrous Sulfate (Ferrous Sulfate) 325 mg DAILY PO Last administered on 09:12; Start 01/25/19 at 09:00 Fish Oil (Swansea-3 (1000mg)) 1 cap DAILY PO Last administered on 01/27/19 09:37; Start 01/25/19 at 09:00 Fluoxetine HCl (PROzac) 20 mg QHS PO Last administered on 01/30/19 20:32; Start 01/24/19 at 21:00; Stop 01/31/19 at 17:56; Status DC Fluoxetine HCl (PROzac) 40 mg QHS PO Last administered on 01/31/19at 20:49; Start 01/31/19 at 21:00 Folic Acid (Folic Acid) 1 mg DAILY PO Last administered on 02/01/19at 09:11; Start 01/25/19 at 09:00 Glucagon (Glucagon) 1 mg ASDIRECTED PRN SC SEE LABEL COMMENTS; Start 01/24/19 at 12:15 Glucose (Glucose) 16 GM ASDIRECTED PRN PO SEE LABEL COMMENTS; Start 01/24/19 at 12:15 Heparin Sodium (Porcine) (Heparin) 5,000 units Q12H SQ Last administered on 02/01/19at 09:10; Start 01/24/19 at 21:00 Home Med (Med Rec Complete!) ASDIRECTED XX ; Start 01/24/19 at 13:30; Stop 01/24/19 at 13:56; Status DC Hydrochlorothiazide (Hydrodiuril) 25 mg DAILY PO Last administered on 02/01/19at 09:12; Start 01/25/19 at 13:00; Stop 02/01/19 at 10:15; Status DC Insulin Detemir (Levemir Insulin) 45 units DAILY SC Last administered on 02/01/19at 09:11; Start 02/01/19 at 09:00 Insulin Detemir (Levemir Insulin) 50 units DAILY SC Last administered on 01/31/19at 09:46; Start 01/25/19 at 09:00; Stop 01/31/19 at 17:56; Status DC Insulin Human Lispro (HumaLOG INSULIN) SEE PROTOCOL TABLE AC SC Last administered on 02/01/19at 09:11; Start 01/24/19 at 12:00 Insulin Human Lispro (HumaLOG INSULIN) SEE PROTOCOL TABLE QHS SC ; Start 01/24/19 at 21:00 Levothyroxine Sodium (Synthroid) 112 mcg DAILY@06 PO Last administered on 02/01/19at 06:03; Start 01/25/19 at 06:00 Lidocaine (Lidoderm Patch) 1 patch DAILY TD ; Start 01/25/19 at 16:45; Stop 01/25/19 at 17:34; Status DC Lidocaine (Lidoderm Patch) 1 patch DAILY@2100 TD Last administered on 01/27/19at 20:54; Start 01/25/19 at 21:00 Lisinopril (Prinivil) 40 mg DAILY PO Last administered on 02/01/19at 09:12; Start 01/25/19 at 09:00; Stop 02/01/19 at 10:15; Status DC Magnesium Hydroxide (Milk Of Magnesia) 30 ml DAILYPRN PRN PO CONSTIPATION; Start 01/24/19 at 12:15 Metoprolol Succinate (TopROL XL) 12.5 mg DAILY PO Last administered on 01/31/19at 09:45; Start 01/26/19 at 09:00 Miscellaneous (Unresolved Clarification Entry) SEE LABEL COMMENTS DAILY XX ; Start 01/30/19 at 09:00; Stop 01/31/19 at 09:12; Status DC Non-Formulary Medication ( See Comment Field Below ) REMOVE LIDODERM PATCH DAILY XX Last administered on 01/28/19at 08:26; Start 01/26/19 at 09:00 Senna (Senokot) 1 tab QHS PO Last administered on 01/24/19at 20:34; Start 01/24/19 at 21:00 MILDRED JUÁREZ MD Feb 01, 2019 10:17
[2019-02-01 14:00] VITALS: BP 122/82
[2019-02-01] MEDS: GABAPENTIN 100 MG CAP PO SCH (17:23)
[2019-02-01 21:00] VITALS: BP 131/76
[2019-02-01] MEDS: SENNA 8.6 MG TAB (SENOKOT) PO SCH (21:00)
[2019-02-01] MEDS: LIDOCAINE 5% (LIDODERM) PATCH TD SCH (21:00)
[2019-02-01] MEDS: FLUoxetine 20 MG CAP PO SCH (21:15)
[2019-02-01] MEDS: MAGNESIUM OXIDE 400 MG TAB (MAG-OX) PO SCH (21:15)
[2019-02-02 06:00] VITALS: BP 134/67
[2019-02-02] MEDS: LEVOTHYROXINE 112MCG TABLET (0.112MG) PO SCH (06:14)
[2019-02-02 06:28] LABS: HEMATOCRIT 37.1 % (42.0-52.0); HEMOGLOBIN 11.9 g/dl (13.5-17.5); MEAN CORPUSCULAR HEMOGLOBIN 28.5 pg (27.0-33.0); MEAN CORPUSCULAR HGB CONC 32.1 g/dl (32.0-36.5); PLATELET COUNT, AUTOMATED 118 10^3/uL (150-450); RED BLOOD COUNT 4.17 10^6/uL (4.30-6.10); WHITE BLOOD COUNT 4.7 10^3/uL (4.0-10.0)
[2019-02-02 06:47] LABS: CREATININE FOR GFR 3.8 MG/DL (0.70-1.30); GLOMERULAR FILTRATION RATE 16.6 (>42); POTASSIUM SERUM 5.2 MEQ/L (3.5-5.1)
[2019-02-02] MEDS: HumaLOG INSULIN (NovoLOG) PER UNIT SC SCH ×4 (08:45→21:00)
[2019-02-02] MEDS: GABAPENTIN 100 MG CAP PO SCH (08:46)
[2019-02-02] MEDS: HEPARIN SOD (PORCINE) 5000 UNITS/ML VIAL SQ SCH ×2 (08:46→20:44)
[2019-02-02] MEDS: LEVEMIR (INSULIN DETEMIR) 1 UNITS/0.01ML SC SCH (08:46)
[2019-02-02] MEDS: OMEGA-3 1000MG CAPSULE PO SCH ×2 (08:47→08:50)
[2019-02-02] MEDS: FERROUS SULFATE 325MG TAB PO SCH (08:47)
[2019-02-02] MEDS: CLOPIDOGREL 75 MG TAB PO SCH (08:47)
[2019-02-02] MEDS: MAGNESIUM OXIDE 400 MG TAB (MAG-OX) PO SCH ×2 (08:47→20:45)
[2019-02-02] MEDS: CYANOCOBALAMIN 500 MCG TAB PO SCH (08:47)
[2019-02-02] MEDS: ASPIRIN 81 MG CHEW TABLET PO SCH (08:47)
[2019-02-02] MEDS: FENOFIBRATE 145 MG TAB (TRICOR) PO SCH (08:47)
[2019-02-02] MEDS: FOLIC ACID 1 MG TAB PO SCH (08:47)
[2019-02-02] MEDS: METOPROLOL SUCC *XL* 12.5MG PER 1/2 TAB (TopROL *XL*) PO SCH (08:48)
[2019-02-02] MEDS: DOCUSATE SODIUM 100 MG CAP PO SCH ×2 (08:48→20:32)
[2019-02-02] MEDS: **NOTE PATIENT COMMENT** MISC XX SCH (08:48)
[2019-02-02] MEDS: amLODIPine 10 MG TAB PO SCH (08:48)
--- NOTE | 2019-02-02 13:02 | CR ---
DATE OF CONSULTATION: 02/02/2019 REQUESTING PHYSICIAN: Dr. Palmer REASON FOR CONSULTATION: Acute kidney injury superimposed on chronic kidney disease stage IV CHIEF COMPLAINT: The patient was admitted to rehab on January 24, 2019 after a stroke. HISTORY OF PRESENT ILLNESS: Dereck Yañez is a 73-year-old made with a past medical history of chronic kidney disease stage III/early stage IV secondary to biopsy-proven diabetic nephropathy, diabetes mellitus type 2, chronic uncontrolled hypertension, history of coronary artery disease, multiple other comorbidities, as mentioned below. He was at work Wednesday on January 19, 2019 and he suddenly had slurred speech, weakness of the left arm, left facial droop and inability to walk. He was taken by helicopter from [place] to [facility] where he was found to have elevated blood pressures in the 200s and acute ischemic stroke. He got the TPA and later on MRI showed acute stroke within the right hernandez radiata and protamine. He was started on dual antiplatelet therapy and for further management of his stroke he was admitted to acute rehab unit in [place] on January 24, 2019. The patient's creatinine on admission was 2.5, which has bumped up to 3.8 today. Nephrology service was called for further help in the management of this patient with acute kidney injury superimposed on chronic kidney disease stage IV. I saw and evaluated the patient today morning at the bedside in the rehab unit. He was sitting on the sofa. He denies any active complaints. He is afebrile and hemodynamically stable. The patient was getting lisinopril full dose of 40 mg daily, it was stopped yesterday. PAST MEDICAL HISTORY: Past medical history of diabetic nephropathy biopsy proven, chronic a kidney disease stage III to early stage IV, baseline creatinine fluctuates between 2 to 2.5, history of diabetes mellitus type 2, history of chronic uncontrolled hypertension, coronary artery disease, history of myocardial infarction in the past, carotid artery disease. PAST SURGICAL HISTORY Status post coronary artery bypass grafting, history of aortic valve replacement, bioprosthetic, history of cataract surgery, right big toe and fourth toe removal, history of esophageal dilatation in the past and status post ultrasound guided renal biopsy. ALLERGIES: He is allergic to CONTRAST MEDIA and DAPTOMYCIN. FAMILY HISTORY: No significant family history of end-stage renal disease requiring hemodialysis. His son had colon cancer. SOCIAL HISTORY: The patient denies any smoking, illicit drug abuse or alcohol abuse. 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 REVIEW OF SYSTEMS CONSTITUTIONAL: He denies any fevers or chills. Eyes: He denies any blurry vision, double vision. ENT: Denies any dysphagia or odynophagia. Cardiovascular: Denies any chest pain, palpitation. Respiratory: Denies any shortness of breath. Gastrointestinal: Denies any nausea, vomiting. Genitourinary: Denies any dysuria or hematuria. Musculoskeletal: He does report left arm weakness. 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 Skin: Denies any rashes or ulcers. Hematology/Oncology: He denies any easy bleeding or bruising. Endocrine: He reports a history of diabetes mellitus type 2. Psychiatric: He denies any depression or anxiety. All other review of systems is negative. PHYSICAL EXAMINATION: General: The patient is awake, alert, oriented times three, sitting up in the sofa. Vital signs: Temperature is 98 degrees Fahrenheit, blood pressure 134/67, pulse is 67, respiratory of 18, saturating 97% on room air. Head and neck exam: Extraocular muscles intact. Pupils equally round and reactive to light. Mucous membranes are moist. There is slight left-sided facial droop. Neck is supple. There is no jugular venous distention (JVD). Cardiovascular: S1, S2. Regular rate. No edema of the bilateral lower extremities. Respiratory: Chest is clear to auscultation bilaterally. Bilateral equal air entry. No rales or rhonchi. Abdomen: Soft. Positive bowel sounds. Nontender. No organomegaly. Musculoskeletal: No clubbing or cyanosis. Pulses are 2+. 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 Power is 1/5. Skin: No rashes or ulcers. Psychiatric: Normal mood and affect. LABORATORY REVIEW: CBC showed WBC of 4.7, hemoglobin 11.9, platelets of 118. BMP showed sodium 141, potassium 5.2, chloride 112, bicarbonate 23, BUN 81, creatinine is 3.8, calcium is 9. CURRENT MEDICATIONS: The patient's medications include: - Tylenol as needed - amlodipine 10 mg daily - aspirin 81 mg daily - Lipitor 40 mg at night, which was stopped yesterday - Plavix 75 mg daily - vitamin B12 500 mcg by mouth daily - Colace 100 mg by mouth twice a day - fenofibrate 145 mg by mouth daily, which I have stopped now - iron tablet 325 mg by mouth daily - fluoxetine 40 mg at night - folic acid 1 mg daily - gabapentin 200 mg by mouth daily - Levemir 45 units subcutaneous daily - insulin sliding scale - levothyroxine 112 mcg by mouth daily - magnesium oxide 400 mg by mouth twice a day - metoprolol 12.5 mg by mouth daily - Senna tablet 1 tablet at night ASSESSMENT: 73-year-old male with history of coronary artery disease, hypertension, diabetes mellitus type 2, chronic kidney disease stage III to early stage IV admitted this time after an acute CVA and left arm weakness. Nephrology service following the patient for acute renal failure superimposed on chronic kidney disease stage IV and hypertension with hyperkalemia. PLAN: 1. Acute kidney injury superimposed on chronic kidney disease stage IV. The patient's creatinine on admission was 2.5. He was getting lisinopril 40 mg daily, which has been stopped now. I believe most likely secondary to use of lisinopril. The patient was also on fenofibrate, which cannot be given with a GFR of less than 35, fenofibrate is also being stopped. No need of IV fluid hydration. The patient's volume status is optimal. Hopefully, the patient's renal function would improve back to baseline over the next 24 to 48 hours. The patient has a history of diabetic nephropathy, which is biopsy-proven. 2. Hypertension with chronic kidney disease. The patient's blood pressure is optimal at this time. He is on amlodipine 10 mg daily and metoprolol at 12.5 mg daily. However, his lisinopril was stopped yesterday, and I think his blood pressure is going to go up by tomorrow. If his bed blood pressures are higher than target then I will start the patient on hydralazine, which he has received in the past as outpatient as well. 3. Acute CVA with left-sided weakness. The patient is currently on aspirin and Plavix, which can be continued. Blood pressure management is as mentioned below. He is not a candidate for use of Tricor at this time because of acute renal failure. It is okay to use statin. If the patient cannot tolerate statins, then he needs to start injectable. 4. Diabetes mellitus type 2. Okay to continue current dose of Levemir and insulin sliding scale. He is not a candidate for use of metformin at this time. Avoid use of KATERYNA inhibitors or angiotensin receptor blockers in this patient with worsening renal function. 5. Hypothyroidism. Okay to continue current dose of levothyroxine 112 mcg by mouth daily. 6. Hyperkalemia. Potassium is 5.2, which is slightly elevated. The patient was using KATERYNA inhibitors. Potassium level is expected to improve by tomorrow since lisinopril has already been stopped. 7. Anemia in chronic kidney disease. Hemoglobin is 11.9, which is optimal. The patient is on oral iron as well. No need of ALISHA administration since hemoglobin is above 11. Thank you for involving me in the care of this patient. I shall be happy to follow the patient along with you tomorrow morning.
[2019-02-02 14:00] VITALS: BP 123/60
--- NOTE | 2019-02-02 14:05 | IPNPDOC ---
Text Note Date of Service The patient was seen on 02/02/19. NOTE Subjective: Up to chair at bedside at time of assessment. Denies chest pain, sh ortness of breath, reports left upper extremity weakness, Objective: GENERAL: NAD SKIN : Warm, dry intact HEENT: Atraumatic, normocephalic, PERRL, moist mucous membrane CARDIOVASCULAR: Regular rate and rhythm, S1S2, no JVD, no edema, distal pulses + palpable RESP: CTAB, no accessory muscle use noted ABDOMEN: BS+ non distended non tender MS: no joint deformities NEURO: Alert and oriented x 3, right upper extremity weakness PSYCH: no anxiety or agitation, appropriate mood and affect. Right hernandez radiata/internal capsule ischemic infarct -Presenting with facial droop and left upper extremity paralysis -Rehabilitation by primary team -improving Diabetes mellitus type 2. -Finger stick checks prior to meals and at bedtime -Coverage with insulin per sliding scale Hypothyroidism -Continue Synthroid Hypertension -Blood pressure is currently controlled -Continue to monitor per unit protocol Hyperlipidemia -Continue statin therapy DVT prophylaxis -Heparin subcutaneous every 12 VS,Fishbone, I+O VS, Fishbone, I+O Laboratory Tests 02/02/19 05:56 Red Blood Count 4.17 L, Mean Corpuscular Volume 89.0, Mean Corpuscular Hemoglobin 28.5, Mean Corpuscular Hemoglobin Concent 32.1, Red Cell Distribution Width 15.1 H, Calcium Level 9.0 Vital Signs Date Time Temp Pulse Resp B/P (MAP) Pulse Ox O2 Delivery O2 Flow Rate FiO2 02/02/19 08:48 67 134/67 02/02/19 06:00 98.0 18 97 I&O- Last 24 Hours up to 6 AM 02/02/19 05:59 Intake Total 1390 ml Output Total 400 ml Balance 990 ml LESLIE MAYBERRYP Feb 02, 2019 14:05
[2019-02-02] MEDS ORDERED: SOD POLYSTYRENE SULFONATE SUSP 15 GM/60 ML UD PO ONE (15:00)
[2019-02-02] MEDS ORDERED: OXYMETAZOLINE NASAL SPRAY (AFRIN) PRN (16:00)
[2019-02-02 20:00] VITALS: BP 101/58
[2019-02-02] MEDS: SENNA 8.6 MG TAB (SENOKOT) PO SCH (20:32)
[2019-02-02] MEDS: FLUoxetine 20 MG CAP PO SCH (20:45)
[2019-02-03] MEDS: LEVOTHYROXINE 112MCG TABLET (0.112MG) PO SCH (05:59)
[2019-02-03 06:00] VITALS: BP 123/58
[2019-02-03 08:33] VITALS: BP 123/58
[2019-02-03 08:44] LABS: ALBUMIN 3.4 GM/DL (3.2-5.2); CALCIUM LEVEL 8.5 MG/DL (8.8-10.2); CREATININE FOR GFR 3.99 MG/DL (0.70-1.30); GLOMERULAR FILTRATION RATE 15.7 (>42); PHOSPHORUS LEVEL 4.5 MG/DL (2.5-4.9); POTASSIUM SERUM 4.6 MEQ/L (3.5-5.1)
[2019-02-03] MEDS: CLOPIDOGREL 75 MG TAB PO SCH (08:52)
[2019-02-03] MEDS: ASPIRIN 81 MG CHEW TABLET PO SCH (08:52)
[2019-02-03] MEDS: FERROUS SULFATE 325MG TAB PO SCH (08:52)
[2019-02-03] MEDS: CYANOCOBALAMIN 500 MCG TAB PO SCH (08:52)
[2019-02-03] MEDS: MAGNESIUM OXIDE 400 MG TAB (MAG-OX) PO SCH ×2 (08:52→21:25)
[2019-02-03] MEDS: FOLIC ACID 1 MG TAB PO SCH (08:53)
[2019-02-03] MEDS: GABAPENTIN 100 MG CAP PO SCH (08:53)
[2019-02-03] MEDS: amLODIPine 10 MG TAB PO SCH (08:54)
[2019-02-03] MEDS: METOPROLOL SUCC *XL* 12.5MG PER 1/2 TAB (TopROL *XL*) PO SCH (08:54)
[2019-02-03] MEDS: LEVEMIR (INSULIN DETEMIR) 1 UNITS/0.01ML SC SCH (08:55)
[2019-02-03] MEDS: HEPARIN SOD (PORCINE) 5000 UNITS/ML VIAL SQ SCH ×2 (08:55→21:25)
[2019-02-03] MEDS: **NOTE PATIENT COMMENT** MISC XX SCH (08:55)
[2019-02-03] MEDS: DOCUSATE SODIUM 100 MG CAP PO SCH ×2 (08:56→21:00)
[2019-02-03] MEDS: HumaLOG INSULIN (NovoLOG) PER UNIT SC SCH ×4 (08:56→21:00)
--- NOTE | 2019-02-03 10:27 | IPNPDOC ---
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 He was encouraged to make the most out his time here and push through his fatigue. REVIEW OF SYSTEMS: The following is a completed review of systems and has been reviewed. Review of systems otherwise unremarkable. PAIN: Patient self reports no pain EYES: No recent vision changes EARS, NOSE, & THROAT: +dysphagia CARDIOVASCULAR: Denies chest pain or palpitations PULMONARY: Denies shortness of breath GASTROINTESTINAL: Denies constipation/diarrhea GENITOURINARY: denies dysuria MUSCULOSKELETAL: left UE weakness NEUROLOGICAL: left UE paresis HEMATOLOGICAL: negative SKIN: right plantar foot ulcer PSYCHIATRIC: Unremarkable All other review of systems found to be negative. PHYSICAL EXAMINATION: VITAL SIGNS: Please see below. GENERAL: Pleasant and cooperative. No acute distress. +left sided facial droop HEENT: PERRL. Extraocular movements intact. Clear conjunctiva CARDIOVASCULAR: Regular rate and rhythm. No murmurs, rubs, or gallops LUNGS: Clear to auscultation bilaterally. No wheezes. No rhonchi ABDOMEN: Soft, nontender, nondistended. Positive bowel sounds. Normal active bowel sounds NEUROLOGICAL: Alert and oriented times three. Cranial nerves II through XII grossly intact. Sensation grossly intact, no neglect appreciated (-) babinkski bilat, hyper-reflexia LUE 1/4 MAS elbow flexion tone EXTREMITIES: 5\5 strength right upper extremities. 2/5 strengthen right elbow flexors, extensors, and psychologist experimental, 1/5 wrist extension 5\5 strength right lower extremity. 4-/5 strength in left lower extremity. SKIN: right plantar hyperkeratotic lesion ASSESSMENT:73-year-old M with past medical history of CABG and DM who presents status post stroke. PLAN: 1. Rehab: PT- advance gait and improve dynamic balance- able to ambulate further and propel wheelchair OT- strengthen LUE and stretch to prevent shoulder, elbow, wrist contractures DIRECTOR OF ARCHITECTURE: advance diet and assess for cognitive deficits- upgraded to level 3 diet 2. 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 CArdio: pmh Aortic valve repair and CABG, most recent ECHO 09/2017 with normal LVEF- medicine consulted to assist in management -HTN: c/u beta-aliyah, HCTZ and KATERYNA-I on hold for worsening renal function 4. Resp: encourage incentive spirometry 5. GI: pmh esophageal strictures s/p dilatation, will consider inhouse GI consult during hospital course- c/u protonix- -episode of difficulty swallowing solids, bedside eval per DIRECTOR OF ARCHITECTURE stable, will order Modified Barium study and esophagram 6. endo: pmh hypothyroidism, c/u synthroid, DM continue insulin and ISS, adjust prn 7. DVT ppx: heparin and TEDs 8. : monitor PVRs 9. 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 Skin: cover right plantar lesion with optifoam-refer to podiatry 10. Pain: continue low dose gabapentin for right thigh cramping, c/u to hold statin to see if this is causing myositis, ac/u Mg supplement 10. Dispo: TBD Allergies Coded Allergies: Contrast Media (Verified Allergy, Unknown, 03/29/13) daptomycin (Verified Allergy, Unknown, 01/24/19) Vital Signs Vital Signs Date Time Temp Pulse Resp B/P (MAP) Pulse Ox O2 Delivery O2 Flow Rate FiO2 02/03/19 08:54 62 123/58 02/03/19 06:00 98.0 14 96 Laboratory Data CBC/BMP Laboratory Tests 02/03/19 07:37 Anion Gap 8 Labs 24H Laboratory Tests 2 02/02/19 12:02: Bedside Glucose (Misc Panel) 144H 02/02/19 17:23: Bedside Glucose (Misc Panel) 153H 02/02/19 20:42: Bedside Glucose (Misc Panel) 155H 02/03/19 06:28: Bedside Glucose (Misc Panel) 130H 02/03/19 07:37: Blood Urea Nitrogen 80H, Creatinine 3.99H, Sodium Level 141, Potassium Level 4.6, Chloride Level 111H, Carbon Dioxide Level 22, Anion Gap 8, Glomerular Filtration Rate 15.7L, Calcium Level 8.5L, Phosphorus Level 4.5, Albumin 3.4 Current Medications Current Medications Current Medications Medications (Trade) Dose Ordered Sig/Natividad Route PRN Reason Start Time Stop Time Status Last Admin Dose Admin Acetaminophen (Tylenol Tab) 650 mg Q6HP PRN PO PAIN / FEVER 01/24/19 12:15 Amlodipine Besylate (Norvasc) 10 mg DAILY PO 01/25/19 09:00 02/03/19 08:54 Aspirin (Aspirin Chewable) 81 mg DAILY PO 01/25/19 09:00 02/03/19 08:52 Atenolol (Tenormin) 100 mg DAILY PO 01/25/19 09:00 01/25/19 12:10 DC Atorvastatin Calcium (Lipitor) 40 mg QHS PO 01/24/19 21:00 02/01/19 15:44 DC 01/31/19 20:50 Bisacodyl (Dulcolax Suppository) 10 mg DAILYPRN PRN [place] CONSTIPATION 01/24/19 12:15 Clopidogrel Bisulfate (PLAVix) 75 mg DAILY PO 01/25/19 09:00 02/03/19 08:52 Cyanocobalamin (Vitamin B12) 500 mcg DAILY PO 01/25/19 09:00 02/03/19 08:52 Dextrose (Dextrose 50%) 25 ml ASDIRECTED PRN IV SEE LABEL COMMENTS 01/24/19 12:15 Docusate Sodium (Colace) 100 mg BID PO 01/24/19 21:00 02/01/19 09:12 Fenofibrate (Tricor) 145 mg DAILY PO 01/25/19 09:00 02/02/19 11:32 DC 02/02/19 08:47 Ferrous Sulfate (Ferrous Sulfate) 325 mg DAILY PO 01/25/19 09:00 02/03/19 08:52 Fish Oil ([place]-3 (1000mg)) 1 cap DAILY PO 01/25/19 09:00 02/02/19 11:36 DC 01/27/19 09:37 Fluoxetine HCl (PROzac) 20 mg QHS PO 01/24/19 21:00 01/31/19 17:56 DC 01/30/19 20:32 Fluoxetine HCl (PROzac) 40 mg QHS PO 01/31/19 21:00 02/02/19 20:45 Folic Acid (Folic Acid) 1 mg DAILY PO 01/25/19 09:00 02/03/19 08:53 Gabapentin (Neurontin) 200 mg DAILY PO 02/01/19 09:00 02/03/19 08:53 Glucagon (Glucagon) 1 mg ASDIRECTED PRN SC SEE LABEL COMMENTS 01/24/19 12:15 Glucose (Glucose) 16 GM ASDIRECTED PRN PO SEE LABEL COMMENTS 01/24/19 12:15 Heparin Sodium (Porcine) (Heparin) 5,000 units Q12H SQ 01/24/19 21:00 02/03/19 08:55 Home Med (Med Rec Complete!) ASDIRECTED XX 01/24/19 13:30 01/24/19 13:56 DC Hydrochlorothiazide (Hydrodiuril) 25 mg DAILY PO 01/25/19 13:00 02/01/19 10:15 DC 02/01/19 09:12 Insulin Detemir (Levemir Insulin) 45 units DAILY SC 02/01/19 09:00 02/03/19 08:55 Insulin Detemir (Levemir Insulin) 50 units DAILY SC 01/25/19 09:00 01/31/19 17:56 DC 01/31/19 09:46 Insulin Human Lispro (HumaLOG INSULIN) SEE PROTOCOL TABLE AC SC 01/24/19 12:00 02/03/19 08:56 Insulin Human Lispro (HumaLOG INSULIN) SEE PROTOCOL TABLE QHS SC 01/24/19 21:00 Levothyroxine Sodium (Synthroid) 112 mcg DAILY@06 PO 01/25/19 06:00 02/03/19 05:59 Lidocaine (Lidoderm Patch) 1 patch DAILY TD 01/25/19 16:45 01/25/19 17:34 DC Lidocaine (Lidoderm Patch) 1 patch DAILY@2100 TD 01/25/19 21:00 02/02/19 11:36 DC 01/27/19 20:54 Lisinopril (Prinivil) 40 mg DAILY PO 01/25/19 09:00 02/01/19 10:15 DC 02/01/19 09:12 Magnesium Hydroxide (Milk Of Magnesia) 30 ml DAILYPRN PRN PO CONSTIPATION 01/24/19 12:15 Magnesium Oxide (Mag-Ox) 400 mg BID PO 02/01/19 21:00 02/03/19 08:52 Metoprolol Succinate (TopROL XL) 12.5 mg DAILY PO 01/26/19 09:00 02/03/19 08:54 Miscellaneous (Unresolved Clarification Entry) SEE LABEL COMMENTS DAILY XX 01/30/19 09:00 01/31/19 09:12 DC Non-Formulary Medication ( See Comment Field Below ) REMOVE LIDODERM PATCH DAILY XX 01/26/19 09:00 02/02/19 08:48 Oxymetazoline HCl (Afrin) 2 spray ASDIRECTED PRN NA SEE LABEL COMMENTS 02/02/19 16:00 02/02/19 16:00 DC Senna (Senokot) 1 tab QHS PO 01/24/19 21:00 01/24/19 20:34 MILDRED JUÁREZ MD Feb 03, 2019 10:27
--- NOTE | 2019-02-03 10:28 | IPNPDOC ---
PM&R Progress Note DATE OF SERVICE: Feb 03, 2019 Homeworker Progress Note Subjective: Patient seen in the gym stating he feels much better today and that he was able to walk 50 feet without difficulty. He did lean forward out of his wheelchair and fell onto his left knee sustaining a small abrasion, but denies pain. REVIEW OF SYSTEMS: The following is a completed review of systems and has been reviewed. Review of systems otherwise unremarkable. PAIN: Patient self reports no pain EYES: No recent vision changes EARS, NOSE, & THROAT: +dysphagia CARDIOVASCULAR: Denies chest pain or palpitations PULMONARY: Denies shortness of breath GASTROINTESTINAL: Denies constipation/diarrhea GENITOURINARY: denies dysuria MUSCULOSKELETAL: left UE weakness NEUROLOGICAL: left UE paresis HEMATOLOGICAL: negative SKIN: right plantar foot ulcer PSYCHIATRIC: Unremarkable All other review of systems found to be negative. PHYSICAL EXAMINATION: VITAL SIGNS: Please see below. GENERAL: Pleasant and cooperative. No acute distress. +left sided facial droop HEENT: PERRL. Extraocular movements intact. Clear conjunctiva CARDIOVASCULAR: Regular rate and rhythm. No murmurs, rubs, or gallops LUNGS: Clear to auscultation bilaterally. No wheezes. No rhonchi ABDOMEN: Soft, nontender, nondistended. Positive bowel sounds. Normal active bowel sounds NEUROLOGICAL: Alert and oriented times three. Cranial nerves II through XII grossly intact. Sensation grossly intact, no neglect appreciated (-) babinkski bilat, hyper-reflexia LUE 1/4 MAS elbow flexion tone EXTREMITIES: 5\5 strength right upper extremities. 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 4-/5 strength in left lower extremity. SKIN: right plantar hyperkeratotic lesion ASSESSMENT:73-year-old M with past medical history of CABG and DM who presents status post stroke. PLAN: 1. Rehab: PT- advance gait and improve dynamic balance- able to ambulate further and propel wheelchair OT- strengthen LUE and stretch to prevent shoulder, elbow, wrist contractures REWRITE EDITOR: advance diet and assess for cognitive deficits- upgraded to level 3 diet 2. 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 CArdio: pmh Aortic valve repair and CABG, most recent ECHO 09/2017 with normal LVEF- medicine consulted to assist in management -HTN: c/u beta-aliyah, HCTZ and KATERYNA-I on hold for worsening renal function 4. Resp: encourage incentive spirometry 5. GI: pmh esophageal strictures s/p dilatation, will consider inhouse GI consult during hospital course- c/u protonix- -episode of difficulty swallowing solids, bedside eval per REWRITE EDITOR stable, will order Modified Barium study and esophagram 6. endo: pmh hypothyroidism, c/u synthroid, DM continue insulin and ISS, adjust prn 7. DVT ppx: heparin and TEDs 8. : monitor PVRs 9. 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 Skin: cover right plantar lesion with optifoam-refer to podiatry 10. Pain: continue low dose gabapentin for right thigh cramping, c/u to hold statin to see if this is causing myositis, ac/u Mg supplement 10. Dispo: TBD Allergies Coded Allergies: Contrast Media (Verified Allergy, Unknown, 03/29/13) daptomycin (Verified Allergy, Unknown, 01/24/19) Vital Signs Vital Signs Date Time Temp Pulse Resp B/P (MAP) Pulse Ox O2 Delivery O2 Flow Rate FiO2 02/03/19 08:54 62 123/58 02/03/19 06:00 98.0 14 96 Laboratory Data CBC/BMP Laboratory Tests 02/03/19 07:37 Anion Gap 8 Labs 24H Laboratory Tests 2 02/02/19 12:02: Bedside Glucose (Misc Panel) 144H 02/02/19 17:23: Bedside Glucose (Misc Panel) 153H 02/02/19 20:42: Bedside Glucose (Misc Panel) 155H 02/03/19 06:28: Bedside Glucose (Misc Panel) 130H 02/03/19 07:37: Blood Urea Nitrogen 80H, Creatinine 3.99H, Sodium Level 141, Potassium Level 4.6, Chloride Level 111H, Carbon Dioxide Level 22, Anion Gap 8, Glomerular Filtration Rate 15.7L, Calcium Level 8.5L, Phosphorus Level 4.5, Albumin 3.4 Current Medications Current Medications Current Medications Medications (Trade) Dose Ordered Sig/Natividad Route PRN Reason Start Time Stop Time Status Last Admin Dose Admin Acetaminophen (Tylenol Tab) 650 mg Q6HP PRN PO PAIN / FEVER 01/24/19 12:15 Amlodipine Besylate (Norvasc) 10 mg DAILY PO 01/25/19 09:00 02/03/19 08:54 Aspirin (Aspirin Chewable) 81 mg DAILY PO 01/25/19 09:00 02/03/19 08:52 Atenolol (Tenormin) 100 mg DAILY PO 01/25/19 09:00 01/25/19 12:10 DC Atorvastatin Calcium (Lipitor) 40 mg QHS PO 01/24/19 21:00 02/01/19 15:44 DC 01/31/19 20:50 Bisacodyl (Dulcolax Suppository) 10 mg DAILYPRN PRN [place] CONSTIPATION 01/24/19 12:15 Clopidogrel Bisulfate (PLAVix) 75 mg DAILY PO 01/25/19 09:00 02/03/19 08:52 Cyanocobalamin (Vitamin B12) 500 mcg DAILY PO 01/25/19 09:00 02/03/19 08:52 Dextrose (Dextrose 50%) 25 ml ASDIRECTED PRN IV SEE LABEL COMMENTS 01/24/19 12:15 Docusate Sodium (Colace) 100 mg BID PO 01/24/19 21:00 02/01/19 09:12 Fenofibrate (Tricor) 145 mg DAILY PO 01/25/19 09:00 02/02/19 11:32 DC 02/02/19 08:47 Ferrous Sulfate (Ferrous Sulfate) 325 mg DAILY PO 01/25/19 09:00 02/03/19 08:52 Fish Oil ([place]-3 (1000mg)) 1 cap DAILY PO 01/25/19 09:00 02/02/19 11:36 DC 01/27/19 09:37 Fluoxetine HCl (PROzac) 20 mg QHS PO 01/24/19 21:00 01/31/19 17:56 DC 01/30/19 20:32 Fluoxetine HCl (PROzac) 40 mg QHS PO 01/31/19 21:00 02/02/19 20:45 Folic Acid (Folic Acid) 1 mg DAILY PO 01/25/19 09:00 02/03/19 08:53 Gabapentin (Neurontin) 200 mg DAILY PO 02/01/19 09:00 02/03/19 08:53 Glucagon (Glucagon) 1 mg ASDIRECTED PRN SC SEE LABEL COMMENTS 01/24/19 12:15 Glucose (Glucose) 16 GM ASDIRECTED PRN PO SEE LABEL COMMENTS 01/24/19 12:15 Heparin Sodium (Porcine) (Heparin) 5,000 units Q12H SQ 01/24/19 21:00 02/03/19 08:55 Home Med (Med Rec Complete!) ASDIRECTED XX 01/24/19 13:30 01/24/19 13:56 DC Hydrochlorothiazide (Hydrodiuril) 25 mg DAILY PO 01/25/19 13:00 02/01/19 10:15 DC 02/01/19 09:12 Insulin Detemir (Levemir Insulin) 45 units DAILY SC 02/01/19 09:00 02/03/19 08:55 Insulin Detemir (Levemir Insulin) 50 units DAILY SC 01/25/19 09:00 01/31/19 17:56 DC 01/31/19 09:46 Insulin Human Lispro (HumaLOG INSULIN) SEE PROTOCOL TABLE AC MA 01/24/19 12:00 02/03/19 08:56 Insulin Human Lispro (HumaLOG INSULIN) [facility] 01/24/19 21:00 Levothyroxine Sodium (Synthroid) 112 mcg DAILY@06 PO 01/25/19 06:00 02/03/19 05:59 Lidocaine (Lidoderm Patch) 1 patch DAILY TD 01/25/19 16:45 01/25/19 17:34 DC Lidocaine (Lidoderm Patch) 1 patch DAILY@2100 TD 01/25/19 21:00 02/02/19 11:36 DC 01/27/19 20:54 Lisinopril (Prinivil) 40 mg DAILY PO 01/25/19 09:00 02/01/19 10:15 DC 02/01/19 09:12 Magnesium Hydroxide (Milk Of Magnesia) 30 ml DAILYPRN PRN PO CONSTIPATION 01/24/19 12:15 Magnesium Oxide (Mag-Ox) 400 mg BID PO 02/01/19 21:00 02/03/19 08:52 Metoprolol Succinate (TopROL XL) 12.5 mg DAILY PO 01/26/19 09:00 02/03/19 08:54 Miscellaneous (Unresolved Clarification Entry) SEE LABEL COMMENTS DAILY XX 01/30/19 09:00 01/31/19 09:12 DC Non-Formulary Medication ( See Comment Field Below ) REMOVE LIDODERM PATCH DAILY XX 01/26/19 09:00 02/02/19 08:48 Oxymetazoline HCl (Afrin) 2 spray ASDIRECTED PRN NA SEE LABEL COMMENTS 02/02/19 16:00 02/02/19 16:00 DC Senna (Senokot) 1 tab QHS PO 01/24/19 21:00 01/24/19 20:34 MILDRED JUÁREZ MD Feb 03, 2019 10:28
[2019-02-03] MEDS ORDERED: E-Z-GAS II EFFERVESCENT PACKET (SODIUM BICARB./CITRIC ACID/SIMETHICONE) As Ordered ONE (10:49)
[2019-02-03] MEDS ORDERED: E-Z-HD 98% w/w 340GM SUSP BTL As Ordered ONE (10:49)
[2019-02-03] MEDS ORDERED: E-Z-PAQUE 96% w/w SUSP 176GM BTL As Ordered ONE (10:49)
[2019-02-03] MEDS ORDERED: VARIBAR NECTAR 40% w/v 240ML SUSP BTL As Ordered ONE (10:54)
[2019-02-03] MEDS ORDERED: VARIBAR PUDDING 40% w/v 230ML TUBE As Ordered ONE (10:54)
[2019-02-03] MEDS ORDERED: BARIUM SULFATE 700 MG TABLET (E-Z-DISK) As Ordered ONE (11:13)
[2019-02-03 14:00] VITALS: BP 137/95
--- NOTE | 2019-02-03 15:48 | NUR ---
Recommend continue regular diet, thin liquids, med's whole in puree assist prn. Safe feeding strategies: upright, small bites/sips, slow meal pace. Continue dysphagia tx for compensatory strategy training and tongue-base strengthening. Addendum: 02/03/19 at 1549 by MIYA BUR[facility] SP Amended: Links added.
--- NOTE | 2019-02-03 17:21 | IPN ---
DATE: 02/03/2019 SUBJECTIVE: The patient was seen and examined at the bedside today morning. He is sitting in the sofa. He is afebrile. His blood pressures are optimal. He denies any active complaints. OBJECTIVE: Vital signs: Temperature is 98 degrees Fahrenheit, blood pressure 123/58, pulse is 57, respiratory of 14, saturating 96% on room air. Intake and output: Urine output recorded is 350 mL yesterday, 325 mL so far today since overnight. Weight in the bed scale is not available. PHYSICAL EXAMINATION: GENERAL: The patient is awake, alert, oriented times three, sitting up in the sofa in no apparent distress. HEAD AND NECK: Extraocular muscles intact. Pupils equally round and reactive to light. Mucous membranes are moist. He has a mild left-sided facial droop. Neck is supple. There is no jugular venous distention (JVD). CARDIOVASCULAR: S1, S2, regular rate. No edema of the bilateral lower extremities. RESPIRATORY: Chest is clear to auscultation bilaterally. Bilateral equal air entry. No rales or rhonchi. ABDOMEN: Soft. Positive bowel sounds. Nontender. No organomegaly. MUSCULOSKELETAL: No clubbing or cyanosis. Pulses are 2+. 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 PSYCHIATRIC: Normal mood and affect. LABORATORY REVIEW: Review CBC showed WBC 4.7, hemoglobin 11.9, platelets of 118. BMP showed sodium 141, potassium 4.6, chloride 111, bicarbonate 22, BUN 80, creatinine is 3.9; it was 3.8 yesterday. Calcium 8.5. CURRENT INPATIENT MEDICATIONS: The patient's medications were all reviewed by me. Tricor was stopped yesterday. The patient was given a dose of Kayexalate 15 grams by mouth times one dose. ASSESSMENT AND PLAN: 1. Acute kidney injury superimposed on chronic kidney disease, stage IV. Nephrotoxic medications were stopped yesterday. Creatinine is still fluctuating between 3.8-3.9. Electrolytes are within the acceptable range. Continue to monitor for improvement of renal function. No need of urgent hemodialysis at this time. 2. Hypertension with chronic kidney disease. The patient was on lisinopril, which has been stopped. Continue current dose of amlodipine and metoprolol. Blood pressures are within the acceptable range. 3. Acute cerebrovascular accident (CVA) with left-sided weakness. Continue aspirin and Plavix. Avoid use of Tricor. 4. Hyperkalemia. Potassium has improved within the normal range after a dose of Kayexalate. 5. Diabetes mellitus, type 2. Continue Levemir insulin sliding scale.
[2019-02-03 20:00] VITALS: BP 140/63
[2019-02-03] MEDS: SENNA 8.6 MG TAB (SENOKOT) PO SCH (21:00)
[2019-02-03] MEDS: FLUoxetine 20 MG CAP PO SCH (21:25)
[2019-02-04] MEDS: LEVOTHYROXINE 112MCG TABLET (0.112MG) PO SCH (05:51)
[2019-02-04 05:57] VITALS: BP 170/77
[2019-02-04 07:16] VITALS: BP 158/64
[2019-02-04] MEDS: HumaLOG INSULIN (NovoLOG) PER UNIT SC SCH ×4 (07:30→20:39)
[2019-02-04 08:08] LABS: ALBUMIN 3.3 GM/DL (3.2-5.2); CALCIUM LEVEL 8.7 MG/DL (8.8-10.2); CREATININE FOR GFR 3.46 MG/DL (0.70-1.30); GLOMERULAR FILTRATION RATE 18.5 (>42); POTASSIUM SERUM 4.8 MEQ/L (3.5-5.1)
[2019-02-04] MEDS: LEVEMIR (INSULIN DETEMIR) 1 UNITS/0.01ML SC SCH (09:26)
[2019-02-04] MEDS: HEPARIN SOD (PORCINE) 5000 UNITS/ML VIAL SQ SCH ×2 (09:26→20:39)
[2019-02-04] MEDS: GABAPENTIN 100 MG CAP PO SCH (09:27)
[2019-02-04] MEDS: ASPIRIN 81 MG CHEW TABLET PO SCH (09:27)
[2019-02-04] MEDS: FERROUS SULFATE 325MG TAB PO SCH (09:27)
[2019-02-04] MEDS: CYANOCOBALAMIN 500 MCG TAB PO SCH (09:27)
[2019-02-04] MEDS: DOCUSATE SODIUM 100 MG CAP PO SCH ×2 (09:31→20:39)
[2019-02-04] MEDS: FOLIC ACID 1 MG TAB PO SCH (09:31)
[2019-02-04] MEDS: MAGNESIUM OXIDE 400 MG TAB (MAG-OX) PO SCH ×2 (09:31→20:38)
[2019-02-04] MEDS: METOPROLOL SUCC *XL* 12.5MG PER 1/2 TAB (TopROL *XL*) PO SCH (09:31)
[2019-02-04] MEDS: CLOPIDOGREL 75 MG TAB PO SCH (09:31)
[2019-02-04] MEDS: **NOTE PATIENT COMMENT** MISC XX SCH (09:32)
[2019-02-04] MEDS: amLODIPine 10 MG TAB PO SCH (09:32)
--- NOTE | 2019-02-04 13:00 | IPN ---
DATE OF VISIT: 02/04/2019 Mr. Yañez is seen this morning on his bedside. He has known history of chronic kidney disease, hypertension and was admitted with acute embolic stroke. He was initially transferred to [facility] where he had thrombolysis done with tissue plasminogen activator (tPA). He has been now transferred to acute rehab unit here at [facility] for left-sided hemiparesis. The patient had difficult to control hypertension and his meds have been adjusted. He also had acute renal failure superimposed on chronic kidney disease and was felt to be related to high-dose KATERYNA inhibitor which has been stopped. His kidney function did improve slightly compared to yesterday. PHYSICAL EXAMINATION: The patient is awake and alert and at his baseline mentation. He is unable to move his left arm but has started moving his left leg and was able to walk. His temperature is 97.3 degrees Fahrenheit, heart rate 64 per minute and respiratory rate 18 per minute. Blood pressure 152/62 mmHg and oxygen saturation 97% on room air. Head is atraumatic. Neck is supple and without jugular venous distention (JVD) or thyroid enlargement. His heart sounds are regular and lungs clear to auscultation. Abdomen is soft and nontender and bowel sounds are normal. Extremities have no cyanosis or clubbing. Neurologically he is awake and alert times three. He is unable to move his left arm. He is able to move his left leg though. Today's labs show sodium 141, potassium 4.8, CO2 23, BUN 74 and creatinine 3.46. Calcium 8.4 and phosphorus 4.0. WBC count was 4.7 on February 02 and hemoglobin was 11.9. No recent CBC since . PROBLEMS: 1. Acute renal failure superimposed on chronic kidney disease. Probably related to KATERYNA inhibitor use as he may have underlying bilateral renal artery disease. His KATERYNA inhibitor has been stopped and kidney function seems to be improving. We will continue to monitor and recheck his renal profile tomorrow morning. 2. Hypertension. Blood pressure is slightly higher than the goal but he recently had an acute stroke. We will continue to watch and see how he does. He did not receive his morning dose of medications as yet. We will monitor his blood pressure through the day today and make adjustments if needed. 3. Left hemiparesis. The patient is getting rehab and in good spirits.
[2019-02-04 14:00] VITALS: BP 132/48
[2019-02-04 20:00] VITALS: BP 150/70
[2019-02-04] MEDS: FLUoxetine 20 MG CAP PO SCH (20:38)
[2019-02-04] MEDS: SENNA 8.6 MG TAB (SENOKOT) PO SCH (20:39)
[2019-02-05 05:47] VITALS: BP 137/60
[2019-02-05] MEDS: LEVOTHYROXINE 112MCG TABLET (0.112MG) PO SCH (06:29)
[2019-02-05 06:58] LABS: HEMATOCRIT 37.5 % (42.0-52.0); HEMOGLOBIN 12.1 g/dl (13.5-17.5); MEAN CORPUSCULAR HEMOGLOBIN 28.3 pg (27.0-33.0); MEAN CORPUSCULAR HGB CONC 32.3 g/dl (32.0-36.5); MEAN CORPUSCULAR VOLUME 87.6 fl (80.0-96.0); PLATELET COUNT, AUTOMATED 135 10^3/uL (150-450); RED BLOOD COUNT 4.28 10^6/uL (4.30-6.10); WHITE BLOOD COUNT 4.1 10^3/uL (4.0-10.0)
[2019-02-05] MEDS: HumaLOG INSULIN (NovoLOG) PER UNIT SC SCH ×4 (07:30→20:20)
[2019-02-05] MEDS: ASPIRIN 81 MG CHEW TABLET PO SCH (08:37)
[2019-02-05] MEDS: HEPARIN SOD (PORCINE) 5000 UNITS/ML VIAL SQ SCH ×2 (08:37→20:26)
[2019-02-05] MEDS: DOCUSATE SODIUM 100 MG CAP PO SCH ×2 (08:37→20:26)
[2019-02-05] MEDS: CLOPIDOGREL 75 MG TAB PO SCH (08:38)
[2019-02-05] MEDS: FOLIC ACID 1 MG TAB PO SCH (08:38)
[2019-02-05] MEDS: FERROUS SULFATE 325MG TAB PO SCH (08:38)
[2019-02-05] MEDS: LEVEMIR (INSULIN DETEMIR) 1 UNITS/0.01ML SC SCH (08:38)
[2019-02-05] MEDS: CYANOCOBALAMIN 500 MCG TAB PO SCH (08:38)
[2019-02-05] MEDS: GABAPENTIN 100 MG CAP PO SCH (08:38)
[2019-02-05] MEDS: MAGNESIUM OXIDE 400 MG TAB (MAG-OX) PO SCH ×2 (08:39→20:26)
[2019-02-05] MEDS: amLODIPine 10 MG TAB PO SCH (08:42)
[2019-02-05] MEDS: METOPROLOL SUCC *XL* 12.5MG PER 1/2 TAB (TopROL *XL*) PO SCH (08:42)
[2019-02-05] MEDS: **NOTE PATIENT COMMENT** MISC XX SCH (08:43)
[2019-02-05 14:00] VITALS: BP 139/64
[2019-02-05] MEDS: FLUoxetine 20 MG CAP PO SCH (20:26)
[2019-02-05] MEDS: SENNA 8.6 MG TAB (SENOKOT) PO SCH (20:26)
[2019-02-05 20:35] VITALS: BP 150/68
[2019-02-06] MEDS: LEVOTHYROXINE 112MCG TABLET (0.112MG) PO SCH (06:01)
[2019-02-06 06:03] VITALS: BP 150/67
[2019-02-06 07:34] LABS: ALBUMIN 3.2 GM/DL (3.2-5.2); CALCIUM LEVEL 8.6 MG/DL (8.8-10.2); CREATININE FOR GFR 3.24 MG/DL (0.70-1.30); PHOSPHORUS LEVEL 3.5 MG/DL (2.5-4.9); POTASSIUM SERUM 5.2 MEQ/L (3.5-5.1)
--- NOTE | 2019-02-06 07:51 | IPN ---
DATE: 02/04/2019 This is a 73-year-old male patient on the acute rehabilitation unit who had an acute lacunar infarct that resulted in left sided weakness. His vital signs remain stable, 132 to 152 over 60s, heart rate is 60 to 64. Blood sugar this morning was 86. Continues on Levemir. History of chronic renal failure. BUN and creatinine about the same at 74 and 3.46. He has had slight dysphasia. He has a history of esophageal strictures, he has had diltations. He continues to be unable to move his left arm or leg. He does continue to participate in therapy. OBJECTIVE: Blood pressure 132/48, pulse 60, respirations 18, temperature 97.1. GENERAL: The patient is alert and oriented times three. HEENT: Pharynx, gums and tongue pink and moist. Tongue is midline. NECK: Supple without lymphadenopathy, thyromegaly or goiter. Carotids 2+ without bruit. CHEST: Clear to auscultation. HEART: Regular. ABDOMEN: Benign. Bowel sounds positive. EXTREMITIES: No cyanosis, clubbing or edema. Decreased strength in the left arm and leg. Peripheral pulses are equal and palpable bilaterally. SKIN: Warm and dry. IMPRESSION/PLAN: 1. Ischemic CVA status post TPA with residual left sided weakness. Management as per acute rehabilitation unit. Continue physical therapy (PT) and occupational therapy (OT), aspirin and Plavix. 2. Insulin-dependent diabetes mellitus type 2. Continue sliding scale and Levemir. Monitor blood sugars and adjust as necessary. Currently clinically stable. 3. Hypertension, stable. 4. Hypercholesterolemia. Continues on Lipitor. 5. Aortic valve replacement, porcine valve replacement. Anticoagulation not indicated. 6. Hypothyroidism. Continue levothyroxine. 7. Deep vein thrombosis (DVT) prophylaxis. Continues with heparin.
--- NOTE | 2019-02-06 07:52 | CR ---
DATE OF CONSULTATION: 02/04/2019 This is a 73-year-old white male who is being seen for gastrointestinal (GI) for history of intermittent dysphagia. The patient had been transferred from [place] to the acute rehab unit for rehabilitation status post tissue plasminogen activator (tPA) for CVA with residual left-sided weakness and dysphagia. The patient states that he still has residual left-sided numbness, but is able to move his left lower leg. 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 He had no complaints of chest pain, nausea, vomiting, fevers, night sweats, shaking chills. No complaints of abdominal pain, diarrhea, or constipation. PAST MEDICAL HISTORY IS POSITIVE FOR: 1. Type 2 insulin dependent diabetes mellitus. 2. Hypertension. 3. Hypercholesterolemia. 4. Aortic pig valve replacement. 5. 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 6. Myocardial infarction ([place]) in 2009 with a cardiac arrest. PAST SURGICAL HISTORY: Coronary artery bypass graft (CABG) times four in 2009. Right below peritoneal amputation. Cataract surgery. ALLERGIES: Are as stated in history present illness. SOCIAL HISTORY: The patient quit smoking 35 years ago. He used to smoke four packs a day since the ages of 16 and 33. Denies alcohol use. FAMILY HISTORY: Is noncontributory to above problem. REVIEW OF SYSTEMS: 10-point review of systems is negative. PHYSICAL EXAMINATION: No physical exam was obtained during this visit. Laboratory studies on admission showed a white count of 5000, hemoglobin and hematocrit of 12.7 and 39.5, platelets 133,000. The patient's chemistry was normal. IMAGING STUDIES: The patient had esophagram/cookie swallow which unofficial interpretation by myself appears to be normal. The patient has had a previous upper endoscopy with dilatation by Dr. Wagner in the past. The patient states he does not have any problems with pills or foods, occasionally he does have some issues if he bends his neck in a certain way. No nausea or vomiting. The patient denies any real difficulty with dysphagia. PLAN: Would be to recommend the patient be placed on soft foods as needed, nectar like foods and liquids or milkshakes as needed. The patient can use applesauce to help swallow pills if he has any trouble which he denies at this time at the present. In light of the patient not having any greater issues with problems with daily dysphagia symptoms, I do not feel it is necessary to set the patient up for an upper endoscopy at this time. If the patient develops anymore symptoms once he is discharged, he can follow up with Dr. Wagner.
--- NOTE | 2019-02-06 07:53 | IPN ---
DATE: 02/05/2019 Mr. Yañez is seen this morning on his bedside. He is sitting in the recliner chair and feels well. He walked yesterday in the hallway but did not have any physical therapy today. He denies any headache, nausea, vomiting, dyspnea, chest pain or leg edema. PHYSICAL EXAMINATION Temperature 97.5 degrees Fahrenheit, heart rate 60 per minute and respiratory rate 18 per minute. Blood pressure 138/44 mmHg and oxygen saturation 97% on room air. His head is atraumatic. Neck is supple and without jugular venous distention (JVD) or thyroid enlargement. Heart sounds regular and lungs clear to auscultation. Abdomen is soft and nontender and bowel sounds are normal. Extremities have no cyanosis or clubbing. Skin has no rash or ulcers. Neurologically, he is awake, alert and at his baseline mentation. He is still does not have any movement of his left upper extremities though he is able to use his left leg. Today's labs show WBC count 4.1, hemoglobin 12.1 and hematocrit 37.5. Platelets 135. He did not have a chemistry today. Yesterday his creatinine was down to 3.46. PROBLEMS: 1. Acute renal failure superimposed on chronic kidney disease. Probably related to medications and kidney function is now improving as his KATERYNA inhibitor was stopped a couple of days ago. We will check his renal profile tomorrow and see how he does. Electrolytes have been stable. 2. Hypertension. Blood pressure is very well controlled on current antihypertensive medications and no changes are being made today. All other issues are being addressed by acute rehabilitation unit.
[2019-02-06] MEDS: HumaLOG INSULIN (NovoLOG) PER UNIT SC SCH ×4 (07:54→20:16)
[2019-02-06] MEDS: HEPARIN SOD (PORCINE) 5000 UNITS/ML VIAL SQ SCH ×2 (07:54→20:23)
--- NOTE | 2019-02-06 07:54 | IPN ---
DATE: 02/05/2019 He is on the acute rehab unit having had an acute ischemic infarct. His vital signs remain stable. He is afebrile. He is participating with physical therapy. He has a history of chronic kidney disease, currently stable. He continues to work on moving his left arm. He has started to move the left leg slightly. He continues with physical therapy. Laboratory studies are stable. WBC is 4.1, hemoglobin 12.1, hematocrit 37.5, platelets are 135. Sodium is 141, potassium 4.8. BUN yesterday 74, creatinine 3.46. Blood sugar this morning 82. He continues on insulin. Hypothyroidism on levothyroxine. No changes made. OBJECTIVE: Blood pressure 137/60, pulse 60, respirations 18, temperature 97.5. Patient is alert and oriented times three. Pupils equal and reactive to light. Pharynx tongue and gums pink and moist. Tongue is midline. Neck was supple without lymphadenopathy, no thyromegaly, no goiter. Carotids 2+ without bruit. Chest clear to auscultation without wheeze or retraction. Heart is regular. Abdomen benign. Bowel sounds positive. /rectal not done. Extremities no clubbing, cyanosis, or edema. Decreased strength left lower leg, unable to move left upper extremity. Peripheral pulses equal and palpable bilaterally. Skin is warm and dry. IMPRESSION/PLAN: 1. Ischemic cerebrovascular accident (CVA) status post tPA with residual left sided weakness. Management continues per acute rehab. Continue physical therapy and occupational therapy, aspirin and Plavix. 2. Insulin dependent diabetes type 2. Continue fingerstick blood sugars and Levemir. Adjust if necessary. 3. Hypertension. Stable. 4. Hypercholesterolemia. Continue Lipitor. 5. Aortic porcine valve. Anticoagulation not indicated. 6. Hypothyroidism. On levothyroxine. 7. Deep vein thrombosis (DVT) prophylaxis with heparin. No new acute medical issues.
[2019-02-06] MEDS: ASPIRIN 81 MG CHEW TABLET PO SCH (07:55)
[2019-02-06] MEDS: **NOTE PATIENT COMMENT** MISC XX SCH (07:55)
[2019-02-06] MEDS: LEVEMIR (INSULIN DETEMIR) 1 UNITS/0.01ML SC SCH (07:55)
[2019-02-06] MEDS: GABAPENTIN 100 MG CAP PO SCH (07:55)
[2019-02-06] MEDS: CYANOCOBALAMIN 500 MCG TAB PO SCH (07:56)
[2019-02-06] MEDS: MAGNESIUM OXIDE 400 MG TAB (MAG-OX) PO SCH (07:56)
[2019-02-06] MEDS: FOLIC ACID 1 MG TAB PO SCH (07:56)
[2019-02-06] MEDS: FERROUS SULFATE 325MG TAB PO SCH (07:56)
[2019-02-06] MEDS: CLOPIDOGREL 75 MG TAB PO SCH (07:56)
[2019-02-06] MEDS: DOCUSATE SODIUM 100 MG CAP PO SCH (07:56)
[2019-02-06] MEDS: amLODIPine 10 MG TAB PO SCH (07:59)
[2019-02-06] MEDS: METOPROLOL SUCC *XL* 12.5MG PER 1/2 TAB (TopROL *XL*) PO SCH (07:59)
--- NOTE | 2019-02-06 08:20 | IPNPDOC ---
Text Note Date of Service The patient was seen on 02/06/19. NOTE Subjective: Patient has no complaints, denies chest pain, denies SOB, family at bedside report improvement in symptoms. Objective GENERAL: NAD SKIN : Warm, dry intact HEENT: Atraumatic, normocephalic, PERRL, moist mucous membrane CARDIOVASCULAR: Regular rate and rhythm, S1S2, no JVD, no edema, distal pulses + palpable RESP: CTAB, no accessory muscle use noted ABDOMEN: BS+ non distended non tender MS: no joint deformities NEURO: Alert and oriented x 3, left upper extremity paralysis,left lower weakness PSYCH: no anxiety or agitation, appropriate mood and affect. Right hernandez radiata/internal capsule ischemic infarct -Presenting with facial droop and left upper extremity paralysis -Rehabilitation by primary team Hyperkalemia -Kayexalate now -recheck BMP in the am Diabetes mellitus type 2. -controlled -Finger stick checks prior to meals and at bedtime -Coverage with insulin per sliding scale Hypothyroidism -Continue Synthroid Hypertension -Blood pressure is currently controlled -Continue to monitor per unit protocol Hyperlipidemia -Continue statin therapy DVT prophylaxis -Heparin subcutaneous every 12 VS,Fishbone, I+O VS, Fishbone, I+O Laboratory Tests 02/06/19 06:57 Anion Gap 7 L Vital Signs Date Time Temp Pulse Resp B/P (MAP) Pulse Ox O2 Delivery O2 Flow Rate FiO2 02/06/19 07:59 60 138/64 02/06/19 06:03 97.9 18 97 I&O- Last 24 Hours up to 6 AM 02/06/19 05:59 Intake Total 1140 ml Output Total 1650 ml Balance -510 ml [facility] Feb 06, 2019 08:20
[2019-02-06] MEDS: hydroCHLOROthiazide 12.5 MG CAPSULE PO SCH (10:00)
--- NOTE | 2019-02-06 10:35 | IPNPDOC ---
PM&R Progress Note DATE OF SERVICE: Feb 06, 2019 Producer Director Progress Note Subjective: Patient seen in his room stating he had fecal incontinence after getting Kayexalate. He reports his right thigh cramping is better. He is less upset about the dispo plan for SNF and understands he will continue to get rehab. REVIEW OF SYSTEMS: The following is a completed review of systems and has been reviewed. Review of systems otherwise unremarkable. PAIN: Patient self reports no pain EYES: No recent vision changes EARS, NOSE, & THROAT: +dysphagia CARDIOVASCULAR: Denies chest pain or palpitations PULMONARY: Denies shortness of breath GASTROINTESTINAL: Denies constipation/diarrhea GENITOURINARY: denies dysuria MUSCULOSKELETAL: left UE weakness NEUROLOGICAL: left UE paresis HEMATOLOGICAL: negative SKIN: right plantar foot ulcer PSYCHIATRIC: Unremarkable All other review of systems found to be negative. PHYSICAL EXAMINATION: VITAL SIGNS: Please see below. GENERAL: Pleasant and cooperative. No acute distress. +left sided facial droop HEENT: PERRL. Extraocular movements intact. Clear conjunctiva CARDIOVASCULAR: Regular rate and rhythm. No murmurs, rubs, or gallops LUNGS: Clear to auscultation bilaterally. No wheezes. No rhonchi ABDOMEN: Soft, nontender, nondistended. Positive bowel sounds. Normal active bowel sounds NEUROLOGICAL: Alert and oriented times three. Cranial nerves II through XII grossly intact. Sensation grossly intact, no neglect appreciated (-) babinkski bilat, hyper-reflexia LUE 1/4 MAS elbow flexion tone EXTREMITIES: 5\5 strength right upper extremities. 2/5 strengthen right elbow flexors, extensors, and career information specialist, 1/5 wrist extension 5\5 strength right lower extremity. 4-/5 strength in left lower extremity. SKIN: right plantar hyperkeratotic lesion ASSESSMENT:73-year-old M with past medical history of CABG and DM who presents status post stroke. PLAN: 1. Rehab: PT- advance gait and improve dynamic balance- able to ambulate further and propel wheelchair OT- strengthen LUE and stretch to prevent shoulder, elbow, wrist contractures PERFUME COMPOUNDER: advance diet and assess for cognitive deficits- upgraded to level 3 diet 2. 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 CArdio: pmh Aortic valve repair and CABG, most recent ECHO 09/2017 with normal LVEF- medicine consulted to assist in management -HTN: c/u beta-aliyah and HCTZ restarted today KATERYNA-I on hold for worsening renal function 4. Resp: encourage incentive spirometry 5. GI: pmh esophageal strictures s/p dilatation, will consider inhouse GI consu lt during hospital course- c/u protonix- -episode of difficulty swallowing solids, bedside eval per PERFUME COMPOUNDER stable, will order Modified Barium study and esophagram 6. endo: pmh hypothyroidism, c/u synthroid, DM continue insulin and ISS, adjust prn 7. DVT ppx: heparin and TEDs 8. : monitor PVRs 9. 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 Skin: cover right plantar lesion with optifoam-refer to podiatry 10. Pain: continue low dose gabapentin for right thigh cramping which has improved, will d/c Mg supplement due to loose stools, c/u to hold statin for brown spected 11. GI: will d/c bowel meds for loose stools ad monitor 10. Dispo: dispo to SNF, awaiting bed at [facility] Allergies Coded Allergies: Contrast Media (Verified Allergy, Unknown, 03/29/13) daptomycin (Verified Allergy, Unknown, 01/24/19) Vital Signs Vital Signs Date Time Temp Pulse Resp B/P (MAP) Pulse Ox O2 Delivery O2 Flow Rate FiO2 02/06/19 07:59 60 138/64 02/06/19 06:03 97.9 18 97 Laboratory Data CBC/BMP Laboratory Tests 02/06/19 06:57 Anion Gap 7 L Labs 24H Laboratory Tests 2 02/05/19 11:41: Bedside Glucose (Misc Panel) 162H 02/05/19 17:36: Bedside Glucose (Misc Panel) 110 02/05/19 19:44: Bedside Glucose (Misc Panel) 138H 02/06/19 06:18: Bedside Glucose (Misc Panel) 123H 02/06/19 06:57: Blood Urea Nitrogen 66H, Creatinine 3.24H, Sodium Level 140, Potassium Level 5.2H, Chloride Level 110H, Carbon Dioxide Level 23, Anion Gap 7L, Glomerular Filtration Rate 20.0L, Calcium Level 8.6L, Phosphorus Level 3.5, Albumin 3.2 Current Medications Current Medications Current Medications Medications (Trade) Dose Ordered Sig/Natividad Route PRN Reason Start Time Stop Time Status Last Admin Dose Admin Acetaminophen (Tylenol Tab) 650 mg Q6HP PRN PO PAIN / FEVER 01/24/19 12:15 Amlodipine Besylate (Norvasc) 10 mg DAILY PO 01/25/19 09:00 02/06/19 07:59 Aspirin (Aspirin Chewable) 81 mg DAILY PO 01/25/19 09:00 02/06/19 07:55 Atenolol (Tenormin) 100 mg DAILY PO 01/25/19 09:00 01/25/19 12:10 DC Atorvastatin Calcium (Lipitor) 40 mg QHS PO 01/24/19 21:00 02/01/19 15:44 DC 01/31/19 20:50 Bisacodyl (Dulcolax Suppository) 10 mg DAILYPRN PRN PA CONSTIPATION 01/24/19 12:15 Clopidogrel Bisulfate (PLAVix) 75 mg DAILY PO 01/25/19 09:00 02/06/19 07:56 Cyanocobalamin (Vitamin B12) 500 mcg DAILY PO 01/25/19 09:00 02/06/19 07:56 Dextrose (Dextrose 50%) 25 ml ASDIRECTED PRN IV SEE LABEL COMMENTS 01/24/19 12:15 Docusate Sodium (Colace) 100 mg BID PO 01/24/19 21:00 02/06/19 07:56 Fenofibrate (Tricor) 145 mg DAILY PO 01/25/19 09:00 02/02/19 11:32 DC 02/02/19 08:47 Ferrous Sulfate (Ferrous Sulfate) 325 mg DAILY PO 01/25/19 09:00 02/06/19 07:56 Fish Oil (Grovespring-3 (1000mg)) 1 cap DAILY PO 01/25/19 09:00 02/02/19 11:36 DC 01/27/19 09:37 Fluoxetine HCl (PROzac) 20 mg QHS PO 01/24/19 21:00 01/31/19 17:56 DC 01/30/19 20:32 Fluoxetine HCl (PROzac) 40 mg QHS PO 01/31/19 21:00 02/05/19 20:26 Folic Acid (Folic Acid) 1 mg DAILY PO 01/25/19 09:00 02/06/19 07:56 Gabapentin (Neurontin) 200 mg DAILY PO 02/01/19 09:00 02/06/19 07:55 Glucagon (Glucagon) 1 mg ASDIRECTED PRN SC SEE LABEL COMMENTS 01/24/19 12:15 Glucose (Glucose) 16 GM ASDIRECTED PRN PO SEE LABEL COMMENTS 01/24/19 12:15 Heparin Sodium (Porcine) (Heparin) 5,000 units Q12H SQ 01/24/19 21:00 02/06/19 09:40 DC 02/06/19 07:54 Heparin Sodium (Porcine) (Heparin) 5,000 units Q12H SQ 02/06/19 21:00 Home Med (Med Rec Complete!) ASDIRECTED XX 01/24/19 13:30 01/24/19 13:56 DC Hydrochlorothiazide (Hydrodiuril) 12.5 mg DAILY PO 02/06/19 09:00 02/06/19 10:00 Hydrochlorothiazide (Hydrodiuril) 25 mg DAILY PO 01/25/19 13:00 02/01/19 10:15 DC 02/01/19 09:12 Insulin Detemir (Levemir Insulin) 45 units DAILY SC 02/01/19 09:00 02/06/19 07:55 Insulin Detemir (Levemir Insulin) 50 units DAILY SC 01/25/19 09:00 01/31/19 17:56 DC 01/31/19 09:46 Insulin Human Lispro (HumaLOG INSULIN) SEE PROTOCOL TABLE AC SC 01/24/19 12:00 02/06/19 07:54 Insulin Human Lispro (HumaLOG INSULIN) SEE PROTOCOL TABLE QHS SC 01/24/19 21:00 Levothyroxine Sodium (Synthroid) 112 mcg DAILY@06 PO 01/25/19 06:00 02/06/19 06:01 Lidocaine (Lidoderm Patch) 1 patch DAILY TD 01/25/19 16:45 01/25/19 17:34 DC Lidocaine (Lidoderm Patch) 1 patch DAILY@2100 TD 01/25/19 21:00 02/02/19 11:36 DC 01/27/19 20:54 Lisinopril (Prinivil) 40 mg DAILY PO 01/25/19 09:00 02/01/19 10:15 DC 02/01/19 09:12 Magnesium Hydroxide (Milk Of Magnesia) 30 ml DAILYPRN PRN PO CONSTIPATION 01/24/19 12:15 02/06/19 09:22 DC Magnesium Oxide (Mag-Ox) 400 mg BID PO 02/01/19 21:00 02/06/19 07:56 Metoprolol Succinate (TopROL XL) 12.5 mg DAILY PO 01/26/19 09:00 02/06/19 07:59 Miscellaneous (Unresolved Clarification Entry) SEE LABEL COMMENTS DAILY XX 01/30/19 09:00 01/31/19 09:12 DC Miscellaneous (Unresolved Clarification Entry) SEE LABEL COMMENTS DAILY XX 02/06/19 09:00 02/06/19 09:41 DC Non-Formulary Medication ( See Comment Field Below ) REMOVE LIDODERM PATCH DAILY XX 01/26/19 09:00 02/04/19 09:32 Oxymetazoline HCl (Afrin) 2 spray ASDIRECTED PRN NA SEE LABEL COMMENTS 02/02/19 16:00 02/02/19 16:00 DC Senna (Senokot) 1 tab QHS PO 01/24/19 21:00 02/05/19 20:26 MILDRED JUÁREZ MD Feb 06, 2019 10:35
[2019-02-06] MEDS ORDERED: SOD POLYSTYRENE SULFONATE SUSP 15 GM/60 ML UD PO ONE (12:00)
[2019-02-06 14:00] VITALS: BP 131/63
--- NOTE | 2019-02-06 15:33 | IPN ---
DATE: 02/06/2019 Mr. Yañez is seen this morning on his bedside. He is doing physical therapy this morning and is currently in the wheelchair. He is still unable to move his left upper extremity; however, he is able to walk short distance and is able to move his left leg. He denies any dyspnea, chest pain, nausea, vomiting, headache, fever or chills. PHYSICAL EXAMINATION: Temperature 97.9 degrees Fahrenheit, heart rate 60 per minute and respiratory rate 18 per minute. Blood pressure 138/64 mmHg and oxygen saturation 97% on room air. Head is atraumatic. Neck is supple and without jugular venous distention (JVD) or thyroid enlargement. Heart sounds are regular. Lungs clear to auscultation. Abdomen soft and nontender and bowel sounds are normal. Extremities have no cyanosis or clubbing. Neurologically, he is awake and alert. His left upper extremity paresis persists. Today's chemistry showed sodium 140, potassium 5.2, chloride 110, CO2 23, BUN 66 and creatinine 3.24. Albumin is 3.2. PROBLEMS: 1. Acute kidney injury superimposed on chronic kidney disease. Most likely related to high-dose angiotensin-converting enzyme (KATERYNA) inhibitor use. His KATERYNA inhibitor was stopped a few days ago and kidney function is slowly improving. He has no uremic symptoms and we will continue to monitor closely. 2. Hyperkalemia. Most likely related to acute on chronic injury and high potassium diet. I have advised him to avoid bananas and orange juice. I am going to put him on low-dose hydrochlorothiazide with 12.5 mg dose daily, which will help to prevent hyperkalemia. 3. Hypertension. Blood pressure is reasonably well-controlled and low-dose hydrochlorothiazide is being added due to recurrent hyperkalemia. 4. Left hemiparesis due to recent stroke. The patient continues with rehabilitation and is making slow progress.
[2019-02-06 20:04] VITALS: BP 114/56
[2019-02-06] MEDS: FLUoxetine 20 MG CAP PO SCH (20:25)
[2019-02-07] MEDS: LEVOTHYROXINE 112MCG TABLET (0.112MG) PO SCH (06:15)
[2019-02-07 06:18] VITALS: BP 132/80
[2019-02-07 06:25] LABS: HEMATOCRIT 34.8 % (42.0-52.0); HEMOGLOBIN 11.2 g/dl (13.5-17.5); MEAN CORPUSCULAR HEMOGLOBIN 28.4 pg (27.0-33.0); MEAN CORPUSCULAR HGB CONC 32.2 g/dl (32.0-36.5); MEAN CORPUSCULAR VOLUME 88.3 fl (80.0-96.0); PLATELET COUNT, AUTOMATED 126 10^3/uL (150-450); RED BLOOD COUNT 3.94 10^6/uL (4.30-6.10)
[2019-02-07 06:57] LABS: ALBUMIN 3.1 GM/DL (3.2-5.2); BILIRUBIN,TOTAL 0.6 MG/DL (0.2-1.0); CALCIUM LEVEL 8.9 MG/DL (8.8-10.2); CREATININE FOR GFR 3.31 MG/DL (0.70-1.30); GLOMERULAR FILTRATION RATE 19.5 (>42); POTASSIUM SERUM 4.8 MEQ/L (3.5-5.1); TOTAL PROTEIN 7.3 GM/DL (6.4-8.2)
[2019-02-07] MEDS: GABAPENTIN 100 MG CAP PO SCH (10:15)
[2019-02-07] MEDS: FERROUS SULFATE 325MG TAB PO SCH (10:16)
[2019-02-07] MEDS: CLOPIDOGREL 75 MG TAB PO SCH (10:16)
[2019-02-07] MEDS: hydroCHLOROthiazide 12.5 MG CAPSULE PO SCH (10:16)
[2019-02-07] MEDS: METOPROLOL SUCC *XL* 12.5MG PER 1/2 TAB (TopROL *XL*) PO SCH (10:16)
[2019-02-07] MEDS: ASPIRIN 81 MG CHEW TABLET PO SCH (10:16)
[2019-02-07] MEDS: CYANOCOBALAMIN 500 MCG TAB PO SCH (10:16)
[2019-02-07 10:17] VITALS: BP 132/80
[2019-02-07] MEDS: amLODIPine 10 MG TAB PO SCH (10:17)
[2019-02-07] MEDS: FOLIC ACID 1 MG TAB PO SCH (10:17)
[2019-02-07] MEDS: HEPARIN SOD (PORCINE) 5000 UNITS/ML VIAL SQ SCH (10:18)
[2019-02-07] MEDS: HumaLOG INSULIN (NovoLOG) PER UNIT SC SCH ×2 (10:18→12:47)
[2019-02-07] MEDS: LEVEMIR (INSULIN DETEMIR) 1 UNITS/0.01ML SC SCH (10:19)
[2019-02-07] MEDS ORDERED: GABA-1171 PO (11:05)
[2019-02-07] MEDS ORDERED: SYNT112T2 PO (11:05)
[2019-02-07] MEDS ORDERED: ATOR40TA75 PO (11:05)
[2019-02-07] MEDS ORDERED: AMLO10TA5 PO (11:05)
[2019-02-07] MEDS ORDERED: ASPI81CH8 PO (11:05)
[2019-02-07] MEDS ORDERED: INSUHUMDS SC ×2 (11:05)
[2019-02-07] MEDS ORDERED: INSUDET SC (11:05)
[2019-02-07] MEDS ORDERED: HYDR12CA PO (11:05)
[2019-02-07] MEDS ORDERED: CLOP75TA2 PO (11:05)
[2019-02-07] MEDS ORDERED: METO1TAB32 PO (11:05)
[2019-02-07] MEDS ORDERED: FERR325T18 PO (11:05)
[2019-02-07] MEDS ORDERED: VITA500T40 PO (11:05)
[2019-02-07] MEDS ORDERED: FLUO20CA19 PO (11:05)
[2019-02-07] MEDS ORDERED: FOLI1TAB11 PO (11:05)
--- NOTE | 2019-02-07 13:51 | IPN ---
DATE: 02/07/2019 Mr. Yañez is seen this morning on his bedside. He denies any new complaints. He has been participating with physical rehab. He denies any dyspnea, chest pain, nausea or vomiting. His left upper extremity still not moving though he is able to move his left leg and is able to even walk. He has been eating and drinking well without any difficulty. PHYSICAL EXAMINATION: Temperature 97.7 degrees Fahrenheit, heart rate 62 per minute and respiratory rate 18 per minute. Blood pressure 132/80 mmHg and oxygen saturation 97% on room air. His head is atraumatic. Neck is supple and without jugular venous distention (JVD) or thyroid enlargement. Heart: Sounds are regular. Lungs clear to auscultation. Abdomen soft and nontender and without palpable organomegaly. Bowel sounds are normal. Extremities have no cyanosis or clubbing. Neurologically, he is awake, alert and at his baseline mentation. Left upper extremity not moving. Today's labs show WBC count 4.0, hemoglobin 11.2 and hematocrit 34.8. Platelets 126. Sodium 142, potassium 4.8, CO2 25, BUN 62 and creatinine 3.31. Glucose 125 and calcium 8.9. PROBLEMS: 1. Acute renal failure superimposed on chronic kidney disease: The patient had gradual improvement in his kidney function over the last 3 days. However, today there is no improvement and in fact, there is slight increase in the creatinine. We will continue to watch closely. The patient is being encouraged to liberalize his oral intake. 2. Hyperkalemia: His potassium level was 5.2 yesterday and it improved to 4.8. The patient is now following low potassium diet. We also put him on low dose of hydrochlorothiazide 12.5 mg daily yesterday. 3. Hypertension: Blood pressure is very well controlled and continue with current antihypertensive meds. 4. Anemia: Anemia is mild and stable and does not need any intervention. 5. Left hemiparesis: The patient had a stroke and still weak on the left side particularly in his left upper extremity. He will continue with rehab.
--- NOTE | 2019-02-07 17:28 | REP ---
Esophagram The procedure was performed under the direct supervision of Dr. Fremean. The images were reviewed with Dr. Freeman. Liquid barium was administered in the right and left lateral recumbent positions. During the oral and pharyngeal stages of deglutition there is laryngeal penetration. During esophageal transport there are tertiary waves with to-and-fro motion. There is a stricture in the distal esophagus which is unchanged compared to a previous examination dated 10/03/2017. Impression: 1. There is laryngeal penetration. 2. Tertiary waves with to-and-fro motion. 3. There is a stricture in the distal esophagus which is unchanged compared to a previous examination dated 10/03/2017. 1.3 minutes of fluoro time was utilized for this procedure. Reviewed by ALY Tejeda 02/03/2019 03:49 P Electronically Signed by Toni Freeman MD 02/07/2019 05:19 P
--- NOTE | 2019-02-07 17:29 | REP ---
COOKIE SWALLOW The procedure was performed under the direct supervision of Dr. Freeman. The procedure was performed with Consuelo Garcia speech pathology present. 5 ml aliquots of thin, pudding, soft solid, mixed fruit, solid and a barium pill were administered. With thin consistency barium there is laryngeal penetration. The detailed report of this examination will be provided by speech pathology. 1.5 minutes of fluoroscopy time was utilized for this procedure. Reviewed by ALY Tejeda 02/03/2019 04:00 P Electronically Signed by Toni Freeman MD 02/07/2019 05:20 P
== END 2019-02-07 12:35 | DRG 57 ==
LOC: M PM&R 12:45
PROVIDERS: ADMIT Physical Medicine & Rehabilitation; ATTEND Physical Medicine & Rehabilitation
DX: I69.354 Hemiplegia and hemiparesis following cerebral infarction affecting left non-dominant side (principal); L97.419 Non-pressure chronic ulcer of right heel and midfoot with unspecified severity; N18.4 Chronic kidney disease, stage 4 (severe); N17.9 Acute kidney failure, unspecified; I69.391 Dysphagia following cerebral infarction; Z95.1 Presence of aortocoronary bypass graft; Z95.3 Presence of xenogenic heart valve; Z98.49 Cataract extraction status, unspecified eye; Z89.411 Acquired absence of right great toe; Z89.421 Acquired absence of other right toe(s); E03.9 Hypothyroidism, unspecified; E11.621 Type 2 diabetes mellitus with foot ulcer; Z79.4 Long term (current) use of insulin; Z79.899 Other long term (current) drug therapy; Z91.041 Radiographic dye allergy status; Z88.1 Allergy status to other antibiotic agents; I12.9 Hypertensive chronic kidney disease with stage 1 through stage 4 chronic kidney disease, or unspecified chronic kidney disease; Z79.82 Long term (current) use of aspirin; E78.00 Pure hypercholesterolemia, unspecified; I25.2 Old myocardial infarction; Z87.891 Personal history of nicotine dependence; E87.5 Hyperkalemia; D63.1 Anemia in chronic kidney disease

== ENCOUNTER → 2019-02-14 | Outpatient (REF) | payer MEDICARE ==
[~2019-02-14] MED LIST changes: +ACET1TAB55 PO; +ASPI81CH8 PO; +ASPI81TA85 PO; +ATEN100T PO; +CLOP75TA2 PO; +FERR325T18 PO; +FERR325T3 PO; +FLUO20CA19 PO; +GABA-1171 PO; +GLUC1KIT IM; +HYDR12CA PO; +INSUDET SC; +LEVO112T2 PO; +LISI40TA PO; +METO1TAB32 PO; +OMEGCAP4 PO; +SYNT112T2 PO; +VITA500T40 PO
[2019-02-14 10:44] LABS: HEMATOCRIT 36.3 % (42.0-52.0); HEMOGLOBIN 11.7 g/dl (13.5-17.5); MEAN CORPUSCULAR HEMOGLOBIN 28.6 pg (27.0-33.0); MEAN CORPUSCULAR HGB CONC 32.2 g/dl (32.0-36.5); MEAN CORPUSCULAR VOLUME 88.8 fl (80.0-96.0); PLATELET COUNT, AUTOMATED 139 10^3/uL (150-450); RED BLOOD COUNT 4.09 10^6/uL (4.30-6.10); WHITE BLOOD COUNT 3.7 10^3/uL (4.0-10.0)
[2019-02-14 11:06] LABS: CREATININE FOR GFR 2.89 MG/DL (0.70-1.30)
[2019-02-14 11:07] LABS: CALCIUM LEVEL 9.3 MG/DL (8.8-10.2); GLOMERULAR FILTRATION RATE 22.8 (>42); POTASSIUM SERUM 4.3 MEQ/L (3.5-5.1)
== END ==
PROVIDERS: ATTEND Physician Assistant
DX: I63.9 Cerebral infarction, unspecified (principal)

== ENCOUNTER → 2019-02-21 | Outpatient (REF) ==
[2019-02-21 09:55] LABS: HEMATOCRIT 35.2 % (42.0-52.0); HEMOGLOBIN 11.5 g/dl (13.5-17.5); MEAN CORPUSCULAR HEMOGLOBIN 28.5 pg (27.0-33.0); MEAN CORPUSCULAR HGB CONC 32.7 g/dl (32.0-36.5); MEAN CORPUSCULAR VOLUME 87.3 fl (80.0-96.0); PLATELET COUNT, AUTOMATED 117 10^3/uL (150-450); RED BLOOD COUNT 4.03 10^6/uL (4.30-6.10); WHITE BLOOD COUNT 4.9 10^3/uL (4.0-10.0)
[2019-02-21 10:33] LABS: CALCIUM LEVEL 8.5 MG/DL (8.8-10.2); CREATININE FOR GFR 2.41 MG/DL (0.70-1.30); GLOMERULAR FILTRATION RATE 28.1 (>42)
== END ==
DX: I63.9 Cerebral infarction, unspecified (principal)

== ENCOUNTER → 2019-02-28 | Outpatient (REF) ==
[2019-02-28 08:46] LABS: HEMATOCRIT 32.2 % (42.0-52.0); HEMOGLOBIN 10.5 g/dl (13.5-17.5); MEAN CORPUSCULAR HEMOGLOBIN 28.3 pg (27.0-33.0); MEAN CORPUSCULAR HGB CONC 32.6 g/dl (32.0-36.5); MEAN CORPUSCULAR VOLUME 86.8 fl (80.0-96.0); PLATELET COUNT, AUTOMATED 129 10^3/uL (150-450); RED BLOOD COUNT 3.71 10^6/uL (4.30-6.10); WHITE BLOOD COUNT 3.5 10^3/uL (4.0-10.0)
[2019-02-28 09:02] LABS: CALCIUM LEVEL 8.7 MG/DL (8.8-10.2); CREATININE FOR GFR 2.46 MG/DL (0.70-1.30); GLOMERULAR FILTRATION RATE 27.4 (>42)
== END ==
DX: I69.90 Unspecified sequelae of unspecified cerebrovascular disease (principal)

== ENCOUNTER → 2019-03-15 | Outpatient (REF) | payer MEDICARE ==
--- NOTE | 2019-03-15 12:30 | REP ---
Clinical: Pain. Constipation. Technique: Single supine view of the abdomen and pelvis. Findings: Bowel gas pattern is nonspecific although mild fecal stasis and constipation cannot be excluded. No bowel obstruction or perforation is appreciated. No organomegaly. Skeletal structures demonstrate age-related degenerative changes. Atherosclerotic disease to the visualized aorta and vasculature noted. Impression: 1. Mild fecal stasis/constipation. Electronically Signed by Andrews Chase MD 03/15/2019 12:22 P
== END ==
PROVIDERS: ATTEND Physician Assistant
DX: K59.00 Constipation, unspecified (principal)

== ENCOUNTER → 2019-03-21 | Outpatient (REF) | payer MEDICARE ==
[~2019-03-21] MED LIST changes: -ASPI-222 PO; +ASPI-527 PO
[2019-03-21 10:24] LABS: HEMATOCRIT 32.4 % (42.0-52.0); HEMOGLOBIN 10.5 g/dl (13.5-17.5); MEAN CORPUSCULAR HEMOGLOBIN 28.5 pg (27.0-33.0); MEAN CORPUSCULAR HGB CONC 32.4 g/dl (32.0-36.5); MEAN CORPUSCULAR VOLUME 87.8 fl (80.0-96.0); PLATELET COUNT, AUTOMATED 127 10^3/uL (150-450); RED BLOOD COUNT 3.69 10^6/uL (4.30-6.10); WHITE BLOOD COUNT 3.3 10^3/uL (4.0-10.0)
[2019-03-21 10:38] LABS: CALCIUM LEVEL 8.9 MG/DL (8.8-10.2); CREATININE FOR GFR 2.15 MG/DL (0.70-1.30); GLOMERULAR FILTRATION RATE 32.1 (>42); POTASSIUM SERUM 4.2 MEQ/L (3.5-5.1)
== END ==
PROVIDERS: ATTEND Physician Assistant
DX: I67.9 Cerebrovascular disease, unspecified (principal)

== ENCOUNTER → 2019-03-28 | Outpatient (REF) | payer MEDICARE ==
[~2019-03-28] MED LIST changes: +ASPI81CH33 PO; +FLUO40CA PO; +PANT20TA2 PO; +PANT40TA3 PO; +PARO10TA3 PO
[2019-03-28 12:40] LABS: HEMOGLOBIN A1c 5.9 %
[2019-03-28 12:52] LABS: CHOLESTEROL RISK RATIO 4.379 (<5); THYROID STIMULATING HORMONE 0.538 uIU/ML (0.358-3.740)
== END ==
LOC: M SFHCPLAZ 09:45
PROVIDERS: ATTEND Family Medicine
DX: Z09 Encounter for follow-up examination after completed treatment for conditions other than malignant neoplasm (principal); E11.9 Type 2 diabetes mellitus without complications
CPT/HCPCS: 36415; 80061; 83036; 84443; G0463

== ENCOUNTER 2019-04-16 10:56 | Inpatient (IN) | payer MEDICARE ==
[~2019-04-16] VITALS: Ht 185.4 cm; Wt 89.6 kg
[~2019-04-16 10:56] MED LIST changes: -ASPI81CH33 PO; -FLUO40CA PO; -PANT20TA2 PO; -PANT40TA3 PO; -PARO10TA3 PO
[2019-04-16] MEDS ORDERED: NS 1,000 ML IV SCH ×2 (11:21→20:00)
[2019-04-16] MEDS ORDERED: PANT20TA2 PO (11:23)
[2019-04-16] MEDS ORDERED: PARO10TA3 PO (11:23)
[2019-04-16] MEDS ORDERED: ASPI81CH33 PO (11:24)
[2019-04-16 11:46] LABS: BASO % 0.1 % (0.0-1.0); EOS % 0.1 % (0.0-3.0); HEMOGLOBIN 10.8 g/dl (13.5-17.5); LYMPH % 0.8 % (24.0-44.0); MEAN CORPUSCULAR HEMOGLOBIN 28.7 pg (27.0-33.0); MEAN CORPUSCULAR HGB CONC 33.8 g/dl (32.0-36.5); MEAN CORPUSCULAR VOLUME 85.1 fl (80.0-96.0); MONO # 1.9 10^3/uL (0.0-0.8); MONO % 11.2 % (0.0-5.0); NEUTROPHILS # 14.9 10^3/uL (1.5-8.5); NEUTROPHILS % 86.7 % (36.0-66.0); PLATELET COUNT, AUTOMATED 149 10^3/uL (150-450); RED BLOOD COUNT 3.76 10^6/uL (4.30-6.10); WHITE BLOOD COUNT 17.2 10^3/uL (4.0-10.0)
[2019-04-16 11:56] LABS: INR 1.12; PROTHROMBIN TIME 14.2 SECONDS (11.8-14.0)
[2019-04-16 12:12] LABS: LYMPH # 0.1 10^3/uL (1.5-5.0)
[2019-04-16 12:26] LABS: BILIRUBIN,DIRECT 0.6 MG/DL (0.0-0.2); BILIRUBIN,TOTAL 1.5 MG/DL (0.2-1.0); CK-MB VALUE MASS 16.5 NG/ML (<3.6); MAGNESIUM LEVEL 1.5 MG/DL (1.8-2.4); MB/CK RELATIVE INDEX 12.69 (< OR =4); TOTAL PROTEIN 6.7 GM/DL (6.4-8.2); TROPONIN I 1.49 NG/ML (< 0.10)
--- NOTE | 2019-04-16 13:45 | REP ---
Right lower extremity deep vein duplex ultrasound: The deep veins demonstrate normal compression, normal Doppler color flow and normal Doppler waveforms with respiration and augmentation from the popliteal vein to the common femoral vein. Impression: There is no right lower extremity deep vein thrombus. Electronically Signed by Toni Benitez MD 04/16/2019 01:36 P
[2019-04-16] MEDS ORDERED: PIPERACILLIN/TAZOBACTAM SOD 3.375 GM in D5W MINI-BAG PLUS 50 ML IV ONE (14:00)
--- NOTE | 2019-04-16 14:17 | REP ---
CT of the abdomen pelvis without IV or bowel contrast: Comparison is 09/23/2017. The visualized lower lung alas demonstrate mild pleural thickening in the left lower lobe. The previous small left pleural effusion is no longer present. The unenhanced hepatic parenchyma is homogeneous. The gallbladder, pancreas and spleen are unremarkable. The previous evidence for chronic / acute duodenitis has resolved. The adrenals are unremarkable. There is a left renal cortical cyst posteriorly measuring 2.2 cm. This is unchanged. The unenhanced kidneys are otherwise unremarkable. There is no hydronephrosis. No renal calculi. The abdominal aorta is unremarkable except for calcified atheroma. There is no retroperitoneal adenopathy or mass. There is no bowel distension or obstruction. Pelvis: The appendix is unremarkable. The pelvic bowel loops are unremarkable. The bladder is unremarkable. There is no adenopathy or ascites. There is grade 1 compression deformity of the L1 vertebral body as an interval change. Impression: Grade 1 compression deformity of the L1 vertebral body as a change from the prior study. Mild pleural thickening in the lower lobe of the left lung. The previous evidence for chronic / acute duodenitis has resolved. Left renal cortical cyst, unchanged. Electronically Signed by Toni Benitez MD 04/16/2019 02:09 P
[2019-04-16 16:26] LABS: CK-MB VALUE MASS 29.3 NG/ML (<3.6); MB/CK RELATIVE INDEX 12.74 (< OR =4); TROPONIN I 5.27 NG/ML (< 0.10)
[2019-04-16] MEDS ORDERED: MAG SULF 1GM/100ML (MAG RUN) 1 GM in IV 1 EA IV ONE (17:00)
[2019-04-16 17:02] LABS: PARTIAL THROMBOPLASTIN TIME 29.9 SECONDS (25.0-38.4)
[2019-04-16] MEDS ORDERED: HumaLOG INSULIN (NovoLOG) PER UNIT SC SCH (18:00)
[2019-04-16] MEDS ORDERED: INSUDET SC (18:36)
[2019-04-16] MEDS ORDERED: PANT40TA3 PO (18:36)
[2019-04-16] MEDS ORDERED: FLUO40CA PO (18:36)
--- NOTE | 2019-04-16 18:51 | REPVR ---
PROCEDURE INFORMATION: Exam: US Abdomen Limited, Right Upper Quadrant Exam date and time: 04/16/2019 5:45 PM Clinical history: 73 years old, male; Abnormal findings; Abnormal lab test; Elevated liver enzymes and elevated wbc; Additional info: ? Coholedocolithiasis TECHNIQUE: Imaging protocol: Real-time ultrasound of the abdomen with image documentation. Examination was focused on the right upper quadrant. COMPARISON: RENAL US 02/10/2018 1:05 PM FINDINGS: Liver: Unremarkable. Gallbladder: Cholelithiasis. Small phrygian cap with questionable mild associated gallbladder wall thickening. Several polyps, measuring up to 5 mm. No convincing gallbladder wall thickening or pericholecystic fluid. Negative sonographic Archuleta's sign, as per the performing hadoop analyst. Common bile duct: No stones. No ductal dilatation. Pancreas: Unremarkable as visualized. Right kidney: No mass. No definite stones. No hydronephrosis. IMPRESSION: 1. Cholelithiasis with a small phrygian cap and questionable mild associated gallbladder wall thickening. If there is persistent clinical concern for acute gallbladder pathology, HIDA scan would provide a more sensitive evaluation. 2. Several gallbladder polyps. 3. No definite choledocholithiasis or biliary ductal dilatation. Electronically signed by: Ar Barrientos On 04/16/2019 18:51:19 PM
[2019-04-16] MEDS ORDERED: DEXTROSE 50% 50 ML SYRINGE IV PRN (19:15)
[2019-04-16] MEDS ORDERED: GLUCAGON FOR INJ 1 MG VIAL (J1610) SC PRN (19:15)
[2019-04-16] MEDS ORDERED: GLUCOSE 4 GM CHEW TABLET PO PRN (19:15)
[2019-04-16] MEDS ORDERED: HEPARIN DRIP 25,000 UNITS in IV 1 EA IV SCH ×4 (19:29)
[2019-04-16] MEDS ORDERED: HEPARIN SOD (PORCINE) 5000 UNITS/ML VIAL IV PRN (19:30)
[2019-04-16] MEDS ORDERED: HEPARIN SOD (PORCINE) 5000 UNITS/ML VIAL IV ONE (19:30)
--- NOTE | 2019-04-16 19:57 | HPEPDOC ---
[facility] Medical History & Physical Date of Admission Apr 16, 2019 Date of Service: Apr 16, 2019 History and Physical CHIEF COMPLAINT: Nausea vomiting HISTORY OF PRESENT ILLNESS: This is a 73-year-old man who was in his usual state of health yesterday. He had eaten chicken wings at pizza the night before with family and friends as well as some homemade pie hold his friends ate the same food and had no issues. The patient was abruptly awoken this morning at 5 AM from a sleep with profuse nausea and vomiting 10 episodes. He vomited up food ED tonight before and then dry heaves. He had some associated right flank pain which has resolved since his presentation to the emergency room at the time of my exam and emergency the patient denies any and all symptoms she denies ever feeling or expressing any chest pressure shortness of breath he denies any further or current nausea and vomiting. He tells me that he is had water and liquids today since his nausea and vomiting which is tolerated well. He denies any abdominal symptoms. He denies any urinary symptoms other than his usual nocturia. The patient tells me has not been very active since he had his recent stroke but has not had any cardiac symptoms or exertional symptoms of late. Otherwise patient denies weight loss, hair loss, headache, visual changes, cough, nausea, muscle aches, worsening arthritis, change in mood PAST MEDICAL HISTORY: 1. Coronary artery disease status post CABG 2009, complicated by cardiac arrest. 2. Aortic valve replacement bovine valve in 2009. 3. Type 2 diabetes mellitus. 4. 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 Carotid disease 6. CVA with residual left-sided deficit 7. Hypothyroidism 8 hypertension HOME MEDICATIONS: Please see below. ALLERGIES: Please see below PAST SURGICAL HISTORY: 1. Aortic valve placement. 2. CABG. 3. Cataract surgery 4. Right toe amputation 2 5. History of esophageal dilation. 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 ETOH: No alcohol for several decades, Illicit drug use: Denies, CODE STATUS: Full code FAMILY HISTORY:Reviewed and noncontributory REVIEW OF SYSTEMS: 10 systems reviewed and negative other than HPI PHYSICAL EXAMINATION: VITAL SIGNS: Temperature 99.2, pulse 71, respiratory rate 20, blood pressure 125/62, pulse oximetry 98 % on room air. GENERAL: Pleasant man sitting up in bed awake alert oriented speaking in complete sentences no acute distress HEENT: Dry mucous membranes no elevation in CVP CARDIOVASCULAR: S1 S2 regular no additional heart sounds appreciated. RESPIRATORY: Clear to auscultation bilaterally. ABDOMINAL: Bowel sounds present abdomen soft and nontender negative Archuleta sign exam is quite benign there is no CVA tenderness EXTREMITIES: No clubbing cyanosis or edema NEUROLOGICAL: Spontaneously moves all 4 extremities cranial 2 through 12 grossly intact no gross focal deficits appreciated PSYCHOLOGICAL: Appropriate LABORATORY DATA: See below. MICROBIOLOGY: Please see below. IMAGING: Lower extremity ultrasound: There is no right lower extremity deep vein thromb us. Chest x-ray: Report pending CT scan abdomen and pelvis:Grade 1 compression deformity of the L1 vertebral body as a change from the prior study. Mild pleural thickening in the lower lobe of the left lung. The previous evidence for chronic / acute duodenitis has resolved. Left renal cortical cyst, unchanged. Gallbladder ultrasound:1. Cholelithiasis with a small phrygian cap and questionable mild associated gallbladder wall thickening. If there is persistent clinical concern for acute gallbladder pathology, HIDA scan would provide a more sensitive evaluation. 2. Several gallbladder polyps. 3. No definite choledocholithiasis or biliary ductal dilatation. ASSESSMENT & PLAN: This is a 73-year-old man presenting with nausea and vomiting of unclear etiology PROBLEMS: 1. Nausea and vomiting: I certainly do have concern for silent or atypical NSTEMI given his abnormal biomarkers. He did have nausea and vomiting she is stage IV kidney disease patient as well as diabetic and quite elderly. He has known coronary disease. I did a lengthy conversation with the patient his power of estate planning attorney and friend is medically educated bedside. The patient wishes to be a full code with intraoperative intubation but adamantly refuses any potential transfer to [place] and if it means he dies here from cardiac complications. I did discuss the case with Dr. Kerr who agrees that for the time being we will hold his statin continue his aspirin and it appears he was previously on a beta aliyah but from his current med rec does not apparent if he is taking now I will start him on metoprolol 12-1/2 mg twice a day with holding parameter. I will also start him on a heparin infusion. will see the patient in consultation. Patient is adamantly declined any cardiac catheterization I'm not sure to be a great candidate for it given his advanced renal disease he would likely end up on hemodialysis following any contrast cath and he is aware of this as well. I will admit him to the medical intensive care unit continue to trend his troponins monitor him on telemetry and recheck an EKG in the morning. An atypical end STEMI certainly would not explain his abnormal liver function test. My suspicion is that his primary pathology is in his right upper quadrant and his abnormal troponin is demand ischemia related to underlying coronary disease for which at this time he is refusing further workup or evaluation/intervention. I will check an echocardiogram and reevaluate his bowel although he does not appear to have any new findings or hemodynamic instabilities The patient does have abnormalities in his liver function tests which are acute. CT scanning gallbladder ultrasound unrevealing for any choledocholithiasis or cholecystitis and his abdominal exam is quite benign. He does have cholelithiasis and may have had a transient stone which is past. I will trend his LFTs. I will hold his statin as discussed with cardiology on-call. He does not seem to have any other suspicious medications. I have restarted Dr. Magdaleno and I am awaiting a call back regarding consultation regarding the patient's hepatitis. I will check a liver duplex to exclude any portal vein thrombosis. As well as a hepatitis B profile however I feel this is less likely. He does have leukocytosis and hepatitis he is not tachycardic febrile or hypotensive although he does have a mildly elevated lactic acid my suspicion for cholangitis his lower however given his peculiar presentation I will empirically cover him with Zosyn and trend his lactic acid. Blood cultures are currently pending. Rosario PCR panel has been ordered I will check a GI PCR panel as well. I will provide him with an additional 1 L normal saline bolus and then run 100 mL per hour in order to bring him closer to 30 mL per KG initial resuscitation. I will also keep him nothing by mouth except medications until he is had a surgical evaluation and discussion presentation is more clearly declared and he has been evaluated by general surgery Abnormal urinalysis and urinary tract infection but certainly cause nausea and vomiting however it would not explain his abnormal liver function tests. His urine does appear dirty although he has no symptoms to coincide with a urine culture has been drawn he'll be empirically covered with Zosyn 2. Hypomagnesemia: He has been having some vomiting he is oriented and supplemented given his renal function I will hold off on any further supplem entation and continue to monitor 3.Leukocytosis: Certainly could be reactive he does not have bandemia but he does have a left shift he is empirically covered with antibiotics we will continue to monitor closely 4. Anemia: Appears chronic and may be related to his underlying chronic renal disease. I will check iron studies as well as occult stool for blood 5. Thrombocytopenia: Mild chronic and stable continue to monitor for now 6. Stage IV CK D: Mildly worse today BUN is elevated more than usual he is clinically dry and suspected benefit from further IV hydration and follow-up with repeat lab work. 7. CVA with left-sided residual deficits: No new focal deficits he is at his baseline 8. Type 2 diabetes: He reportedly has diabetic nephropathy however his most recent A1c was actually normal for the time being I'll place him on sliding scale 9. Hypothyroidism: Continue with Synthroid 10. Hypertension: We are holding his amlodipine in favor of metoprolol 11. Gastroesophageal reflux disease: I'll replace his by mouth PPI with IV PPI for now DVT PROPHYLAXIS:Heparin infusion DISPOSITION: Admitted to medical intensive care unit his prognosis is guarded he wishes to remain a full code but under no circumstances would he accept transfer to [place] for cardiac catheterization understanding the potential risks of . Vital Signs Vital Signs Date Time Temp Pulse Resp B/P (MAP) Pulse Ox O2 Delivery O2 Flow Rate FiO2 04/16/19 18:45 69 142/62 (88) 99 04/16/19 11:09 Room Air 04/16/19 11:04 99.2 20 Laboratory Data Labs 24H Laboratory Tests 2 04/16/19 11:25: Immature Granulocyte % (Auto) 1.1, White Blood Count 17.2H, Red Blood Count 3.76L, Hemoglobin 10.8L, Hematocrit 32.0L, Mean Corpuscular Volume 85.1, Mean Corpuscular Hemoglobin 28.7, Mean Corpuscular Hemoglobin Concent 33.8, Red Cell Distribution Width 14.9H, Platelet Count 149L, Neutrophils (%) (Auto) 86.7H, Lymphocytes (%) (Auto) 0.8L, Monocytes (%) (Auto) 11.2H, Eosinophils (%) (Auto) 0.1, Basophils (%) (Auto) 0.1, Neutrophils # (Auto) 14.9H, Lymphocytes # (Auto) 0.1L, Monocytes # (Auto) 1.9H, Eosinophils # (Auto) 0.0, Basophils # (Auto) 0.0, Nucleated Red Blood Cells % (auto) 0.0, Prothrombin Time 14.2H, Prothromb Time International Ratio 1.12, Activated Partial Thromboplast Time 29.9, Magnesium Level 1.5L, Aspartate Amino Transf (AST/SGOT) 214H, Alanine Aminotransferase (ALT/SGPT) 319H, Alkaline Phosphatase 596H, Total Bilirubin 1.5H, Direct Bilirubin 0.6H, Total Creatine Kinase 130, Creatine Kinase MB 16.5H, Creatine Kinase MB Relative Index 12.69H, Troponin I 1.49H, Total Protein 6.7, Albumin 3.0L, Albumin/Globulin Ratio 0.81L, Lipase 143 04/16/19 11:39: POC Glucose (Misc Panel) 233H, POC Sodium (Misc Panel) 139, POC Potassium (Misc Panel) 4.5, POC Chloride (Misc Panel) 107, POC Total CO2 (Misc Panel) 19.0L, POC Blood Urea Nitrogen (Misc Panel 36H, POC Ionized Calcium (Misc Panel) 4.4L, POC Creatinine (Misc Panel) 2.8H, POC Hematocrit (Misc Panel) 33.0L 04/16/19 12:37: Lactic Acid Level 2.2*H 04/16/19 13:45: Urine Color YELLOW, Urine Appearance CLOUDYH, Urine pH 7.0, Urine Specific [place] 1.015, Urine Protein 3+H, Urine Glucose (UA) 2+H, Urine Ketones TRACEH, Urine Blood 1+H, Urine Nitrite NEGATIVE, Urine Bilirubin NEGATIVE, Urine Urobilinogen 2.0H, Urine Leukocyte Esterase 2+H, Urine WBC (Auto) 55H, Urine RBC (Auto) 4H, Urine Hyaline Casts (Auto) 0, Urine Bacteria (Auto) 2+H, Urine Squamous Epithelial Cells 6, Urine Mucus (Auto) SMALL, Urine Sperm (Auto) 04/16/19 15:32: Total Creatine Kinase 230#, Creatine Kinase MB 29.3H, Creatine Kinase MB Relative Index 12.74H, Troponin I 5.27#*H 04/16/19 17:44: Lactic Acid Followup at 4 Hours 2.0 CBC/BMP Laboratory Tests 04/16/19 11:25 Red Blood Count 3.76 L, Mean Corpuscular Volume 85.1, Mean Corpuscular Hemoglobin 28.7, Mean Corpuscular Hemoglobin Concent 33.8, Red Cell Distribution Width 14.9 H, Neutrophils (%) (Auto) 86.7 H, Lymphocytes (%) (Auto) 0.8 L, Monocytes (%) (Auto) 11.2 H, Eosinophils (%) (Auto) 0.1, Basophils (%) (Auto) 0.1, Neutrophils # (Auto) 14.9 H, Lymphocytes # (Auto) 0.1 L, Monocytes # (Auto) 1.9 H, Eosinophils # (Auto) 0.0, Basophils # (Auto) 0.0 Microbiology Microbiology 04/16/19 Urine Culture, Received Pending 04/16/19 Blood Culture, Received Pending 04/16/19 Respiratory Virus Panel (PCR) (DEEDEE) - Final, Complete 04/16/19 Blood Culture, Received Pending Home Medications Scheduled Amlodipine Besylate (Amlodipine Besylate) 10 Mg Tablet, 10 MG PO DAILY Aspirin (Aspir 81) 81 Mg Tablet.dr, 81 MG PO DAILY Atorvastatin Calcium (Atorvastatin Calcium) 40 Mg Tablet, 40 MG PO DAILY Fluoxetine Hcl (Fluoxetine HCl) 40 Mg Capsule, 40 MG PO DAILY Folic Acid (Folic Acid) 1 Mg Tablet, 1 MG PO DAILY Insulin Detemir (Levemir) 100 Unit/1 Ml Vial, 50 UNITS SC DAILY Levothyroxine Sodium (Levothyroxine Sodium) 112 Mcg Tablet, 112 MCG PO DAILY [place]-3/Dha/Epa/Fish Oil ([place]-3 Fish Oil 1,000 mg Sfgl) 1,000 Mg Capsule, 1 CAP PO DAILY Pantoprazole Sodium (Pantoprazole Sodium) 40 Mg Tablet.dr, 40 MG PO DAILY Allergies Coded Allergies: Contrast Media (Verified Allergy, Unknown, 03/29/13) daptomycin (Verified Allergy, Unknown, N/V, 04/16/19) A-FIB/CHADSVASC A-FIB History Current/History of A-Fib/PAF?: ACE Vizcarra MD Apr 16, 2019 19:57
[2019-04-16] MEDS ORDERED: NS 1,000 ML IV ONE (20:00)
[2019-04-16 20:30] VITALS: BP_SYST 132; BP_SYST 136; BP_DIAS 6; BP_DIAS 64
--- NOTE | 2019-04-16 20:30 | ECGEPIP ---
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
[2019-04-16 20:40] LABS: BLOOD UREA NITROGEN 42 MG/DL (7-18); CALCIUM LEVEL 8.1 MG/DL (8.8-10.2); CARBON DIOXIDE LEVEL 20 MEQ/L (21-32); CHLORIDE LEVEL 109 MEQ/L (98-107); CREATININE FOR GFR 2.53 MG/DL (0.70-1.30); FERRITIN 560 NG/ML (26-388); GLOMERULAR FILTRATION RATE 26.6 (>42); GLUCOSE, FASTING 234 MG/DL (70-100); IRON (FE) 17 UG/DL (65-175); PERCENT SATURATION 9.8 % (19.7-50.0); POTASSIUM SERUM 4.4 MEQ/L (3.5-5.1); SODIUM LEVEL 139 MEQ/L (136-145); TOTAL IRON BINDING CAPACITY 173 UG/DL (250-450); TROPONIN I 6.97 NG/ML (< 0.10)
[2019-04-16 21:00] VITALS: BP 132/67
[2019-04-16] MEDS ORDERED: PANTOPRAZOLE 40MG INJ (PROTONIX) (C9113) IV SCH (21:00)
[2019-04-16] MEDS ORDERED: HEPARIN SOD (PORCINE) 5000 UNITS/ML VIAL SC SCH (21:00)
[2019-04-16] MEDS ORDERED: METOPROLOL TART 12.5 MG PER 1/2 TAB PO SCH (21:00)
[2019-04-16] MEDS ORDERED: ATORVASTATIN 20 MG TAB PO SCH (21:00)
[2019-04-16] MEDS ORDERED: CLOPIDOGREL 75 MG TAB PO ONE (21:15)
[2019-04-16] MEDS ORDERED: ACETAMINOPHEN TAB 650MG DOSE (2X325MG) PO PRN (21:15)
[2019-04-16] MEDS ORDERED: NITROGLYCERIN 0.3 MG SUBL TAB SL PRN (21:15)
[2019-04-16 21:44] LABS: MAGNESIUM LEVEL 1.7 MG/DL (1.8-2.4)
--- NOTE | 2019-04-16 21:57 | DS.PDOC ---
Discharge Summary General Date of Admission Apr 16, 2019 at 18:59 Date of Discharge 04.16.2019 Attending Physician: ACE ALLAN MD Specialist/Consultants Involve: Arcadio Kerr Discharge Summary PROCEDURES PERFORMED DURING STAY: [None]. ADMITTING DIAGNOSES: 1. Nausea/Vomiting DISCHARGE DIAGNOSES: 1. NSTEMI COMPLICATIONS/CHIEF COMPLAINT: Hepatitis. HISTORY OF PRESENT ILLNESS: This is a 73 yr old M w a PMH of CAD/CABG, aortic valve replacement (porcine v alve), type 2 diabetes, CKD 4 secondary to diabetic nephropathy, carotid disease, history of CVA with with residual left-sided weakness, hypothyroidism, and chronic hypertension Wwho presented with complaints of nausea and vomiting. His initial EKG showed sinus rhythm with a heart rate of 90 and findings consistent with possible inferior GA. The initial troponin was 1.49 HOSPITAL COURSE: He was admitted to the ICU and started on ASA, Plavix, Metoprolol and Heparin drip for NSTEMI. His troponin increased to greater than 5.27. Per d/w his RN began having nonsustained ventricular arrhythmias and but did not develop chest pain; he also informed her that he had changed his mind about transfer. Per discussion with Dr. Kerr. We consulted Dr. Waters at [facility] for transfer for PCI. I discussed this plan with the patient and his at approximately 1025PM. DISCHARGE MEDICATIONS: Please see below. ALLERGIES: Please see below. PHYSICAL EXAMINATION ON DISCHARGE: VITAL SIGNS: Please see below. GENERAL: well nourished well developed HEENT: NCAT CARDIOVASCULAR EXAMINATION: RRR/NMRG / radial pulses deminished RESPIRATORY EXAMINATION: CTAB EXTREMITIES: no lower extremity edema NEUROLOGICAL EXAMINATION: CN 2-12 grossly intact PSYCHIATRIC EXAMINATION: A&O able to understand and follow all commands. LABORATORY DATA: Please see below. IMAGING: see HPI PROGNOSIS: guarded ACTIVITY: [As tolerated]. DIET: NPO DISCHARGE PLAN: transfer to [facility] TO FOLLOWUP ON ON OUTPATIENT: 1. NSTEMI DISCHARGE CONDITION: [Stable]. TIME SPENT ON DISCHARGE: Approximately 25 minutes. Vital Signs/I&Os Vital Signs Date Time Temp Pulse Resp B/P (MAP) Pulse Ox O2 Delivery O2 Flow Rate FiO2 04/16/19 20:30 100.0 70 24 132/6 (48) 96 04/16/19 11:09 Room Air Laboratory Data Labs 24H Laboratory Tests 2 04/16/19 11:25: Immature Granulocyte % (Auto) 1.1, White Blood Count 17.2H, Red Blood Count 3.76L, Hemoglobin 10.8L, Hematocrit 32.0L, Mean Corpuscular Volume 85.1, Mean Corpuscular Hemoglobin 28.7, Mean Corpuscular Hemoglobin Concent 33.8, Red Cell Distribution Width 14.9H, Platelet Count 149L, Neutrophils (%) (Auto) 86.7H, Lymphocytes (%) (Auto) 0.8L, Monocytes (%) (Auto) 11.2H, Eosinophils (%) (Auto) 0.1, Basophils (%) (Auto) 0.1, Neutrophils # (Auto) 14.9H, Lymphocytes # (Auto) 0.1L, Monocytes # (Auto) 1.9H, Eosinophils # (Auto) 0.0, Basophils # (Auto) 0.0, Reticulocyte # (auto) 53.3, Nucleated Red Blood Cells % (auto) 0.0, Percent Reticulocyte Count 1.4, Reticulocyte Hemoglobin Equivalent 33.1, Prothrombin Time 14.2H, Prothromb Time International Ratio 1.12, Activated Partial Thromboplast Time 29.9, Magnesium Level 1.5L, Aspartate Amino Transf (AST/SGOT) 214H, Alanine Aminotransferase (ALT/SGPT) 319H, Alkaline Phosphatase 596H, Total Bilirubin 1.5H, Direct Bilirubin 0.6H, Total Creatine Kinase 130, Creatine Kinase MB 16.5H, Creatine Kinase MB Relative Index 12.69H, Troponin I 1.49H, Total Protein 6.7, Albumin 3.0L, Albumin/Globulin Ratio 0.81L, Lipase 143 04/16/19 11:39: POC Glucose (Misc Panel) 233H, POC Sodium (Misc Panel) 139, POC Potassium (Misc Panel) 4.5, POC Chloride (Misc Panel) 107, POC Total CO2 (Misc Panel) 19.0L, POC Blood Urea Nitrogen (Misc Panel 36H, POC Ionized Calcium (Misc Panel) 4.4L, POC Creatinine (Misc Panel) 2.8H, POC Hematocrit (Misc Panel) 33.0L 04/16/19 12:37: Lactic Acid Level 2.2*H 04/16/19 13:45: Urine Color YELLOW, Urine Appearance CLOUDYH, Urine pH 7.0, Urine Specific [place] 1.015, Urine Protein 3+H, Urine Glucose (UA) 2+H, Urine Ketones TRACEH, Urine Blood 1+H, Urine Nitrite NEGATIVE, Urine Bilirubin NEGATIVE, Urine Urobilinogen 2.0H, Urine Leukocyte Esterase 2+H, Urine WBC (Auto) 55H, Urine RBC (Auto) 4H, Urine Hyaline Casts (Auto) 0, Urine Bacteria (Auto) 2+H, Urine Squamous Epithelial Cells 6, Urine Mucus (Auto) SMALL, Urine Sperm (Auto) 04/16/19 15:32: Total Creatine Kinase 230#, Creatine Kinase MB 29.3H, Creatine Kinase MB Relative Index 12.74H, Troponin I 5.27#*H 04/16/19 17:44: Lactic Acid Followup at 4 Hours 2.0 04/16/19 19:51: Activated Partial Thromboplast Time 34.9 04/16/19 19:52: Troponin I 6.97#*H, Anion Gap 10, Glomerular Filtration Rate 26.6L, Blood Urea Nitrogen 42H, Creatinine 2.53H, Sodium Level 139, Potassium Level 4.4, Chloride Level 109H, Carbon Dioxide Level 20L, Calcium Level 8.1L, Magnesium Level 1.7L, Iron Level 17L, Total Iron Binding Capacity 173L, Transferrin % Saturation 9.8L, Ferritin 560H CBC/BMP Laboratory Tests 04/16/19 11:25 Red Blood Count 3.76 L, Mean Corpuscular Volume 85.1, Mean Corpuscular Hemo globin 28.7, Mean Corpuscular Hemoglobin Concent 33.8, Red Cell Distribution Width 14.9 H, Neutrophils (%) (Auto) 86.7 H, Lymphocytes (%) (Auto) 0.8 L, Monocytes (%) (Auto) 11.2 H, Eosinophils (%) (Auto) 0.1, Basophils (%) (Auto) 0.1, Neutrophils # (Auto) 14.9 H, Lymphocytes # (Auto) 0.1 L, Monocytes # (Auto) 1.9 H, Eosinophils # (Auto) 0.0, Basophils # (Auto) 0.0 04/16/19 19:52 Calcium Level 8.1 L Microbiology Microbiology 04/16/19 Urine Culture, Received Pending 04/16/19 Blood Culture, Received Pending 04/16/19 Respiratory Virus Panel (PCR) (DEEDEE) - Final, Complete 04/16/19 Blood Culture, Received Pending Discharge Medications Scheduled Amlodipine Besylate (Amlodipine Besylate) 10 Mg Tablet, 10 MG PO DAILY, (Reported) Aspirin (Aspir 81) 81 Mg Tablet.dr, 81 MG PO DAILY, (Reported) Atorvastatin Calcium (Atorvastatin Calcium) 40 Mg Tablet, 40 MG PO DAILY, (Reported) Fluoxetine Hcl (Fluoxetine HCl) 40 Mg Capsule, 40 MG PO DAILY, (Reported) Folic Acid (Folic Acid) 1 Mg Tablet, 1 MG PO DAILY, (Reported) Insulin Detemir (Levemir) 100 Unit/1 Ml Vial, 50 UNITS SC DAILY, (Reported) Levothyroxine Sodium (Levothyroxine Sodium) 112 Mcg Tablet, 112 MCG PO DAILY, (Reported) [place]-3/Dha/Epa/Fish Oil ([place]-3 Fish Oil 1,000 mg Sfgl) 1,000 Mg Capsule, 1 CAP PO DAILY, (Reported) Pantoprazole Sodium (Pantoprazole Sodium) 40 Mg Tablet.dr, 40 MG PO DAILY, (Reported) Allergies Coded Allergies: Contrast Media (Verified Allergy, Unknown, 03/29/13) daptomycin (Verified Allergy, Unknown, N/V, 04/16/19) GLORIA RAMOS MD Apr 16, 2019 21:57
[2019-04-16 22:00] VITALS: BP 136/64
[2019-04-16] MEDS ORDERED: PIPERACILLIN/TAZOBACTAM SOD 2.25 GM in D5W MINI-BAG PLUS 50 ML IV SCH (22:00)
[2019-04-16 22:06] LABS: CHOLESTEROL LEVEL 83 MG/DL (<200); CHOLESTEROL RISK RATIO 2.964 (<5); HDL CHOLESTEROL 28 MG/DL (>40); LDL CHOLESTEROL 24 MG/DL (<100); NON-HDL-C 55 MG/DL; TRIGLYCERIDES LEVEL 155 MG/DL (<150)
[2019-04-16 22:18] VITALS: BP 136/64
--- NOTE | 2019-04-16 22:44 | REPVR ---
PROCEDURE INFORMATION: Exam: US Duplex Artery and Vein of the Liver, Complete Exam date and time: 04/16/2019 10:10 PM Clinical history: 73 years old, male; Other: RT sided abd pain, hepatitis; Additional info: R sided abd pain and hepatitis TECHNIQUE: Imaging protocol: Real-time duplex ultrasound scan of the arterial and venous flow of the liver with B-mode, color Doppler flow and spectral waveform analysis with image documentation. Complete exam. Duplex images required to evaluate vascular conditions. COMPARISON: No relevant prior studies available. FINDINGS: Portal veins: Patent with normal directional flow, velocity and wave forms. Hepatic veins: Patent with normal directional flow, velocity and wave forms. Hepatic arteries: Patent with normal directional flow, velocity and wave forms. IMPRESSION: Unremarkable examination. Electronically signed by: Ar Barrientos On 04/16/2019 22:43:35 PM
[2019-04-16 23:00] VITALS: BP 134/64
--- NOTE | 2019-04-17 00:22 | ECGEPIP ---
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
[2019-04-17] MEDS ORDERED: LEVOTHYROXINE 112MCG TABLET (0.112MG) PO SCH (06:00)
--- NOTE | 2019-04-17 08:26 | ECGEPIP ---
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
[2019-04-17] MEDS ORDERED: FOLIC ACID 1 MG TAB PO SCH (09:00)
[2019-04-17] MEDS ORDERED: ASPIRIN 81 MG ENTERIC TAB PO SCH (09:00)
[2019-04-17] MEDS ORDERED: CLOPIDOGREL 75 MG TAB PO SCH (09:00)
[2019-04-17 10:54] LABS: HEPATITIS B SURFACE ANTIGEN NEGATIVE (NEGATIVE)
[2019-04-17 11:22] LABS: HEPATITIS B CORE ANTIBODY IGM NEGATIVE (NEGATIVE); HEPATITIS C VIRUS ABY INDEX 0.2 INDEX (<0.8)
[2019-04-17 11:24] LABS: HEPATITIS A ANTIBODY IGM NEGATIVE (NEGATIVE)
== END 2019-04-16 23:35 | disposition short-term general hospital (02) | DRG 281 ==
LOC: EDBD 10:56 → M ED 10:56 → M ED INP 18:59 → M ICU 20:30
PROVIDERS: ADMIT Internal Medicine; ATTEND Internal Medicine
DX: I21.4 Non-ST elevation (NSTEMI) myocardial infarction (principal); I69.354 Hemiplegia and hemiparesis following cerebral infarction affecting left non-dominant side; N18.4 Chronic kidney disease, stage 4 (severe); I25.10 Atherosclerotic heart disease of native coronary artery without angina pectoris; Z95.3 Presence of xenogenic heart valve; D72.829 Elevated white blood cell count, unspecified; E11.22 Type 2 diabetes mellitus with diabetic chronic kidney disease; E11.21 Type 2 diabetes mellitus with diabetic nephropathy; E83.42 Hypomagnesemia; E03.9 Hypothyroidism, unspecified; I12.9 Hypertensive chronic kidney disease with stage 1 through stage 4 chronic kidney disease, or unspecified chronic kidney disease; Z89.421 Acquired absence of other right toe(s); Z98.49 Cataract extraction status, unspecified eye; Z87.891 Personal history of nicotine dependence; K21.9 Gastro-esophageal reflux disease without esophagitis; Z79.82 Long term (current) use of aspirin; Z79.899 Other long term (current) drug therapy; Z91.041 Radiographic dye allergy status; Z88.8 Allergy status to other drugs, medicaments and biological substances

== ENCOUNTER → 2019-11-30 | Outpatient (REF) | payer MEDICARE ==
[~2019-11-30] MED LIST changes: +ASPI81CH33 PO; -FENO145T13 PO; +FENO145T7 PO; -FLUO20CA19 PO; +FLUO20CA22 PO; +FLUO40CA PO; +PANT20TA2 PO; +PANT40TA3 PO; +PARO10TA3 PO
[2019-11-30 12:15] LABS: HEMATOCRIT 30.5 % (42.0-52.0); HEMOGLOBIN 9.5 g/dl (13.5-17.5); MEAN CORPUSCULAR HEMOGLOBIN 27.4 pg (27.0-33.0); MEAN CORPUSCULAR HGB CONC 31.1 g/dl (32.0-36.5); MEAN CORPUSCULAR VOLUME 87.9 fl (80.0-96.0); PLATELET COUNT, AUTOMATED 141 10^3/uL (150-450); RED BLOOD COUNT 3.47 10^6/uL (4.30-6.10); WHITE BLOOD COUNT 4.4 10^3/uL (4.0-10.0)
[2019-11-30 12:40] LABS: CALCIUM LEVEL 8.3 MG/DL (8.8-10.2); CREATININE FOR GFR 2.24 MG/DL (0.70-1.30); GLOMERULAR FILTRATION RATE 30.5 (>42); POTASSIUM SERUM 4.4 MEQ/L (3.5-5.1)
[2019-11-30 13:35] LABS: HEMOGLOBIN A1c 4.9 %
== END ==
LOC: M SFHCPLAZ 10:32
PROVIDERS: ATTEND Family Medicine
DX: E11.9 Type 2 diabetes mellitus without complications (principal); I12.9 Hypertensive chronic kidney disease with stage 1 through stage 4 chronic kidney disease, or unspecified chronic kidney disease; N18.4 Chronic kidney disease, stage 4 (severe); D64.9 Anemia, unspecified
CPT/HCPCS: 36415; 80048; 83036; 85027; G0463

== ENCOUNTER → 2020-03-12 | Outpatient (REF) | payer MEDICARE ==
[~2020-03-12] MED LIST changes: -AMLO10TA5 PO; +AMLO1TAB25 PO; -ASPI81TA85 PO; +ASPI81TA86 PO; -PANT20TA2 PO; +PANT20TA6 PO; +PANT40TA29 PO; -PANT40TA3 PO
[2020-03-12 19:15] LABS: APPEARANCE, URINE CLOUDY (CLEAR); BACTERIA, URINE AUTO NEGATIVE (NEGATIVE); BILIRUBIN, URINE AUTO NEGATIVE (NEGATIVE); BLOOD, URINE BLOOD 2+ (NEGATIVE); COLOR, URINE YELLOW (YELLOW); GLUCOSE, URINE (UA) AUTO 1+ mg/dL (NEGATIVE); KETONE, URINE AUTO NEGATIVE (NEGATIVE); LEUKOCYTE ESTERASE, URINE AUTO 3+ (NEGATIVE); NITRITE, URINE AUTO NEGATIVE (NEGATIVE); PROTEIN, URINE AUTO 2+ mg/dL (NEGATIVE); RBC, URINE AUTO 47 /HPF (0-3); SPECIFIC GRAVITY URINE AUTO 1.013 (1.002-1.035); SQUAMOUS EPITHELIAL CELL UR AU 3 /HPF (0-6); UROBILINOGEN, URINE AUTO 0.2 mg/dL (0.0-2.0); WBC, URINE AUTO TNTC /HPF (0-3)
== END ==
LOC: M SFHCPLAZ 18:01
PROVIDERS: ATTEND Family Medicine
DX: R30.0 Dysuria (principal)

== ENCOUNTER → 2020-03-15 | Outpatient (CLI) | payer MEDICARE ==
--- NOTE | 2020-04-10 11:16 | REP ---
RENAL AND BLADDER ULTRASOUND TECHNIQUE: Real-time padilla scale and color evaluation using curved array transducer. FINDINGS: Bilateral kidneys are relatively normal in contour, size, echogenicity and reniform shape without hydronephrosis. The right kidney measures 11.2 x 6.2 x 5.0 cm and includes a 2.3 x 1.8 x 0.9 cm mid pole cyst. Left kidney measures 10.0 x 5.0 x 4.7 cm and includes a 1.9 x 2.3 x 1.9 cm upper pole cyst. The bladder is normal in appearance without wall thickening or mass lesion. Prevoid bladder measures 7.5 x 5.6 x 6.3 cm (172 mL). Postvoid bladder measures 6.2 x 3.8 x 6.0 cm (94 mL), bilateral ureteral jets are identified. IMPRESSION: * Small solitary simple bilateral renal cysts. * Bladder demonstrates increased postvoid residual volume of approximately 50% and warrants clinical correlation and follow-up. [facility]
== END ==
LOC: M WHC 13:55
PROVIDERS: ATTEND Family Medicine
DX: R39.14 Feeling of incomplete bladder emptying (principal)